=== PATIENT | female | born 1950 | race Caucasian/White ===

== ENCOUNTER → 2017-09-19 | Outpatient (CLI) | payer MEDICARE ==
[2017-09-19 11:23] LABS: Appearance,Urine Cloudy (Clear); Bacteria,Urine Many /hpf; Bilirubin,Urine Negative (Negative); Blood,Urine Negative (Negative); Color,Urine Yellow; Glucose,Urine (UA) Negative (Negative); Ketones,Urine Negative (Negative); Leukocyte Esterase,Urine Large (Negative); Mucus,Urine Rare /hpf; Nitrite,Urine Positive (Negative); Protein,Urine Negative (Negative); RBC,Urine 5 /hpf (0-5); Specific Gravity,Urine 1.014 (1.001-1.035); Squamous Epithelial Cell,Urine 4 /hpf (0-4); Urobilinogen,Urine <2.0 mg/dL (<2.0); WBC,Urine 83 /hpf (0-5)
[2017-09-19 11:45] LABS: Basophils % (A) 0 %; Eosinophils # (A) 0.2 k/uL (0-0.7); Eosinophils % (A) 3 %; HCT 41.9 % (34.0-46.0); Lymphocytes # (A) 1.9 k/uL (1.0-4.8); Lymphocytes % (A) 28 %; MCH 29.3 pg (25.0-35.0); MCHC 33.5 g/dL (31.0-37.0); MCV 87.6 fL (80.0-100.0); Mean Platelet Volume 7.3; Monocytes # (A) 0.4 k/uL (0-1.0); Monocytes % (A) 5 %; Neutrophils # (A) 4.3 k/uL (1.3-7.7); Neutrophils % (A) 62 %; Platelet Count 256 k/uL (150-450); RBC 4.78 m/uL (3.80-5.40); RDW 13.4 % (11.5-15.5); WBC 6.8 k/uL (3.8-10.6)
[2017-09-19 12:07] LABS: ALT 76 U/L (9-52); AST 42 U/L (14-36); Albumin 4.2 g/dL (3.5-5.0); Alkaline Phosphatase 57 U/L (38-126); Anion Gap 11 mmol/L; Blood Urea Nitrogen 23 mg/dL (7-17); Carbon Dioxide 29 mmol/L (22-30); Chloride 102 mmol/L (98-107); Cholesterol 210 mg/dL (<200); Glucose 105 mg/dL (74-99); HDL Cholesterol 63 mg/dL (40-60); LDL Cholesterol,Calculated 131 mg/dL (0-99); Potassium 4.1 mmol/L (3.5-5.1); Sodium 142 mmol/L (137-145); Total Bilirubin 0.5 mg/dL (0.2-1.3); Total Protein 6.9 g/dL (6.3-8.2); Triglycerides 82 mg/dL (<150)
[2017-09-19 16:07] LABS: Vitamin D 25 Hydroxy 24.8 ng/mL (30.0-100.0)
[2017-09-19 19:15] LABS: Hepatitis C IgG Antibody Non-Reactive (Non-Reactive)
== END | disposition home or self-care (01) ==
LOC: LABWHC1 10:44
PROVIDERS: ATTEND Internal Medicine
DX: E55.9 Vitamin D deficiency, unspecified (principal); I10 Essential (primary) hypertension; Z13.9 Encounter for screening, unspecified
CPT/HCPCS: 36415; 80053; 80061; 81001; 82306; 85025; 86803

== ENCOUNTER → 2017-10-06 | Outpatient (CLI) | payer MEDICARE ==
--- NOTE | 2017-10-06 14:14 | US ---
EXAMINATION TYPE: US liver DATE OF EXAM: 10/06/2017 COMPARISON: NONE CLINICAL HISTORY: R74.8 ABN LIVER ENZYMES. Elevated liver enzymes EXAM MEASUREMENTS: Liver Length: 14.4 cm Gallbladder Wall: 0.3 cm CBD: 0.4 cm Right Kidney: 9.1 x 4.7 x 4.8 cm Pancreas: Tail obscured by overlying bowel gas, visualized portions appear wnl Liver: attenuating , minimal fatty infiltration may be present. Gallbladder: no evidence of stones Evidence for sonographic Tavarez's sign: no CBD: appears wnl Right Kidney: no evidence of hydronephrosis IMPRESSION: 1. Normal right upper quadrant ultrasound.
== END | disposition home or self-care (01) ==
LOC: RADUSWWP 13:18
PROVIDERS: ATTEND Internal Medicine
DX: R74.8 Abnormal levels of other serum enzymes (principal)
CPT/HCPCS: 76705

== ENCOUNTER → 2017-10-28 | Outpatient (CLI) | payer MEDICARE ==
--- NOTE | 2017-10-29 10:47 | MM ---
Reason for exam: screening (asymptomatic). Last mammogram was performed 1 year and 2 months ago. History: Patient is postmenopausal and has history of other cancer at age 17. Family history of breast cancer in sister. Physical Findings: A clinical breast exam by your physician is recommended on an annual basis and results should be correlated with mammographic findings. MG 3D Screening Mammo W/Cad Bilateral CC and MLO view(s) were taken. Prior study comparison: August 14, 2016, mammogram, performed at [facility]. There are scattered fibroglandular densities. Finding: There are typically benign vascular calcifications in both breasts. There is no discrete abnormality. ASSESSMENT: Benign, BI-RAD 2 RECOMMENDATION: Routine screening mammogram of both breasts in 1 year.
== END | disposition home or self-care (01) ==
LOC: RADMAMWWP 06:49
PROVIDERS: ATTEND Internal Medicine
DX: Z12.31 Encounter for screening mammogram for malignant neoplasm of breast (principal)
CPT/HCPCS: 77063; 77067

== ENCOUNTER → 2018-09-18 | Outpatient (CLI) | payer MEDICARE ==
--- NOTE | 2018-09-18 10:29 | US ---
EXAMINATION TYPE: US liver DATE OF EXAM: 09/18/2018 COMPARISON: US 2018 CLINICAL HISTORY: R74.8 ABN LEVELS OF SERUM ENZYMES. Patient states no other symptoms EXAM MEASUREMENTS: Liver Length: 13.4 cm Gallbladder Wall: 0.2 cm CBD: 0.4 cm Right Kidney: 8.3 x 4.7 x 4.5 cm Difficult and limited study due to patient body habitus Pancreas: visualized portions wnl, head and tail limited by overlying midline bowel gas Liver: There is increased echogenicity of the hepatic parenchyma with diminished visualization of th e portal triads most commonly relating to hepatic steatosis and limiting evaluation for underlying he patic masses. Gallbladder: wnl Evidence for sonographic Tavarez's sign: no CBD: visualized portions wnl, limited by overlying bowel gas Right Kidney: measures small in size IMPRESSION: 1. Sonographic findings most commonly related to hepatic steatosis appearing mild to moderate degree. Correlate with liver function test results. 2. No sonographic evidence of cholelithiasis or acute cholecystitis.
== END | disposition home or self-care (01) ==
LOC: RADUSWWP 09:21
PROVIDERS: ATTEND Internal Medicine
DX: R74.8 Abnormal levels of other serum enzymes (principal)
CPT/HCPCS: 76705

== ENCOUNTER → 2019-10-11 | Outpatient (CLI) | payer MEDICARE ==
--- NOTE | 2019-10-11 14:52 | CT ---
EXAMINATION TYPE: CT brain wo con DATE OF EXAM: 10/11/2019 COMPARISON: None HISTORY: ALMARAZ, vision changes CT DLP: 945.[address] of the brain was performed. The ventricles, basal cisterns and sulci overlying the cerebral convexities demonstrate mild enlargem ent. There is no evidence for intracranial hemorrhage or sulcal effacement. There is decreased attenuation about the periventricular white matter and deep white matter of both c erebral hemispheres, compatible with chronic small vessel ischemia. Differential diagnosis does inclu de demyelination. No mass effects are seen.No midline shift. Osseous calvarium is intact. If symptoms persist consider MRI. IMPRESSION: 1. Age related atrophic and chronic small vessel ischemic change without acute intracranial process s een at this time.
== END | disposition home or self-care (01) ==
LOC: RADCTMAIN 14:15
PROVIDERS: ATTEND Internal Medicine
DX: G31.9 Degenerative disease of nervous system, unspecified (principal); R90.89 Other abnormal findings on diagnostic imaging of central nervous system
CPT/HCPCS: 70450

== ENCOUNTER → 2021-12-25 | Outpatient (CLI) | payer MEDICARE ==
--- NOTE | 2021-12-26 03:03 | MR ---
EXAMINATION TYPE: MR brain wo/w con DATE OF EXAM: 12/25/2021 COMPARISON: None HISTORY: Rapid onset dementia, hx lymphoma. CONTRAST: Standard multiplanar, multisequence MRI departmental protocol images were obtained without contrast a nd with 7 mL intravenous Gadavist gadolinium contrast. Ventricles of normal size. There is no mass effect or midline shift. There is no evidence of intracra nial hemorrhage. There is multiple foci of increased signal on the T2 and FLAIR images in the white m atter in both cerebral hemispheres. Total numbers approximately 20 and these measure up to 6 mm. The brainstem is intact. Cerebellum is intact. Corpus callosum is intact. There is mild cerebral atrophy. Diffusion images show no evidence of an acute infarct. The contrast images show normal enhancement of the venous sinuses. There is no pathologic enhancement . IMPRESSION: Cerebral atrophy. White matter signal changes likely related to microvascular ischemia. Demyelinating disease I think is less likely. No evidence of cortical infarct. No evidence of metastatic disease.
== END | disposition home or self-care (01) ==
LOC: RADMRIMAIN 12:08
PROVIDERS: ATTEND Psychiatry & Neurology Neurology
DX: F03.90 Unspecified dementia, unspecified severity, without behavioral disturbance, psychotic disturbance, mood disturbance, and anxiety (principal)
CPT/HCPCS: 70553; A9585

== ENCOUNTER 2023-02-05 13:37 | Inpatient (IN) | payer MEDICARE ==
--- NOTE | 2023-02-05 15:17 | ED ---
General Adult HPI - General Chief complaint: Recheck/Abnormal Lab/Rx Stated complaint: extremity pain, loss of memory Source: patient, family Mode of arrival: ambulatory Limitations: altered mental status - History of Present Illness Initial comments: Patient is a 72-year-old woman who arrives with a family friend who states that the patient is too demented to care for herself and that the patient's is currently admitted at [facility]. The patient has been complaining of some aches in the extremities but does not complain of that when I ask her. No fevers noted. Patient denies head, neck, chest or back pain. No change in urination or bowel movements noted -: unknown Consistency: constant Improves with: none Worsens with: none Associated Symptoms: denies other symptoms - Related Data Home Medications Medication Instructions Recorded Confirmed Donepezil HCl [Aricept] 10 mg PO BID 02/05/23 02/05/23 Omeprazole [PriLOSEC] 40 mg PO DAILY 02/05/23 02/05/23 amLODIPine [Norvasc] 5 mg PO DAILY 02/05/23 02/05/23 Previous Rx's Medication Instructions Recorded ALPRAZolam [Xanax] 0.25 mg PO BID PRN #4 tab 02/07/23 Calcium Carbonate [Tums] 1,000 mg PO Q4HR PRN tab 02/07/23 QUEtiapine [SEROquel] 12.5 mg PO HS PRN tab 02/07/23 Allergies Allergy/AdvReac Type Severity Reaction Status Date / Time lisinopril Allergy Swelling Verified 02/16/23 14:11 Review of Systems ROS Statement: Those systems with pertinent positive or pertinent negative responses have been documented in the HPI. ROS Other: All systems not noted in ROS Statement are negative. Constitutional: Denies: fever Respiratory: Denies: cough, dyspnea Cardiovascular: Denies: chest pain Gastrointestinal: Denies: abdominal pain, vomiting Genitourinary: Denies: dysuria Musculoskeletal: Denies: back pain Neurological: Denies: headache Past Medical History Past Medical History: Unable to Obtain, Dementia History of Any Multi-Drug Resistant Organisms: None Reported Past Surgical History: Unable to Obtain Past Psychological History: Anxiety, Depression Smoking Status: Never smoker Past Alcohol Use History: Rare Past Drug Use History: None Reported General Exam Limitations: altered mental status General appearance: alert, in no apparent distress Head exam: Present: atraumatic, normocephalic Eye exam: Present: normal appearance. Absent: scleral icterus, conjunctival injection ENT exam: Present: normal oropharynx Neck exam: Present: normal inspection, full ROM. Absent: tenderness Respiratory exam: Present: normal lung sounds bilaterally. Absent: respiratory distress, wheezes, rales, rhonchi, stridor Cardiovascular Exam: Present: regular rate, normal rhythm, normal heart sounds. Absent: systolic murmur, diastolic murmur, rubs, gallop GI/Abdominal exam: Present: soft. Absent: distended, tenderness, guarding, rebound, rigid, mass Extremities exam: Present: normal inspection, normal capillary refill. Absent: pedal edema, calf tenderness Back exam: Present: normal inspection. Absent: CVA tenderness (R), CVA tenderness (L) Neurological exam: Present: alert, CN II-XII intact. Absent: oriented X3 (Patient is oriented to person and realizes she is at a hospital), motor sensory deficit Skin exam: Present: warm, dry, intact, normal color. Absent: rash Course Vital Signs 02/05/23 02/06/23 02/06/23 13:51 07:03 12:20 Temperature 97.6 F 97.1 F L Pulse Rate 62 72 Respiratory 20 18 18 Rate Blood Pressure 152/86 169/91 O2 Sat by Pulse 99 95 99 Oximetry 02/06/23 17:09 Temperature Pulse Rate 57 L Respiratory 18 Rate Blood Pressure 162/85 O2 Sat by Pulse 99 Oximetry EKG Findings - EKG Results: EKG: interpreted by ERMD, sinus rhythm, normal axis EKG shows: bradycardia (Rate 49 bpm) - Blocks, [place], Hypertrophy, ST Abn: QRS axis and voltage: low voltage (<0.5 MV total QRS and <1.0 MV in each precordial lead) Medical Decision Making - Medical Decision Making This patient is a 72-year-old woman here to have evaluation of altered mental status. He patient's physical exam is most consistent with probable dementia. The workup is unremarkable. After the workup is completed, the patient's stenotypist could not be found. Nursing staff made a number of calls to attempt to reach someone who is able to care for the patient but was unable. Patient will be admitted overnight as she is unable to care for herself. Social work will be involved to see if patient is able to be discharged as safe location requires placement. Was pt. sent in by a medical professional or institution (, GEOVANNY, FEED PROJECT ENGINEER, urgent care, hospital, or group home...) When possible be specific @ -[No] Did you speak to anyone other than the patient for history (EMS, parent, family, police, friend...)? What history was obtained from this source @ -[The patient's friend had given most of the history as the patient appears to have significant underlying dementia Did you review nursing and triage notes (agree or disagree)? Why? @ -[I reviewed and agree with nursing and triage notes] Were old charts reviewed (outside hosp., previous admission, EMS record, old EKG, old radiological studies, urgent care reports/EKG's, group home records)? Report findings @ -[No old charts were reviewed] Differential Diagnosis (chest pain, altered mental status, abdominal pain women, abdominal pain men, vaginal bleeding, weakness, fever, dyspnea, syncope, headache, dizziness, GI bleed, back pain, seizure, CVA, palpatations, mental health, musculoskeletal)? @ -[Differential Altered Mental Status: Hypoglycemia, DKA, hypercapnia, ETOH, overdose, CO poisoning, trauma, myxedema coma, HTN encephalopathy, infection, encephalitis, psychosis, intercranial hemorrhage, hepatic encephalopathy, meningitis, CVA, this is not meant to be an all-inclusive list EKG interpreted by me (3pts min.). @ -[As above] X-rays interpreted by me (1pt min.). @ -[None done] CT interpreted by me (1pt min.). @ -[As above U/S interpreted by me (1pt. min.). @ -[None done] What testing was considered but not performed or refused? (CT, X-rays, U/S, labs)? Why? @ -[None] What meds were considered but not given or refused? Why? @ -[None] Did you discuss the management of the patient with other professionals (professionals i.e. GEOVANNY Rdz, FEED PROJECT ENGINEER, lab, RT, psych nurse, social media intern, licensing manager, teacher, natural resource officer, hospice case manager)? Give summary @ -[Discussed with admitting physician Was smoking cessation discussed for >3mins.? @ -[No] Was critical care preformed (if so, how long)? @ -[No] Were there social determinants of health that impacted care today? How? (Homelessness, low income, unemployed, alcoholism, drug addiction, transportation, low edu. Level, literacy, decrease access to med. care, nursing home, rehab)? @ -[No] Was there de-escalation of care discussed even if they declined (Discuss DNR or withdrawal of care, Hospice)? DNR status @ -[No] What co-morbidities impacted this encounter? (DM, HTN, Smoking, COPD, CAD, Cancer, CVA, ARF, Chemo, Hep., AIDS, mental health diagnosis, sleep apnea, morbid obesity)? @ -[None] Was patient admitted / discharged? Hospital course, mention meds given and route, prescriptions, significant lab abnormalities, going to OR and other pertinent info. @ -[The patient is admitted, as there is not a definite safe discharge location Undiagnosed new problem with uncertain prognosis? @ -[No] Drug Therapy requiring intensive monitoring for toxicity (Heparin, Nitro, Insulin, Cardizem)? @ -[No] Were any procedures done? @ -[No] Diagnosis/symptom? @ -[Altered mental status Suspect acute on chronic dementia Acute, or Chronic, or Acute on Chronic? @ -[As above Uncomplicated (without systemic symptoms) or Complicated (systemic symptoms)? @ -[Uncomplicated Side effects of treatment? @ -[No] Exacerbation, Progression, or Severe Exacerbation? @ -[No] Poses a threat to life or bodily function? How? (Chest pain, USA, IA, pneumonia, PE, COPD, DKA, ARF, appy, cholecystitis, CVA, Diverticulitis, Homicidal, Suicidal, threat to staff... and all critical care pts) @ -[No] - Lab Data Result diagrams: 02/17/23 06:38 02/17/23 06:38 Lab Results 02/05/23 02/05/23 02/05/23 Range/Units 15:30 15:30 15:30 WBC 6.5 (3.8-10.6) k/uL RBC 4.62 (3.80-5.40) m/uL Hgb 13.8 (11.4-16.0) gm/dL Hct 39.9 (34.0-46.0) % MCV 86.4 (80.0-100.0) fL MCH 29.9 (25.0-35.0) pg MCHC 34.6 (31.0-37.0) g/dL RDW 13.0 (11.5-15.5) % Plt Count 209 (150-450) k/uL MPV 7.8 Neutrophils % 67 % Lymphocytes % 24 % Monocytes % 7 % Eosinophils % 1 % Basophils % 0 % Neutrophils # 4.4 (1.3-7.7) k/uL Lymphocytes # 1.6 (1.0-4.8) k/uL Monocytes # 0.4 (0-1.0) k/uL Eosinophils # 0.1 (0-0.7) k/uL Basophils # 0.0 (0-0.2) k/uL Sodium 137 (137-145) mmol/L Potassium 3.9 (3.5-5.1) mmol/L Chloride 103 (98-107) mmol/L Carbon Dioxide 26 (22-30) mmol/L Anion Gap 8 mmol/L BUN 17 (7-17) mg/dL Creatinine 1.03 (0.52-1.04) mg/dL Est GFR (CKD-EPI)AfAm 63 (>60 ml/min/1.73 sqM) Est GFR (CKD-EPI)NonAf 55 (>60 ml/min/1.73 sqM) Glucose 89 (74-99) mg/dL Calcium 9.1 (8.4-10.2) mg/dL Total Bilirubin 0.6 (0.2-1.3) mg/dL AST 36 (14-36) U/L ALT 25 (4-34) U/L Alkaline Phosphatase 44 (38-126) U/L Total Protein 6.8 (6.3-8.2) g/dL Albumin 4.3 (3.5-5.0) g/dL Urine Color Colorless Urine Appearance Clear (Clear) Urine pH 7.0 (5.0-8.0) Ur Specific [place] 1.004 (1.001-1.035) Urine Protein Negative (Negative) Urine Glucose (UA) Negative (Negative) Urine Ketones Negative (Negative) Urine Blood Negative (Negative) Urine Nitrite Negative (Negative) Urine Bilirubin Negative (Negative) Urine Urobilinogen <2.0 (<2.0) mg/dL Ur Leukocyte Esterase Negative (Negative) Disposition Clinical Impression: Dementia, Altered mental status Disposition: ADMITTED IP TO THIS HOSP Condition: Poor Is patient prescribed a controlled substance at d/c from ED?: No
[2023-02-05 16:02] LABS: Basophils % (A) 0 %; Eosinophils # (A) 0.1 k/uL (0-0.7); Eosinophils % (A) 1 %; HCT 39.9 % (34.0-46.0); HGB 13.8 gm/dL (11.4-16.0); Lymphocytes # (A) 1.6 k/uL (1.0-4.8); Lymphocytes % (A) 24 %; MCH 29.9 pg (25.0-35.0); MCHC 34.6 g/dL (31.0-37.0); MCV 86.4 fL (80.0-100.0); Mean Platelet Volume 7.8; Monocytes # (A) 0.4 k/uL (0-1.0); Monocytes % (A) 7 %; Neutrophils # (A) 4.4 k/uL (1.3-7.7); Neutrophils % (A) 67 %; Platelet Count 209 k/uL (150-450); RBC 4.62 m/uL (3.80-5.40); WBC 6.5 k/uL (3.8-10.6)
[2023-02-05 16:18] LABS: Albumin 4.3 g/dL (3.5-5.0); Calcium 9.1 mg/dL (8.4-10.2); Potassium 3.9 mmol/L (3.5-5.1); Total Bilirubin 0.6 mg/dL (0.2-1.3); Total Protein 6.8 g/dL (6.3-8.2)
--- NOTE | 2023-02-05 17:13 | XR ---
EXAMINATION TYPE: XR chest 2V DATE OF EXAM: 02/05/2023 5:07 PM COMPARISON: None TECHNIQUE: XR chest 2V Frontal and lateral views of the chest. CLINICAL INDICATION:Female, 72 years old with history of mental status change; FINDINGS: Lungs/Pleura: There is no evidence of pleural effusion, focal consolidation, or pneumothorax. Right upper lobe calcified granuloma Pulmonary vascularity: Unremarkable. Heart/mediastinum: Cardiomediastinal silhouette is unremarkable. Musculoskeletal: No acute osseous pathology. Mild degenerative disc disease of the thoracic spine. IMPRESSION: No acute cardiopulmonary disease/process.
[2023-02-05 18:17] LABS: Appearance,Urine Clear (Clear); Bilirubin,Urine Negative (Negative); Blood,Urine Negative (Negative); Color,Urine Colorless; Glucose,Urine (UA) Negative (Negative); Ketones,Urine Negative (Negative); Leukocyte Esterase,Urine Negative (Negative); Nitrite,Urine Negative (Negative); Protein,Urine Negative (Negative); Specific Gravity,Urine 1.004 (1.001-1.035); Urobilinogen,Urine <2.0 mg/dL (<2.0)
--- NOTE | 2023-02-05 19:15 | CT ---
EXAMINATION TYPE: CT brain wo con CT DLP: 1088.4 mGycm, Automated exposure control for dose reduction was used. DATE OF EXAM: 02/05/2023 6:51 PM COMPARISON: Prior CT Brain from 10/11/2019. CLINICAL INDICATION:Female, 72 years old with history of mental status change, AMS TECHNIQUE: Brain: Multiple axial CT images of the brain were obtained without IV contrast. Coronal and sagittal reformats reviewed. FINDINGS: Brain: Extra-axial spaces: No abnormal extra-axial fluid collections. Ventricular system: Within normal limits Cerebral parenchyma: Cerebral atrophy. No acute intraparenchymal hemorrhage or mass effect. The dale -white junction is well differentiated. Scattered hypoattenuating areas are seen within the white mat ter. Cerebellum: Unremarkable. Mass effect: No evidence of midline shift. Intracranial vasculature: unremarkable Soft tissues: Normal. Calvarium/osseous structures: No depressed skull fracture. Benign hyperostosis frontalis noted. Paranasal sinuses and mastoid air cells: Clear Visualized orbits: Orbital contents are intact. IMPRESSION: 1. No acute intracranial process. 2. Nonspecific white matter changes, likely secondary to chronic small vessel ischemic disease.
[2023-02-05] MEDS ORDERED: CALCIUM CARBONATE 500 MG CHEWABLE PO PRN (23:56)
[2023-02-05] MEDS ORDERED: ONDANSETRON 4 MG/2 ML VIAL IVP PRN (23:56)
[2023-02-05] MEDS ORDERED: ALPRAZolam 0.25 MG TAB PO PRN (23:56)
[2023-02-05] MEDS ORDERED: NALOXONE 0.4 MG/ML 1 ML VIAL IV PRN (23:56)
[2023-02-06] MEDS: SODIUM CHLORIDE 0.9% 1,000 ML IV SCH (07:30)
[2023-02-06] MEDS: ACETAMINOPHEN TAB 325 MG TAB PO PRN (08:56)
--- NOTE | 2023-02-06 11:59 | P.HPIM ---
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 Basic labs are essentially within normal limits. No significant abnormality was evident on chest x-ray and CT of the head REVIEW OF SYSTEMS: Unable to obtain PHYSICAL EXAMINATION: GENERAL: The patient is alert and oriented x1, not in any acute distress. Well developed, well nourished. HEENT: Pupils are round and equally reacting to light. EOMI. No scleral icterus. No conjunctival pallor. Normocephalic, atraumatic. No pharyngeal erythema. No thyromegaly. CARDIOVASCULAR: S1 and S2 present. No murmurs, rubs, or gallops. PULMONARY: Chest is clear to auscultation, no wheezing or crackles. ABDOMEN: Soft, nontender, nondistended, normoactive bowel sounds. No palpable organomegaly. MUSCULOSKELETAL: No joint swelling or deformity. EXTREMITIES: No cyanosis, clubbing, or pedal edema. NEUROLOGICAL: Gross neurological examination did not reveal any focal deficits. Limited neurological exam because of her advanced dementia SKIN: No rashes. Assessment and plan -Advanced dementia patient is presently not encephalopathic patient confusion is at her baseline. We'll obtain PT and OT consultation patient may need placement at the subacute rehab or a dementia unit. -Anxiety disorder patient is on Xanax scheduled which will be discontinued will cut down the dose of Xanax will make it as needed. Will use Seroquel for agitation. -Hypertension DVT prophylaxis: Lovenox Past Medical History Past Medical History: Unable to Obtain, Dementia History of Any Multi-Drug Resistant Organisms: None Reported Past Surgical History: Unable to Obtain Past Psychological History: Anxiety, Depression Smoking Status: Never smoker Past Alcohol Use History: Rare Past Drug Use History: None Reported Medications and Allergies Home Medications Medication Instructions Recorded Confirmed Type ALPRAZolam [Xanax] 0.5 mg PO BID 02/05/23 02/05/23 History ALPRAZolam [Xanax] 1 mg PO DAILY@1500 02/05/23 02/05/23 History Donepezil HCl [Aricept] 10 mg PO BID 02/05/23 02/05/23 History Omeprazole [PriLOSEC] 40 mg PO DAILY 02/05/23 02/05/23 History amLODIPine [Norvasc] 5 mg PO DAILY 02/05/23 02/05/23 History methocarbamoL [Robaxin-750] 375 mg PO BID 02/05/23 02/05/23 History Allergies Allergy/AdvReac Type Severity Reaction Status Date / Time No Known Allergies Allergy Verified 02/05/23 18:46 Physical Exam Vitals: Vital Signs Temp Pulse Resp BP Pulse Ox 02/06/23 07:03 18 95 02/05/23 13:51 97.6 F 62 20 152/86 99 Results CBC & Chem 7: 02/05/23 15:30 02/05/23 15:30
[2023-02-06] MEDS: amLODIPine 5 MG TAB PO SCH (12:37)
[2023-02-06] MEDS: ENOXAPARIN 40 MG/0.4 ML SYRINGE SQ SCH (13:14)
[2023-02-06] MEDS: DONEPEZIL 10 MG TAB PO SCH (21:44)
[2023-02-07] MEDS: SODIUM CHLORIDE 0.9% 1,000 ML IV SCH (06:33)
[2023-02-07] MEDS: PANTOPRAZOLE 40 MG TABLET PO SCH (06:44)
[2023-02-07] MEDS: ENOXAPARIN 40 MG/0.4 ML SYRINGE SQ SCH (07:42)
[2023-02-07] MEDS: amLODIPine 5 MG TAB PO SCH (07:42)
[2023-02-07] MEDS: DONEPEZIL 10 MG TAB PO SCH ×2 (07:42→21:39)
--- NOTE | 2023-02-07 15:09 | P.PN ---
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 Basic labs are essentially within normal limits. No significant abnormality was evident on chest x-ray and CT of the head 02/07/2023 Pending PT/OT evauation and placement. Hemodynamically stable. Discharge planning in progress with social work. Patient is evaluated today up in the chair with staff at the bedside. Patient is alert x 1 and pleasant with no acute complaints. APS services is following the patient. Review of Systems Constitutional: Denied any fatigue denied any fever. Cardio vascular: denied any chest pain, palpitations Gastrointestinal: denied any nausea, vomiting, diarrhea Pulmonary: Denied any shortness of breath cough Neurologic denied any new focal deficits All inpatient medications were reviewed and appropriate changes in these medications as dictated in the interval history and assessment and plan. PHYSICAL EXAMINATION: GENERAL: The patient is alert and oriented x1, not in any acute distress. Well developed, well nourished. HEENT: Pupils are round and equally reacting to light. EOMI. No scleral icterus. No conjunctival pallor. Normocephalic, atraumatic. No pharyngeal erythema. No thyromegaly. CARDIOVASCULAR: S1 and S2 present. No murmurs, rubs, or gallops. PULMONARY: Chest is clear to auscultation, no wheezing or crackles. ABDOMEN: Soft, nontender, nondistended, normoactive bowel sounds. No palpable organomegaly. MUSCULOSKELETAL: No joint swelling or deformity. EXTREMITIES: No cyanosis, clubbing, or pedal edema. NEUROLOGICAL: Gross neurological examination did not reveal any focal deficits. Limited neurological exam because of her advanced dementia SKIN: No rashes. Assessment and plan -Advanced dementia patient is presently not encephalopathic patient confusion is at her baseline. Patient will require ECF placement and social work is following. May also require legal guardian. -Anxiety disorder xanax as needed with seroquel at HS -Hypertension resumed on home medications DVT prophylaxis: Lovenox GI prophylaxis: Protonix Full Code Plan medically stable for discharge pending DC planning with social work. The impression and plan of care has been dictated by Balbina Omalley Nurse Pr actitioner as directed. Dr. Valentina MD I have performed a history and physical examination and medical decision making of this patient, discussed the same with the dictator, and agree with the dicta tors assessment and plan as written, documented as a scribe. Based on total visit time, I have performed more than 50% of this visit. Objective - Vital Signs Vital signs: Vital Signs Temp 97.7 F 02/07/23 07:16 Pulse 53 L 02/07/23 07:16 Resp 18 02/07/23 07:42 BP 143/82 02/07/23 07:16 Pulse Ox 100 02/07/23 07:16 FiO2 Intake & Output 02/06/23 02/07/23 02/07/23 18:59 06:59 18:59 Intake Total 100 Balance 100 Intake: Oral 100 Other: Voiding Method Toilet # Voids 2 - Labs CBC & Chem 7: 02/05/23 15:30 02/05/23 15:30 Assessment and Plan Time with Patient: Less than 30
[2023-02-08] MEDS: SODIUM CHLORIDE 0.9% 1,000 ML IV SCH ×2 (02:02→20:24)
[2023-02-08] MEDS: PANTOPRAZOLE 40 MG TABLET PO SCH (06:29)
[2023-02-08] MEDS: ENOXAPARIN 40 MG/0.4 ML SYRINGE SQ SCH (08:58)
[2023-02-08] MEDS: amLODIPine 5 MG TAB PO SCH (08:58)
[2023-02-08] MEDS: DONEPEZIL 10 MG TAB PO SCH ×2 (08:58→20:26)
--- NOTE | 2023-02-09 00:10 | P.PN ---
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 Basic labs are essentially within normal limits. No significant abnormality was evident on chest x-ray and CT of the head 02/07/2023 Pending PT/OT evauation and placement. Hemodynamically stable. Discharge planning in progress with social work. Patient is evaluated today up in the chair with staff at the bedside. Patient is alert x 1 and pleasant with no acute complaints. APS services is following the patient. 02/08/2023 Patient unable to be discharged to subacute rehab yesterday as patient is pending guardianship with APS following and will require ECF on discharge. Patient remains alert x 1, pleasant does have difficulty findings words this is baseline with advanced dementia at baseline. Patient is asking about her today. Patient has no complaints at this time. Review of Systems Constitutional: Denied any fatigue denied any fever. Cardio vascular: denied any chest pain, palpitations Gastrointestinal: denied any nausea, vomiting, diarrhea Pulmonary: Denied any shortness of breath cough Neurologic denied any new focal deficits All inpatient medications were reviewed and appropriate changes in these medications as dictated in the interval history and assessment and plan. PHYSICAL EXAMINATION: GENERAL: The patient is alert and oriented x1, not in any acute distress. Well developed, well nourished. HEENT: Pupils are round and equally reacting to light. EOMI. No scleral icterus. No conjunctival pallor. Normocephalic, atraumatic. No pharyngeal erythema. No thyromegaly. CARDIOVASCULAR: S1 and S2 present. No murmurs, rubs, or gallops. PULMONARY: Chest is clear to auscultation, no wheezing or crackles. ABDOMEN: Soft, nontender, nondistended, normoactive bowel sounds. No palpable organomegaly. MUSCULOSKELETAL: No joint swelling or deformity. EXTREMITIES: No cyanosis, clubbing, or pedal edema. NEUROLOGICAL: Gross neurological examination did not reveal any focal deficits. Limited neurological exam because of her advanced dementia SKIN: No rashes. Assessment and plan -Advanced dementia patient is presently not encephalopathic patient confusion is at her baseline. Patient will require ECF placement and social work is edna purvis. May also require legal guardian APS is following the patient. -Anxiety disorder xanax as needed with seroquel at HS -Hypertension resumed on home medications DVT prophylaxis: Lovenox GI prophylaxis: Protonix Full Code Plan medically stable for discharge pending DC planning with social work. The impression and plan of care has been dictated by Nurse Tiana Pra ctitioner as directed. Dr. Valentina MD I have performed a history and physical examination and medical decision making of this patient, discussed the same with the dictator, and agree with the dictat ors assessment and plan as written, documented as a scribe. Based on total visit time, I have performed more than 50% of this visit. Objective - Vital Signs Vital signs: Vital Signs Temp 98.4 F 02/08/23 07:25 Pulse 59 L 02/08/23 07:25 Resp 17 02/08/23 07:25 BP 174/77 02/08/23 07:25 Pulse Ox 99 02/08/23 07:25 FiO2 Intake & Output 02/07/23 02/08/23 02/08/23 18:59 06:59 18:59 Intake Total 500 Balance 500 Intake: Oral 500 Other: Voiding Method Toilet # Voids 3 4 - Labs CBC & Chem 7: 02/05/23 15:30 02/05/23 15:30 Assessment and Plan Time with Patient: Less than 30
[2023-02-09] MEDS: amLODIPine 5 MG TAB PO SCH (09:54)
[2023-02-09] MEDS: PANTOPRAZOLE 40 MG TABLET PO SCH (09:54)
[2023-02-09] MEDS: ENOXAPARIN 40 MG/0.4 ML SYRINGE SQ SCH (09:55)
[2023-02-09] MEDS: DONEPEZIL 10 MG TAB PO SCH ×2 (09:55→20:58)
[2023-02-09] MEDS: lisinopriL 5 MG TAB PO SCH (11:02)
--- NOTE | 2023-02-09 15:01 | P.PN ---
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 Basic labs are essentially within normal limits. No significant abnormality was evident on chest x-ray and CT of the head 02/07/2023 Pending PT/OT evauation and placement. Hemodynamically stable. Discharge planning in progress with social work. Patient is evaluated today up in the chair with staff at the bedside. Patient is alert x 1 and pleasant with no acute complaints. APS services is following the patient. 02/08/2023 Patient unable to be discharged to subacute rehab yesterday as patient is pending guardianship with APS following and will require ECF on discharge. Patient remains alert x 1, pleasant does have difficulty findings words this is baseline with advanced dementia at baseline. Patient is asking about her today. Patient has no complaints at this time. 02/09/2023 Patient has no acute complaints overnight. Patient has been up ambulating in the room and dressed in street clothes. Patient is asking about discharge. May require legal guardian and also APS following with ECF needed on discharge. Patient has advanced dementia at baseline. Review of Systems Constitutional: Denied any fatigue denied any fever. Cardio vascular: denied any chest pain, palpitations Gastrointestinal: denied any nausea, vomiting, diarrhea Pulmonary: Denied any shortness of breath cough Neurologic denied any new focal deficits All inpatient medications were reviewed and appropriate changes in these medications as dictated in the interval history and assessment and plan. PHYSICAL EXAMINATION: GENERAL: The patient is alert and oriented x1, not in any acute distress. Well developed, well nourished. HEENT: Pupils are round and equally reacting to light. EOMI. No scleral icterus. No conjunctival pallor. Normocephalic, atraumatic. No pharyngeal erythema. No thyromegaly. CARDIOVASCULAR: S1 and S2 present. No murmurs, rubs, or gallops. PULMONARY: Chest is clear to auscultation, no wheezing or crackles. ABDOMEN: Soft, nontender, nondistended, normoactive bowel sounds. No palpable organomegaly. MUSCULOSKELETAL: No joint swelling or deformity. EXTREMITIES: No cyanosis, clubbing, or pedal edema. NEUROLOGICAL: Gross neurological examination did not reveal any focal deficits. Limited neurological exam because of her advanced dementia SKIN: No rashes. Assessment and plan -Advanced dementia patient is presently not encephalopathic patient confusion is at her baseline. Patient will require ECF placement and social work is following. May also require legal guardian APS is following the patient. -Anxiety disorder xanax as needed with seroquel at HS -Hypertension resumed on home medications DVT prophylaxis: Lovenox GI prophylaxis: Protonix Full Code Plan medically stable for discharge pending DC planning with social work. The impression and plan of care has been dictated by Balbina Omalley Nurse Practitioner as directed. Dr. Valentina MD I have performed a history and physical examination and medical decision making of this patient, discussed the same with the dictator, and agree with the dictators assessment and plan as written, documented as a scribe. Based on total visit time, I have performed more than 50% of this visit. Objective - Vital Signs Vital signs: Vital Signs Temp 98.7 F 02/09/23 07:56 Pulse 65 02/09/23 07:56 Resp 16 02/09/23 07:56 BP 174/87 02/09/23 07:56 Pulse Ox 98 02/09/23 07:56 FiO2 Intake & Output 02/08/23 02/09/23 02/09/23 18:59 06:59 18:59 Other: # Voids 3 3 # Bowel Movements 1 1 - Labs CBC & Chem 7: 02/05/23 15:30 02/05/23 15:30 Assessment and Plan Time with Patient: Less than 30
[2023-02-10] MEDS: SODIUM CHLORIDE 0.9% 1,000 ML IV SCH (02:15)
[2023-02-10] MEDS: lisinopriL 5 MG TAB PO SCH (08:00)
[2023-02-10] MEDS: PANTOPRAZOLE 40 MG TABLET PO SCH (08:00)
[2023-02-10] MEDS: DONEPEZIL 10 MG TAB PO SCH ×2 (08:00→23:31)
[2023-02-10] MEDS: amLODIPine 5 MG TAB PO SCH (08:00)
[2023-02-10] MEDS: ENOXAPARIN 40 MG/0.4 ML SYRINGE SQ SCH (08:01)
--- NOTE | 2023-02-10 14:59 | P.PN ---
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 Basic labs are essentially within normal limits. No significant abnormality was evident on chest x-ray and CT of the head 02/07/2023 Pending PT/OT evauation and placement. Hemodynamically stable. Discharge planning in progress with social work. Patient is evaluated today up in the chair with staff at the bedside. Patient is alert x 1 and pleasant with no acute complaints. APS services is following the patient. 02/08/2023 Patient unable to be discharged to subacute rehab yesterday as patient is pending guardianship with APS following and will require ECF on discharge. Patient remains alert x 1, pleasant does have difficulty findings words this is baseline with advanced dementia at baseline. Patient is asking about her today. Patient has no complaints at this time. 02/09/2023 Patient has no acute complaints overnight. Patient has been up ambulating in the room and dressed in street clothes. Patient is asking about discharge. May require legal guardian and also APS following with ECF needed on discharge. Patient has advanced dementia at baseline. 02/10/2023 Patient currently with no acute complaints. Alert x 1 today and pleasant. Pending guardianship and placement currently. Follow up with social work. Review of Systems Constitutional: Denied any fatigue denied any fever. Cardio vascular: denied any chest pain, palpitations Gastrointestinal: denied any nausea, vomiting, diarrhea Pulmonary: Denied any shortness of breath cough Neurologic denied any new focal deficits All inpatient medications were reviewed and appropriate changes in these medications as dictated in the interval history and assessment and plan. PHYSICAL EXAMINATION: GENERAL: The patient is alert and oriented x1, not in any acute distress. Well developed, well nourished. HEENT: Pupils are round and equally reacting to light. EOMI. No scleral icterus. No conjunctival pallor. Normocephalic, atraumatic. No pharyngeal erythema. No thyromegaly. CARDIOVASCULAR: S1 and S2 present. No murmurs, rubs, or gallops. PULMONARY: Chest is clear to auscultation, no wheezing or crackles. ABDOMEN: Soft, nontender, nondistended, normoactive bowel sounds. No palpable organomegaly. MUSCULOSKELETAL: No joint swelling or deformity. EXTREMITIES: No cyanosis, clubbing, or pedal edema. NEUROLOGICAL: Gross neurological examination did not reveal any focal deficits. Limited neurological exam because of her advanced dementia SKIN: No rashes. Assessment and plan -Advanced dementia patient is presently not encephalopathic patient confusion is at her baseline. Patient will require ECF placement and social work is following. May also require legal guardian APS is following the patient. -Anxiety disorder xanax as needed with seroquel at HS -Hypertension resumed on home medications DVT prophylaxis: Lovenox GI prophylaxis: Protonix Full Code Plan medically stable for discharge pending DC planning with social work. The impression and plan of care has been dictated by Balbina Omalley Nurse Practitioner as directed. Dr. Valentina MD I have performed a history and physical examination and medical decision making of this patient, discussed the same with the dictator, and agree with the dictators assessment and plan as written, documented as a scribe. Based on total visit time, I have performed more than 50% of this visit. Objective - Vital Signs Vital signs: Vital Signs Temp 98.2 F 02/10/23 12:34 Pulse 54 L 02/10/23 12:34 Resp 17 02/10/23 12:34 BP 129/73 02/10/23 12:34 Pulse Ox 99 02/10/23 12:34 FiO2 Intake & Output 02/09/23 02/10/23 02/10/23 18:59 06:59 18:59 Intake Total 180 Balance 180 Intake: Oral 180 Other: # Voids 2 1 - Labs CBC & Chem 7: 02/05/23 15:30 02/05/23 15:30 Assessment and Plan Time with Patient: Less than 30
[2023-02-11] MEDS: SODIUM CHLORIDE 0.9% 1,000 ML IV SCH (04:10)
[2023-02-11] MEDS: DONEPEZIL 10 MG TAB PO SCH ×2 (10:55→20:07)
[2023-02-11] MEDS: PANTOPRAZOLE 40 MG TABLET PO SCH (10:55)
[2023-02-11] MEDS: ENOXAPARIN 40 MG/0.4 ML SYRINGE SQ SCH (10:55)
[2023-02-11] MEDS: amLODIPine 5 MG TAB PO SCH (10:55)
[2023-02-11] MEDS: lisinopriL 5 MG TAB PO SCH (10:55)
--- NOTE | 2023-02-11 20:45 | P.PN ---
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 Basic labs are essentially within normal limits. No significant abnormality was evident on chest x-ray and CT of the head 02/07/2023 Pending PT/OT evauation and placement. Hemodynamically stable. Discharge planning in progress with social work. Patient is evaluated today up in the chair with staff at the bedside. Patient is alert x 1 and pleasant with no acute complaints. APS services is following the patient. 02/08/2023 Patient unable to be discharged to subacute rehab yesterday as patient is pending guardianship with APS following and will require ECF on discharge. Patient remains alert x 1, pleasant does have difficulty findings words this is baseline with advanced dementia at baseline. Patient is asking about her today. Patient has no complaints at this time. 02/09/2023 Patient has no acute complaints overnight. Patient has been up ambulating in the room and dressed in street clothes. Patient is asking about discharge. May require legal guardian and also APS following with ECF needed on discharge. Patient has advanced dementia at baseline. 02/10/2023 Patient currently with no acute complaints. Alert x 1 today and pleasant. Pending guardianship and placement currently. Follow up with social work. 02/11/2023 Patient is seen and evaluated in follow-up currently sitting up in bed with no reports of nausea or vomiting noted. Patient reports tolerating diet. Patient denies chest pain or shortness of breath and currently awaiting possible guardianship hearing on Friday. Social work is involved and has been working with arranging for AFC availability as well as APS. Patient continues to be at her baseline alert and oriented 1 and is pleasant and cooperative. Will follow-up with repeat labs in a.m. Review of Systems Constitutional: Denied any fatigue denied any fever. Cardio vascular: denied any chest pain, palpitations Gastrointestinal: denied any nausea, vomiting, diarrhea Pulmonary: Denied any shortness of breath cough Neurologic denied any new focal deficits All inpatient medications were reviewed and appropriate changes in these medications as dictated in the interval history and assessment and plan. PHYSICAL EXAMINATION: GENERAL: The patient is alert and oriented x1. Well developed, well nourished. HEENT: Pupils are round and equally reacting to light. EOMI. No scleral icterus. No conjunctival pallor. Normocephalic, atraumatic. No pharyngeal erythema. No thyromegaly. CARDIOVASCULAR: S1 and S2 present. No murmurs, rubs, or gallops. PULMONARY: Chest is clear to auscultation, no wheezing or crackles. ABDOMEN: Soft, nontender, nondistended, normoactive bowel sounds. No palpable organomegaly. MUSCULOSKELETAL: No joint swelling or deformity. EXTREMITIES: No cyanosis, clubbing, or pedal edema. NEUROLOGICAL: Gross neurological examination did not reveal any focal deficits. Limited neurological exam because of her advanced dementia SKIN: No rashes. Assessment: -Advanced dementia patient is presently not encephalopathic patient confusion is at her baseline. -Anxiety disorder -Hypertension -DVT prophylaxis: Lovenox -GI prophylaxis: Protonix -Full Code Plan: Patient will require ECF placement and social work is following. May also require legal guardian APS is following the patient. Plans for meeting with APS as well as working on other AFC options and patient does have guardianship hearing on Friday with social work following working on discharge planning Will follow-up with repeat labs Encouraged oral intake Patient is an elopement risk and at baseline alert and oriented 1 with advanced dementia Recommend continue current medication regimen Blood pressure mildly elevated will increase Norvasc Patient is medically stable for discharge pending DC planning with social work. Prognosis guarded The impression and plan of care has been dictated by Pepper Pablo, Nurse Practitioner as directed. Dr. Jimmy MD I have performed a history and examination and MDM of this patient, discussed the same with the dictator, and agree with the dictator's assessment and plan as written ,documented as a scribe. Based on total visit time, I have performed more than 50% of the visit. Objective - Vital Signs Vital signs: Vital Signs Temp 98.1 F 02/11/23 07:42 Pulse 52 L 02/11/23 07:42 Resp 18 02/11/23 07:42 BP 150/78 02/11/23 07:42 Pulse Ox 98 02/11/23 07:42 FiO2 Intake & Output 06/05/23 06/06/23 06/06/23 18:59 06:59 18:59 Intake Total 180 Balance 180 Intake: Oral 180 Other: Voiding Method Toilet # Voids 6 1 1 # Bowel Movements 2 - Labs CBC & Chem 7: 02/05/23 15:30 02/05/23 15:30
[2023-02-12] MEDS: SODIUM CHLORIDE 0.9% 1,000 ML IV SCH ×2 (00:40→21:26)
[2023-02-12] MEDS: DONEPEZIL 10 MG TAB PO SCH ×2 (08:32→20:12)
[2023-02-12] MEDS: PANTOPRAZOLE 40 MG TABLET PO SCH (08:32)
[2023-02-12] MEDS: amLODIPine 10 MG TAB PO SCH (08:32)
[2023-02-12] MEDS: lisinopriL 5 MG TAB PO SCH (08:33)
[2023-02-12] MEDS: ENOXAPARIN 40 MG/0.4 ML SYRINGE SQ SCH (08:33)
[2023-02-12 09:26] LABS: African American GFR (CKD) 64 (>60 ml/min/1.73 sqM); Anion Gap 11 mmol/L; Blood Urea Nitrogen 18 mg/dL (7-17); Calcium 9.9 mg/dL (8.4-10.2); Carbon Dioxide 27 mmol/L (22-30); Chloride 96 mmol/L (98-107); Glucose 118 mg/dL (74-99); Non-African American GFR(CKD) 56 (>60 ml/min/1.73 sqM); Sodium 134 mmol/L (137-145)
[2023-02-12 09:53] LABS: Basophils % (A) 0 %; Eosinophils # (A) 0.1 k/uL (0-0.7); Eosinophils % (A) 1 %; HCT 44.6 % (34.0-46.0); HGB 15.1 gm/dL (11.4-16.0); Lymphocytes # (A) 1.6 k/uL (1.0-4.8); Lymphocytes % (A) 16 %; MCH 28.6 pg (25.0-35.0); MCHC 33.8 g/dL (31.0-37.0); MCV 84.7 fL (80.0-100.0); Mean Platelet Volume 8.2; Monocytes # (A) 0.7 k/uL (0-1.0); Monocytes % (A) 7 %; Neutrophils # (A) 7.7 k/uL (1.3-7.7); Neutrophils % (A) 76 %; Platelet Count 275 k/uL (150-450); RBC 5.26 m/uL (3.80-5.40); WBC 10.1 k/uL (3.8-10.6)
[2023-02-12] MEDS ORDERED: Potassium Replacement Protocol 1 EACH MISC MISCELLANE PRN (16:31)
--- NOTE | 2023-02-12 16:34 | P.PN ---
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 Basic labs are essentially within normal limits. No significant abnormality was evident on chest x-ray and CT of the head 02/07/2023 Pending PT/OT evauation and placement. Hemodynamically stable. Discharge planning in progress with social work. Patient is evaluated today up in the chair with staff at the bedside. Patient is alert x 1 and pleasant with no acute complaints. APS services is following the patient. 02/08/2023 Patient unable to be discharged to subacute rehab yesterday as patient is pending guardianship with APS following and will require ECF on discharge. Patient remains alert x 1, pleasant does have difficulty findings words this is baseline with advanced dementia at baseline. Patient is asking about her today. Patient has no complaints at this time. 02/09/2023 Patient has no acute complaints overnight. Patient has been up ambulating in the room and dressed in street clothes. Patient is asking about discharge. May require legal guardian and also APS following with ECF needed on discharge. Patient has advanced dementia at baseline. 02/10/2023 Patient currently with no acute complaints. Alert x 1 today and pleasant. Pending guardianship and placement currently. Follow up with social work. 02/11/2023 Patient is seen and evaluated in follow-up currently sitting up in bed with no reports of nausea or vomiting noted. Patient reports tolerating diet. Patient denies chest pain or shortness of breath and currently awaiting possible guardianship hearing on Friday. Social work is involved and has been working with arranging for AFC availability as well as APS. Patient continues to be at her baseline alert and oriented 1 and is pleasant and cooperative. Will follow-up with repeat labs in a.m. 02/12/2023 Patient is seen and evaluated in follow-up today patient reports being tired although easily arousable. Patient is pleasantly confused and at her baseline with dementia. Follow-up labs show a potassium of 3.0 and will replace per protocol and repeat labs in the a.m. Patient is afebrile denies chest pain or s hortness of breath. No reports of nausea or vomiting and patient is tolerating diet. Social work following along with APS and patient does have guardianship hearing on Friday. Review of Systems Constitutional: Reports feeling fatigued, denied any fever. Cardio vascular: denied any chest pain, palpitations Gastrointestinal: denied any nausea, vomiting, diarrhea Pulmonary: Denied any shortness of breath cough Neurologic denied any new focal deficits All inpatient medications were reviewed and appropriate changes in these medications as dictated in the interval history and assessment and plan. PHYSICAL EXAMINATION: GENERAL: The patient is alert and oriented x1. Lethargic although arousable. Well developed, well nourished. HEENT: Pupils are round and equally reacting to light. EOMI. No scleral icterus. No conjunctival pallor. Normocephalic, atraumatic. No pharyngeal erythema. No t hyromegaly. CARDIOVASCULAR: S1 and S2 present. No murmurs, rubs, or gallops. PULMONARY: Chest is clear to auscultation, no wheezing or crackles. ABDOMEN: Soft, nontender, nondistended, normoactive bowel sounds. No palpable organomegaly. MUSCULOSKELETAL: No joint swelling or deformity. EXTREMITIES: No cyanosis, clubbing, or pedal edema. NEUROLOGICAL: Gross neurological examination did not reveal any focal deficits. Limited neurological exam because of her advanced dementia SKIN: No rashes. Assessment: -Advanced dementia patient is presently not encephalopathic patient confusion is at her baseline. -Hypokalemia -Anxiety disorder -Hypertension -DVT prophylaxis: Lovenox -GI prophylaxis: Protonix -Full Code Plan: Patient will require ECF placement and social work is following. May also require legal guardian APS is following the patient. Plans for meeting with APS as well as working on other AFC options and patient does have guardianship hearing on Friday with social work following working on discharge planning Repeat labs this morning show a potassium of 3.0 and will replace per protocol and follow-up on repeat labs in a.m. Encouraged oral intake Patient is an elopement risk and at baseline alert and oriented 1 with advanced dementia Recommend continue current medication regimen Blood pressure improved and will continue current regimen Patient is medically stable for discharge pending DC planning with social work. Prognosis guarded The impression and plan of care has been dictated by Pepper Pablo, Nurse Practitioner as directed. Dr. Jimmy MD I have performed a history and examination and MDM of this patient, discussed the same with the dictator, and agree with the dictator's assessment and plan as written ,documented as a scribe. Based on total visit time, I have performed more than 50% of the visit. Objective - Vital Signs Vital signs: Vital Signs Temp 98.1 F 02/12/23 14:00 Pulse 68 02/12/23 14:00 Resp 16 02/12/23 14:00 BP 126/79 02/12/23 14:00 Pulse Ox 99 02/12/23 14:00 FiO2 Intake & Output 02/11/23 02/12/23 02/12/23 18:59 06:59 18:59 Intake Total 800 Balance 800 Weight 66.179 kg Intake: Oral 800 Other: # Voids 1 1 # Bowel Movements 1 - Labs CBC & Chem 7: 02/12/23 08:38 02/12/23 08:38 Labs: Abnormal Lab Results - Last 24 Hours (Table) 02/12/23 Range/Units 08:38 Sodium 134 L (137-145) mmol/L Potassium 3.0 L (3.5-5.1) mmol/L Chloride 96 L (98-107) mmol/L BUN 18 H (7-17) mg/dL Glucose 118 H (74-99) mg/dL
[2023-02-12] MEDS: POTASSIUM CHLORIDE ER 20 MEQ TAB.ER PO SCH ×2 (16:58→18:16)
[2023-02-12] MEDS: QUEtiapine 25 MG TAB PO PRN (21:32)
[2023-02-13] MEDS: DONEPEZIL 10 MG TAB PO SCH ×2 (07:51→21:26)
[2023-02-13] MEDS: PANTOPRAZOLE 40 MG TABLET PO SCH (07:51)
[2023-02-13] MEDS: ENOXAPARIN 40 MG/0.4 ML SYRINGE SQ SCH (07:51)
[2023-02-13] MEDS: lisinopriL 5 MG TAB PO SCH (07:52)
[2023-02-13] MEDS: amLODIPine 10 MG TAB PO SCH (07:52)
[2023-02-13] MEDS: QUEtiapine 25 MG TAB PO PRN (21:26)
--- NOTE | 2023-02-13 22:04 | P.PN ---
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 Basic labs are essentially within normal limits. No significant abnormality was evident on chest x-ray and CT of the head 02/07/2023 Pending PT/OT evauation and placement. Hemodynamically stable. Discharge planning in progress with social work. Patient is evaluated today up in the chair with staff at the bedside. Patient is alert x 1 and pleasant with no acute complaints. APS services is following the patient. 02/08/2023 Patient unable to be discharged to subacute rehab yesterday as patient is pending guardianship with APS following and will require ECF on discharge. Patient remains alert x 1, pleasant does have difficulty findings words this is baseline with advanced dementia at baseline. Patient is asking about her today. Patient has no complaints at this time. 02/09/2023 Patient has no acute complaints overnight. Patient has been up ambulating in the room and dressed in street clothes. Patient is asking about discharge. May require legal guardian and also APS following with ECF needed on discharge. Patient has advanced dementia at baseline. 02/10/2023 Patient currently with no acute complaints. Alert x 1 today and pleasant. Pending guardianship and placement currently. Follow up with social work. 02/11/2023 Patient is seen and evaluated in follow-up currently sitting up in bed with no reports of nausea or vomiting noted. Patient reports tolerating diet. Patient denies chest pain or shortness of breath and currently awaiting possible guardianship hearing on Friday. Social work is involved and has been working with arranging for [facility]FC availability as well as APS. Patient continues to be at her baseline alert and oriented 1 and is pleasant and cooperative. Will follow-up with repeat labs in a.m. 02/12/2023 Patient is seen and evaluated in follow-up today patient reports being tired although easily arousable. Patient is pleasantly confused and at her baseline with dementia. Follow-up labs show a potassium of 3.0 and will replace per protocol and repeat labs in the a.m. Patient is afebrile denies chest pain or s hortness of breath. No reports of nausea or vomiting and patient is tolerating diet. Social work following along with APS and patient does have guardianship hearing on Friday. 02/13/2023 Patient is seen and evaluated in follow-up no acute overnight issues noted. Patient has a court hearing tomorrow for guardianship with social work following closely. Plan is for patient to go to [facility] once guardianship hearing is settled. Patient is currently afebrile with no reports of chest pain or shortness of breath. Patient is tolerating diet and needs encouragement with oral intake. Review of Systems Constitutional: No reports of fatigue, denied any fever. Cardio vascular: denied any chest pain, palpitations Gastrointestinal: denied any nausea, vomiting, diarrhea Pulmonary: Denied any shortness of breath cough Neurologic denied any new focal deficits All inpatient medications were reviewed and appropriate changes in these medications as dictated in the interval history and assessment and plan. PHYSICAL EXAMINATION: GENERAL: The patient is alert and oriented x1. Lethargic although arousable. Well developed, well nourished. HEENT: Pupils are round and equally reacting to light. EOMI. No scleral icterus. No conjunctival pallor. Normocephalic, atraumatic. No pharyngeal erythema. No thyromegaly. CARDIOVASCULAR: S1 and S2 present. No murmurs, rubs, or gallops. PULMONARY: Chest is clear to auscultation, no wheezing or crackles. ABDOMEN: Soft, nontender, nondistended, normoactive bowel sounds. No palpable organomegaly. MUSCULOSKELETAL: No joint swelling or deformity. EXTREMITIES: No cyanosis, clubbing, or pedal edema. NEUROLOGICAL: Gross neurological examination did not reveal any focal deficits. Limited neurological exam because of her advanced dementia SKIN: No rashes. Assessment: -Advanced dementia patient is presently not encephalopathic patient confusion is at her baseline. -Hypokalemia, improved -Anxiety disorder -Hypertension -DVT prophylaxis: Lovenox -GI prophylaxis: Protonix -Full Code Plan: Patient will require ECF placement and social work is following. Court hearing scheduled for Friday for guardianship and then will discuss further with social work about discharge planning Encouraged oral intake Patient is an elopement risk and at baseline alert and oriented 1 with advanced dementia Recommend continue current medication regimen Blood pressure improved and will continue current regimen Patient is medically stable for discharge pending DC planning with social work. Prognosis guarded The impression and plan of care has been dictated by Pepper Pablo, Nurse Practitioner as directed. Dr. Jimmy MD I have performed a history and examination and MDM of this patient, discussed the same with the dictator, and agree with the dictator's assessment and plan as written ,documented as a scribe. Based on total visit time, I have performed more than 50% of the visit. Objective - Vital Signs Vital signs: Vital Signs Temp 98.1 F 02/13/23 20:00 Pulse 65 02/13/23 20:00 Resp 16 02/13/23 20:00 BP 148/90 02/13/23 20:00 Pulse Ox 99 02/13/23 20:00 FiO2 Intake & Output 02/13/23 02/13/23 02/14/23 06:59 18:59 06:59 Other: Voiding Method Toilet # Voids 2 - Labs CBC & Chem 7: 02/12/23 08:38 02/13/23 06:35
[2023-02-14] MEDS: PANTOPRAZOLE 40 MG TABLET PO SCH (05:38)
[2023-02-14] MEDS: SODIUM CHLORIDE 0.9% 1,000 ML IV SCH (08:40)
[2023-02-14] MEDS: DONEPEZIL 10 MG TAB PO SCH ×2 (09:28→20:37)
[2023-02-14] MEDS: ENOXAPARIN 40 MG/0.4 ML SYRINGE SQ SCH (09:28)
[2023-02-14] MEDS: amLODIPine 10 MG TAB PO SCH (09:28)
[2023-02-14] MEDS: lisinopriL 5 MG TAB PO SCH (09:28)
--- NOTE | 2023-02-14 15:57 | P.PN ---
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 Basic labs are essentially within normal limits. No significant abnormality was evident on chest x-ray and CT of the head 02/07/2023 Pending PT/OT evauation and placement. Hemodynamically stable. Discharge planning in progress with social work. Patient is evaluated today up in the chair with staff at the bedside. Patient is alert x 1 and pleasant with no acute complaints. APS services is following the patient. 02/08/2023 Patient unable to be discharged to subacute rehab yesterday as patient is pending guardianship with APS following and will require ECF on discharge. Patient remains alert x 1, pleasant does have difficulty findings words this is baseline with advanced dementia at baseline. Patient is asking about her today. Patient has no complaints at this time. 02/09/2023 Patient has no acute complaints overnight. Patient has been up ambulating in the room and dressed in street clothes. Patient is asking about discharge. May require legal guardian and also APS following with ECF needed on discharge. Patient has advanced dementia at baseline. 02/10/2023 Patient currently with no acute complaints. Alert x 1 today and pleasant. Pending guardianship and placement currently. Follow up with social work. 02/11/2023 Patient is seen and evaluated in follow-up currently sitting up in bed with no reports of nausea or vomiting noted. Patient reports tolerating diet. Patient denies chest pain or shortness of breath and currently awaiting possible guardianship hearing on Friday. Social work is involved and has been working with arranging for [facility] availability as well as APS. Patient continues to be at her baseline alert and oriented 1 and is pleasant and cooperative. Will follow-up with repeat labs in a.m. 02/12/2023 Patient is seen and evaluated in follow-up today patient reports being tired although easily arousable. Patient is pleasantly confused and at her baseline with dementia. Follow-up labs show a potassium of 3.0 and will replace per protocol and repeat labs in the a.m. Patient is afebrile denies chest pain or s hortness of breath. No reports of nausea or vomiting and patient is tolerating diet. Social work following along with APS and patient does have guardianship hearing on Friday. 02/13/2023 Patient is seen and evaluated in follow-up no acute overnight issues noted. Patient has a court hearing tomorrow for guardianship with social work following closely. Plan is for patient to go to [facility] once guardianship hearing is settled. Patient is currently afebrile with no reports of chest pain or shortness of breath. Patient is tolerating diet and needs encouragement with oral intake. 02/14/2023 Patient is seen and evaluated in follow-up today currently awaiting a court hearing with social work today for guardianship. APS and social work following closely working on possible [facility] for safe discharge planning. Patient is tolerating oral intake needs encouragement she eats very little with no reports of nausea or vomiting noted. Patient denies any chest pain or shortness of breath. Patient has been up and walking to the bathroom independently with no difficulties. Currently awaiting on possible [facility] and will await court hearing to determine guardianship. Review of Systems Constitutional: No reports of fatigue, denied any fever. Cardio vascular: denied any chest pain, palpitations Gastrointestinal: denied any nausea, vomiting, diarrhea Pulmonary: Denied any shortness of breath cough Neurologic denied any new focal deficits All inpatient medications were reviewed and appropriate changes in these medications as dictated in the interval history and assessment and plan. PHYSICAL EXAMINATION: GENERAL: The patient is alert and oriented x1. Lethargic although arousable. Well developed, well nourished. HEENT: Pupils are round and equally reacting to light. EOMI. No scleral icterus. No conjunctival pallor. Normocephalic, atraumatic. No pharyngeal erythema. No thyromegaly. CARDIOVASCULAR: S1 and S2 present. No murmurs, rubs, or gallops. PULMONARY: Chest is clear to auscultation, no wheezing or crackles. ABDOMEN: Soft, nontender, nondistended, normoactive bowel sounds. No palpable organomegaly. MUSCULOSKELETAL: No joint swelling or deformity. EXTREMITIES: No cyanosis, clubbing, or pedal edema. NEUROLOGICAL: Gross neurological examination did not reveal any focal deficits. Limited neurological exam because of her advanced dementia SKIN: No rashes. Assessment: -Advanced dementia patient is presently not encephalopathic patient confusion is at her baseline. -Hypokalemia, improved -Anxiety disorder -Hypertension -DVT prophylaxis: Lovenox -GI prophylaxis: Protonix -Full Code Plan: Patient will require ECF or [facility] and social work is following. Social work with plans for court hearing this afternoon at 1:30 PM and will await court appointed guardianship and move forward with APS along with social work on safe discharge planning Encouraged oral intake Patient is an elopement risk and at baseline alert and oriented 1 with advanced dementia Recommend continue current medication regimen Blood pressure improved and will continue current regimen Patient is medically stable for discharge pending DC planning with social work And guardianship. Prognosis guarded The impression and plan of care has been dictated by Pepper Pablo, Nurse Practitioner as directed. Dr. Eloisa MD I have performed a history and examination and MDM of this patient, discussed the same with the dictator, and agree with the dictator's assessment and plan as written ,documented as a scribe. Based on total visit time, I have performed more than 50% of the visit. Objective - Vital Signs Vital signs: Vital Signs Temp 98.1 F 02/14/23 07:03 Pulse 68 02/14/23 07:03 Resp 16 02/14/23 07:03 BP 151/84 02/14/23 07:03 Pulse Ox 98 02/14/23 07:03 FiO2 Intake & Output 02/13/23 02/14/23 02/14/23 18:59 06:59 18:59 Other: Voiding Method Toilet Toilet # Voids 2 - Labs CBC & Chem 7: 02/12/23 08:38 02/13/23 06:35
[2023-02-14] MEDS: QUEtiapine 25 MG TAB PO PRN (20:37)
[2023-02-15] MEDS: PANTOPRAZOLE 40 MG TABLET PO SCH (06:40)
[2023-02-15] MEDS: DONEPEZIL 10 MG TAB PO SCH ×2 (08:01→20:24)
[2023-02-15] MEDS: lisinopriL 5 MG TAB PO SCH (08:01)
[2023-02-15] MEDS: ENOXAPARIN 40 MG/0.4 ML SYRINGE SQ SCH (08:01)
[2023-02-15] MEDS: amLODIPine 10 MG TAB PO SCH (08:01)
[2023-02-15] MEDS: QUEtiapine 25 MG TAB PO PRN (20:24)
[2023-02-16] MEDS: PANTOPRAZOLE 40 MG TABLET PO SCH (06:48)
[2023-02-16] MEDS ORDERED: diphenhydrAMINE 25 MG CAP PO STA (08:35)
[2023-02-16] MEDS: SODIUM CHLORIDE 0.9% 1,000 ML IV SCH (08:46)
[2023-02-16] MEDS: amLODIPine 10 MG TAB PO SCH (08:50)
[2023-02-16] MEDS: lisinopriL 5 MG TAB PO SCH (08:50)
[2023-02-16] MEDS: DONEPEZIL 10 MG TAB PO SCH ×2 (08:50→20:53)
[2023-02-16] MEDS: ENOXAPARIN 40 MG/0.4 ML SYRINGE SQ SCH (08:50)
[2023-02-16 12:38] LABS: Potassium 3.3 mmol/L (3.5-5.1)
[2023-02-16 12:39] LABS: African American GFR (CKD) 78 (>60 ml/min/1.73 sqM); Anion Gap 8 mmol/L; Blood Urea Nitrogen 10 mg/dL (7-17); Calcium 9.2 mg/dL (8.4-10.2); Carbon Dioxide 27 mmol/L (22-30); Chloride 96 mmol/L (98-107); Glucose 96 mg/dL (74-99); Non-African American GFR(CKD) 67 (>60 ml/min/1.73 sqM); Sodium 131 mmol/L (137-145)
[2023-02-16] MEDS: FAMOTIDINE 20 MG TAB PO SCH ×2 (15:52→20:53)
[2023-02-16] MEDS: predniSONE 50 MG TAB PO SCH (15:52)
[2023-02-16] MEDS: QUEtiapine 25 MG TAB PO PRN (20:53)
--- NOTE | 2023-02-16 22:11 | P.PN ---
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 Basic labs are essentially within normal limits. No significant abnormality was evident on chest x-ray and CT of the head 02/07/2023 Pending PT/OT evauation and placement. Hemodynamically stable. Discharge planning in progress with social work. Patient is evaluated today up in the chair with staff at the bedside. Patient is alert x 1 and pleasant with no acute complaints. APS services is following the patient. 02/08/2023 Patient unable to be discharged to subacute rehab yesterday as patient is pending guardianship with APS following and will require ECF on discharge. Patient remains alert x 1, pleasant does have difficulty findings words this is baseline with advanced dementia at baseline. Patient is asking about her today. Patient has no complaints at this time. 02/09/2023 Patient has no acute complaints overnight. Patient has been up ambulating in the room and dressed in street clothes. Patient is asking about discharge. May require legal guardian and also APS following with ECF needed on discharge. Patient has advanced dementia at baseline. 02/10/2023 Patient currently with no acute complaints. Alert x 1 today and pleasant. Pending guardianship and placement currently. Follow up with social work. 02/11/2023 Patient is seen and evaluated in follow-up currently sitting up in bed with no reports of nausea or vomiting noted. Patient reports tolerating diet. Patient denies chest pain or shortness of breath and currently awaiting possible guardianship hearing on Friday. Social work is involved and has been working with arranging for AFC availability as well as APS. Patient continues to be at her baseline alert and oriented 1 and is pleasant and cooperative. Will follow-up with repeat labs in a.m. 02/12/2023 Patient is seen and evaluated in follow-up today patient reports being tired although easily arousable. Patient is pleasantly confused and at her baseline with dementia. Follow-up labs show a potassium of 3.0 and will replace per protocol and repeat labs in the a.m. Patient is afebrile denies chest pain or shortness of breath. No reports of nausea or vomiting and patient is tolerating diet. Social work following along with APS and patient does have guardianship hearing on Friday. 02/13/2023 Patient is seen and evaluated in follow-up no acute overnight issues noted. Patient has a court hearing tomorrow for guardianship with social work following closely. Plan is for patient to go to [facility] once guardianship hearing is settled. Patient is currently afebrile with no reports of chest pain or shortness of breath. Patient is tolerating diet and needs encouragement with oral intake. 02/14/2023 Patient is seen and evaluated in follow-up today currently awaiting a court hearing with social work today for guardianship. APS and social work following closely working on possible [facility] for safe discharge planning. Patient is tolerating oral intake needs encouragement she eats very little with no reports of nausea or vomiting noted. Patient denies any chest pain or shortness of breath. Patient has been up and walking to the bathroom independently with no difficulties. Currently awaiting on possible A[facility] and will await court hearing to determine guardianship. 02/15/2023 Patient is currently lying in the bed. Awake alert but still confused. Able to walk to the bathroom. Denies any complaints of nausea vomiting or diarrhea. No complaints of chest pain or shortness of breath. Patient is awaiting court hearing for guardianship. blood pressure is controlled. No complaints of headache or dizziness or lightheadedness. Laboratory data reviewed. Current medications reviewed. Review of Systems Constitutional: No reports of fatigue, denied any fever. Cardio vascular: denied any chest pain, palpitations Gastrointestinal: denied any nausea, vomiting, diarrhea Pulmonary: Denied any shortness of breath cough Neurologic denied any new focal deficits All inpatient medications were reviewed and appropriate changes in these medications as dictated in the interval history and assessment and plan. PHYSICAL EXAMINATION: GENERAL: The patient is alert and oriented x1. Lethargic although arousable. Well developed, well nourished. HEENT: Pupils are round and equally reacting to light. EOMI. No scleral icterus. No conjunctival pallor. Normocephalic, atraumatic. No pharyngeal erythema. No thyromegaly. CARDIOVASCULAR: S1 and S2 present. No murmurs, rubs, or gallops. PULMONARY: Chest is clear to auscultation, no wheezing or crackles. ABDOMEN: Soft, nontender, nondistended, normoactive bowel sounds. No palpable organomegaly. MUSCULOSKELETAL: No joint swelling or deformity. EXTREMITIES: No cyanosis, clubbing, or pedal edema. NEUROLOGICAL: Gross neurological examination did not reveal any focal deficits. Limited neurological exam because of her advanced dementia SKIN: No rashes. Assessment: -Advanced dementia patient is presently not encephalopathic patient confusion is at her baseline. -Hypokalemia, improved -Anxiety disorder -Hypertension -DVT prophylaxis: Lovenox -GI prophylaxis: Protonix -Full Code Plan: Patient will require ECF or [facility] and social work is following. Social work with plans for court hearing this afternoon at 1:30 PM and will await court appointed guardianship and move forward with APS along with social work on safe discharge planning Encouraged oral intake Patient is an elopement risk and at baseline alert and oriented 1 with advanced dementia Recommend continue current medication regimen Blood pressure improved and will continue current regimen Patient is medically stable for discharge pending DC planning with social work And guardianship. Prognosis guarded Objective - Vital Signs Vital signs: Vital Signs Temp 97.8 F 02/15/23 13:30 Pulse 55 L 02/15/23 13:30 Resp 17 02/15/23 20:00 BP 128/66 02/15/23 13:30 Pulse Ox 99 02/15/23 13:30 FiO2 Intake & Output 02/15/23 02/15/23 02/16/23 06:59 18:59 06:59 Intake Total 500 Balance 500 Intake: Oral 500 Other: Voiding Method Toilet Toilet # Voids 2 8 - Labs CBC & Chem 7: 02/12/23 08:38 02/16/23 11:44
--- NOTE | 2023-02-16 22:15 | P.PN ---
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 Basic labs are essentially within normal limits. No significant abnormality was evident on chest x-ray and CT of the head 02/07/2023 Pending PT/OT evauation and placement. Hemodynamically stable. Discharge planning in progress with social work. Patient is evaluated today up in the chair with staff at the bedside. Patient is alert x 1 and pleasant with no acute complaints. APS services is following the patient. 02/08/2023 Patient unable to be discharged to subacute rehab yesterday as patient is pending guardianship with APS following and will require ECF on discharge. Patient remains alert x 1, pleasant does have difficulty findings words this is baseline with advanced dementia at baseline. Patient is asking about her today. Patient has no complaints at this time. 02/09/2023 Patient has no acute complaints overnight. Patient has been up ambulating in the room and dressed in street clothes. Patient is asking about discharge. May require legal guardian and also APS following with ECF needed on discharge. Patient has advanced dementia at baseline. 02/10/2023 Patient currently with no acute complaints. Alert x 1 today and pleasant. Pending guardianship and placement currently. Follow up with social work. 02/11/2023 Patient is seen and evaluated in follow-up currently sitting up in bed with no reports of nausea or vomiting noted. Patient reports tolerating diet. Patient denies chest pain or shortness of breath and currently awaiting possible guardianship hearing on Friday. Social work is involved and has been working with arranging for AFC availability as well as APS. Patient continues to be at her baseline alert and oriented 1 and is pleasant and cooperative. Will follow-up with repeat labs in a.m. 02/12/2023 Patient is seen and evaluated in follow-up today patient reports being tired although easily arousable. Patient is pleasantly confused and at her baseline with dementia. Follow-up labs show a potassium of 3.0 and will replace per protocol and repeat labs in the a.m. Patient is afebrile denies chest pain or shortness of breath. No reports of nausea or vomiting and patient is tolerating diet. Social work following along with APS and patient does have guardianship hearing on Friday. 02/13/2023 Patient is seen and evaluated in follow-up no acute overnight issues noted. Patient has a court hearing tomorrow for guardianship with social work following closely. Plan is for patient to go to AFC once guardianship hearing is settled. Patient is currently afebrile with no reports of chest pain or shortness of breath. Patient is tolerating diet and needs encouragement with oral intake. 02/14/2023 Patient is seen and evaluated in follow-up today currently awaiting a court hearing with social work today for guardianship. APS and social work following closely working on possible AFC for safe discharge planning. Patient is tolerating oral intake needs encouragement she eats very little with no reports of nausea or vomiting noted. Patient denies any chest pain or shortness of breath. Patient has been up and walking to the bathroom independently with no difficulties. Currently awaiting on possible AFC and will await court hearing to determine guardianship. 02/15/2023 Patient is currently lying in the bed. Awake alert but still confused. Able to walk to the bathroom. Denies any complaints of nausea vomiting or diarrhea. No complaints of chest pain or shortness of breath. Patient is awaiting court hearing for guardianship. blood pressure is controlled. No complaints of headache or dizziness or lightheadedness. Laboratory data reviewed. 02/16/2023 Patient is currently lying in the bed. Awake alert but confused. Mental status at baseline. Patient developed lip swelling overnight with redness extending to the face bilaterally. Denies any complaints of shortness of breath. No difficulty swallowing. No nausea vomiting or abdominal pain or diarrhea. Lisinopril is on hold. Patient is not on lisinopril at home. Continue with amlodipine 10 mg daily. Laboratory showed sodium 131 potassium 3.3 chloride 96 bicarb is 27 BUN 10 and creatinine 0.87 and calcium 9.2. Current medications reviewed. Review of Systems Constitutional: No reports of fatigue, denied any fever. Cardio vascular: denied any chest pain, palpitations Gastrointestinal: denied any nausea, vomiting, diarrhea Pulmonary: Denied any shortness of breath cough Neurologic denied any new focal deficits All inpatient medications were reviewed and appropriate changes in these medications as dictated in the interval history and assessment and plan. PHYSICAL EXAMINATION: GENERAL: The patient is alert and oriented x1. Lethargic although arousable. Well developed, well nourished. HEENT: Pupils are round and equally reacting to light. EOMI. No scleral icterus. No conjunctival pallor. Normocephalic, atraumatic. No pharyngeal erythema. No thyromegaly. CARDIOVASCULAR: S1 and S2 present. No murmurs, rubs, or gallops. PULMONARY: Chest is clear to auscultation, no wheezing or crackles. ABDOMEN: Soft, nontender, nondistended, normoactive bowel sounds. No palpable organomegaly. MUSCULOSKELETAL: No joint swelling or deformity. EXTREMITIES: No cyanosis, clubbing, or pedal edema. NEUROLOGICAL: Gross neurological examination did not reveal any focal deficits. Limited neurological exam because of her advanced dementia SKIN: No rashes. Assessment: -Angioedema. Patient developed lip swelling overnight. Lisinopril is on hold. -Advanced dementia patient is presently not encephalopathic patient confusion is at her baseline. -Hypokalemia, improved -Anxiety disorder -Hypertension -DVT prophylaxis: Lovenox -GI prophylaxis: Protonix -Full Code Plan: Lisinopril is on hold possible drug reaction. Medication added to allergy list. Patient does not have any IV access currently. Started on prednisone 50 mg daily and Pepcid and Benadryl. No difficulty swallowing or shortness of breath. Follow-up closely. Patient will require ECF or AFC and social work is following. Social work with plans for court hearing this afternoon at 1:30 PM and will await court appointed guardianship and move forward with APS along with social work on safe discharge planning Encouraged oral intake Patient is an elopement risk and at baseline alert and oriented 1 with advanced dementia Recommend continue current medication regimen Blood pressure improved and will continue current regimen Patient is medically stable for discharge pending DC planning with social work And guardianship. Prognosis guarded Objective - Vital Signs Vital signs: Vital Signs Temp 98.1 F 02/16/23 07:57 Pulse 57 L 02/16/23 08:50 Resp 17 02/16/23 08:50 BP 122/79 02/16/23 07:57 Pulse Ox 98 02/16/23 07:57 FiO2 Intake & Output 02/15/23 02/16/23 02/16/23 18:59 06:59 18:59 Other: Voiding Method Toilet Toilet # Voids 8 2 3 - Labs CBC & Chem 7: 02/12/23 08:38 02/16/23 11:44 Labs: Abnormal Lab Results - Last 24 Hours (Table) 02/16/23 Range/Units 11:44 Sodium 131 L (137-145) mmol/L Potassium 3.3 L (3.5-5.1) mmol/L Chloride 96 L (98-107) mmol/L
[2023-02-17 07:11] LABS: Basophils % (A) 0 %; Eosinophils % (A) 0 %; HCT 42.3 % (34.0-46.0); HGB 14.6 gm/dL (11.4-16.0); Lymphocytes # (A) 1.1 k/uL (1.0-4.8); Lymphocytes % (A) 12 %; MCH 29.3 pg (25.0-35.0); MCHC 34.5 g/dL (31.0-37.0); MCV 84.8 fL (80.0-100.0); Mean Platelet Volume 8.4; Monocytes # (A) 0.5 k/uL (0-1.0); Monocytes % (A) 5 %; Neutrophils # (A) 7.9 k/uL (1.3-7.7); Neutrophils % (A) 82 %; Platelet Count 266 k/uL (150-450); RBC 4.99 m/uL (3.80-5.40); RDW 12.6 % (11.5-15.5); WBC 9.7 k/uL (3.8-10.6)
[2023-02-17 08:28] LABS: African American GFR (CKD) 69 (>60 ml/min/1.73 sqM); Anion Gap 12 mmol/L; Blood Urea Nitrogen 11 mg/dL (7-17); Carbon Dioxide 24 mmol/L (22-30); Chloride 93 mmol/L (98-107); Glucose 105 mg/dL (74-99); Non-African American GFR(CKD) 60 (>60 ml/min/1.73 sqM); Potassium 3.7 mmol/L (3.5-5.1); Sodium 129 mmol/L (137-145)
[2023-02-17] MEDS: ENOXAPARIN 40 MG/0.4 ML SYRINGE SQ SCH (08:36)
[2023-02-17] MEDS: amLODIPine 10 MG TAB PO SCH (08:36)
[2023-02-17] MEDS: FAMOTIDINE 20 MG TAB PO SCH (08:36)
[2023-02-17] MEDS: DONEPEZIL 10 MG TAB PO SCH ×2 (08:36→20:06)
[2023-02-17] MEDS: predniSONE 50 MG TAB PO SCH (08:36)
[2023-02-17] MEDS: SODIUM CHLORIDE 0.9% 1,000 ML IV SCH (08:39)
[2023-02-17] MEDS ORDERED: SODIUM CHLORIDE TAB 1 GM TAB PO STA (09:36)
[2023-02-17] MEDS: ALPRAZolam 0.25 MG TAB PO PRN (16:07)
[2023-02-17] MEDS: diphenhydrAMINE 25 MG CAP PO PRN (16:34)
[2023-02-18] MEDS: SODIUM CHLORIDE 0.9% 1,000 ML IV SCH ×2 (03:40→23:18)
[2023-02-18] MEDS ORDERED: SODIUM CHLORIDE TAB 1 GM TAB PO STA (05:46)
--- NOTE | 2023-02-18 05:46 | P.PN ---
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 Basic labs are essentially within normal limits. No significant abnormality was evident on chest x-ray and CT of the head 02/07/2023 Pending PT/OT evauation and placement. Hemodynamically stable. Discharge planning in progress with social work. Patient is evaluated today up in the chair with staff at the bedside. Patient is alert x 1 and pleasant with no acute complaints. APS services is following the patient. 02/08/2023 Patient unable to be discharged to subacute rehab yesterday as patient is pending guardianship with APS following and will require ECF on discharge. Patient remains alert x 1, pleasant does have difficulty findings words this is baseline with advanced dementia at baseline. Patient is asking about her today. Patient has no complaints at this time. 02/09/2023 Patient has no acute complaints overnight. Patient has been up ambulating in the room and dressed in street clothes. Patient is asking about discharge. May require legal guardian and also APS following with ECF needed on discharge. Patient has advanced dementia at baseline. 02/10/2023 Patient currently with no acute complaints. Alert x 1 today and pleasant. Pending guardianship and placement currently. Follow up with social work. 02/11/2023 Patient is seen and evaluated in follow-up currently sitting up in bed with no reports of nausea or vomiting noted. Patient reports tolerating diet. Patient denies chest pain or shortness of breath and currently awaiting possible guardianship hearing on Friday. Social work is involved and has been working with arranging for AFC availability as well as APS. Patient continues to be at her baseline alert and oriented 1 and is pleasant and cooperative. Will follow-up with repeat labs in a.m. 02/12/2023 Patient is seen and evaluated in follow-up today patient reports being tired although easily arousable. Patient is pleasantly confused and at her baseline with dementia. Follow-up labs show a potassium of 3.0 and will replace per protocol and repeat labs in the a.m. Patient is afebrile denies chest pain or s hortness of breath. No reports of nausea or vomiting and patient is tolerating diet. Social work following along with APS and patient does have guardianship hearing on Friday. 02/13/2023 Patient is seen and evaluated in follow-up no acute overnight issues noted. Patient has a court hearing tomorrow for guardianship with social work following closely. Plan is for patient to go to AFC once guardianship hearing is settled. Patient is currently afebrile with no reports of chest pain or shortness of breath. Patient is tolerating diet and needs encouragement with oral intake. 02/14/2023 Patient is seen and evaluated in follow-up today currently awaiting a court hearing with social work today for guardianship. APS and social work following closely working on possible AFC for safe discharge planning. Patient is tolerating oral intake needs encouragement she eats very little with no reports of nausea or vomiting noted. Patient denies any chest pain or shortness of breath. Patient has been up and walking to the bathroom independently with no difficulties. Currently awaiting on possible AFC and will await court hearing to determine guardianship. 02/15/2023 Patient is currently lying in the bed. Awake alert but still confused. Able to walk to the bathroom. Denies any complaints of nausea vomiting or diarrhea. No complaints of chest pain or shortness of breath. Patient is awaiting court hearing for guardianship. blood pressure is controlled. No complaints of headache or dizziness or lightheadedness. Laboratory data reviewed. 02/16/2023 Patient is currently lying in the bed. Awake alert but confused. Mental status at baseline. Patient developed lip swelling overnight with redness extending to the face bilaterally. Denies any complaints of shortness of breath. No difficulty swallowing. No nausea vomiting or abdominal pain or diarrhea. Lisinopril is on hold. Patient is not on lisinopril at home. Continue with amlodipine 10 mg daily. Laboratory showed sodium 131 potassium 3.3 chloride 96 bicarb is 27 BUN 10 and creatinine 0.87 and calcium 9.2. 02/17/2023 Patient is seen in follow-up and reports no acute overnight issues. Patient maintained on steroids and lisinopril has been discontinued. Swelling of the face has improved although discontinuous redness. Patient reports she is not using anything other than lipstick Chapstick that she always uses. Patient reports to eating with no difficulties although needs encouragement and patient has been drinking excessive amounts of water per nursing staff. Recommend fluid restrictions and close monitoring. Sodium slightly lower at 129 and will follow-up with repeat labs. Patient is afebrile denies chest pain or palpitations. Patient denies shortness of breath and vital signs have been stable. Review of Systems Constitutional: No reports of fatigue, denied any fever. Cardio vascular: denied any chest pain, palpitations Gastrointestinal: denied any nausea, vomiting, diarrhea Pulmonary: Denied any shortness of breath cough Neurologic denied any new focal deficits All inpatient medications were reviewed and appropriate changes in these medications as dictated in the interval history and assessment and plan. PHYSICAL EXAMINATION: GENERAL: The patient is alert and oriented x1. Awake, calm, cooperative. Well developed, well nourished. HEENT: Pupils are round and equally reacting to light. EOMI. No scleral icterus. No conjunctival pallor. Normocephalic, atraumatic. No pharyngeal erythema. No thyromegaly. CARDIOVASCULAR: S1 and S2 present. No murmurs, rubs, or gallops. PULMONARY: Chest is clear to auscultation, no wheezing or crackles. ABDOMEN: Soft, nontender, nondistended, normoactive bowel sounds. No palpable organomegaly. MUSCULOSKELETAL: No joint swelling or deformity. EXTREMITIES: No cyanosis, clubbing, or pedal edema. NEUROLOGICAL: Gross neurological examination did not reveal any focal deficits. Limited neurological exam because of her advanced dementia SKIN: No rashes. Mild redness noted of the face Assessment: -Angioedema. Patient developed lip swelling overnight. Lisinopril is on hold. -Advanced dementia patient is presently not encephalopathic patient confusion is at her baseline. -Hypokalemia, improved -Hyponatremia, secondary to poor oral intake possible component of excessive water intake -Anxiety disorder -Hypertension -DVT prophylaxis: Lovenox -GI prophylaxis: Protonix -Full Code Plan: Lisinopril is on hold possible drug reaction. Medication added to allergy list. Patient does not have any IV access currently. Started on prednisone 50 mg daily and Pepcid and Benadryl. No difficulty swallowing or shortness of breath. We'll decrease the dose of prednisone and continue to monitor closely Social work continues to follow and has received a guardian currently awaiting correction of AFC or ECF and working on discharge planning Encouraged oral intake Patient is an elopement risk and at baseline alert and oriented 1 with advanced dementia Recommend continue current medication regimen Patient is medically stable for discharge pending DC planning with social work Prognosis guarded The impression and plan of care has been dictated by Pepper Pablo, Nurse Practitioner as directed. Dr. Eloisa MD I have performed a history and examination and MDM of this patient, discussed the same with the dictator, and agree with the dictator's assessment and plan as written ,documented as a scribe. Based on total visit time, I have performed more than 50% of the visit. Objective - Vital Signs Vital signs: Vital Signs Temp 98.0 F 02/17/23 06:57 Pulse 46 L 02/17/23 06:57 Resp 17 02/17/23 06:57 BP 117/69 02/17/23 06:57 Pulse Ox 98 02/17/23 06:57 FiO2 Intake & Output 02/16/23 02/17/23 02/17/23 18:59 06:59 18:59 Other: Voiding Method Toilet Toilet # Voids 3 1 - Labs CBC & Chem 7: 02/17/23 06:38 02/17/23 06:38 Labs: Abnormal Lab Results - Last 24 Hours (Table) 02/16/23 02/17/23 02/17/23 Range/Units 11:44 06:38 06:38 Neutrophils # 7.9 H (1.3-7.7) k/uL Sodium 131 L 129 L (137-145) mmol/L Potassium 3.3 L (3.5-5.1) mmol/L Chloride 96 L 93 L (98-107) mmol/L Glucose 105 H (74-99) mg/dL
[2023-02-18 08:31] LABS: African American GFR (CKD) 75 (>60 ml/min/1.73 sqM); Anion Gap 8 mmol/L; Blood Urea Nitrogen 14 mg/dL (7-17); Calcium 9.5 mg/dL (8.4-10.2); Carbon Dioxide 28 mmol/L (22-30); Chloride 97 mmol/L (98-107); Glucose 91 mg/dL (74-99); Non-African American GFR(CKD) 65 (>60 ml/min/1.73 sqM); Potassium 3.2 mmol/L (3.5-5.1); Sodium 133 mmol/L (137-145)
[2023-02-18] MEDS: ENOXAPARIN 40 MG/0.4 ML SYRINGE SQ SCH (08:31)
[2023-02-18] MEDS: predniSONE 20 MG TAB PO SCH (08:32)
[2023-02-18] MEDS: FAMOTIDINE 20 MG TAB PO SCH (08:32)
[2023-02-18] MEDS: amLODIPine 10 MG TAB PO SCH (08:32)
[2023-02-18] MEDS: DONEPEZIL 10 MG TAB PO SCH ×2 (08:32→20:32)
[2023-02-18] MEDS ORDERED: Potassium Replacement Protocol 1 EACH MISC MISCELLANE PRN (09:10)
[2023-02-18] MEDS: POTASSIUM CHLORIDE ER 20 MEQ TAB.ER PO SCH ×3 (10:06→12:15)
--- NOTE | 2023-02-18 20:15 | P.PN ---
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 Basic labs are essentially within normal limits. No significant abnormality was evident on chest x-ray and CT of the head 02/07/2023 Pending PT/OT evauation and placement. Hemodynamically stable. Discharge planning in progress with social work. Patient is evaluated today up in the chair with staff at the bedside. Patient is alert x 1 and pleasant with no acute complaints. APS services is following the patient. 02/08/2023 Patient unable to be discharged to subacute rehab yesterday as patient is pending guardianship with APS following and will require ECF on discharge. Patient remains alert x 1, pleasant does have difficulty findings words this is baseline with advanced dementia at baseline. Patient is asking about her today. Patient has no complaints at this time. 02/09/2023 Patient has no acute complaints overnight. Patient has been up ambulating in the room and dressed in street clothes. Patient is asking about discharge. May require legal guardian and also APS following with ECF needed on discharge. Patient has advanced dementia at baseline. 02/10/2023 Patient currently with no acute complaints. Alert x 1 today and pleasant. Pending guardianship and placement currently. Follow up with social work. 02/11/2023 Patient is seen and evaluated in follow-up currently sitting up in bed with no reports of nausea or vomiting noted. Patient reports tolerating diet. Patient denies chest pain or shortness of breath and currently awaiting possible guardianship hearing on Friday. Social work is involved and has been working with arranging for AFC availability as well as APS. Patient continues to be at her baseline alert and oriented 1 and is pleasant and cooperative. Will follow-up with repeat labs in a.m. 02/12/2023 Patient is seen and evaluated in follow-up today patient reports being tired although easily arousable. Patient is pleasantly confused and at her baseline with dementia. Follow-up labs show a potassium of 3.0 and will replace per protocol and repeat labs in the a.m. Patient is afebrile denies chest pain or s hortness of breath. No reports of nausea or vomiting and patient is tolerating diet. Social work following along with APS and patient does have guardianship hearing on Friday. 02/13/2023 Patient is seen and evaluated in follow-up no acute overnight issues noted. Patient has a court hearing tomorrow for guardianship with social work following closely. Plan is for patient to go to AFC once guardianship hearing is settled. Patient is currently afebrile with no reports of chest pain or shortness of breath. Patient is tolerating diet and needs encouragement with oral intake. 02/14/2023 Patient is seen and evaluated in follow-up today currently awaiting a court hearing with social work today for guardianship. APS and social work following closely working on possible AFC for safe discharge planning. Patient is tolerating oral intake needs encouragement she eats very little with no reports of nausea or vomiting noted. Patient denies any chest pain or shortness of breath. Patient has been up and walking to the bathroom independently with no difficulties. Currently awaiting on possible AFC and will await court hearing to determine guardianship. 02/15/2023 Patient is currently lying in the bed. Awake alert but still confused. Able to walk to the bathroom. Denies any complaints of nausea vomiting or diarrhea. No complaints of chest pain or shortness of breath. Patient is awaiting court hearing for guardianship. blood pressure is controlled. No complaints of headache or dizziness or lightheadedness. Laboratory data reviewed. 02/16/2023 Patient is currently lying in the bed. Awake alert but confused. Mental status at baseline. Patient developed lip swelling overnight with redness extending to the face bilaterally. Denies any complaints of shortness of breath. No difficulty swallowing. No nausea vomiting or abdominal pain or diarrhea. Lisinopril is on hold. Patient is not on lisinopril at home. Continue with amlodipine 10 mg daily. Laboratory showed sodium 131 potassium 3.3 chloride 96 bicarb is 27 BUN 10 and creatinine 0.87 and calcium 9.2. 02/17/2023 Patient is seen in follow-up and reports no acute overnight issues. Patient maintained on steroids and lisinopril has been discontinued. Swelling of the face has improved although discontinuous redness. Patient reports she is not using anything other than lipstick Chapstick that she always uses. Patient reports to eating with no difficulties although needs encouragement and patient has been drinking excessive amounts of water per nursing staff. Recommend fluid restrictions and close monitoring. Sodium slightly lower at 129 and will follow-up with repeat labs. Patient is afebrile denies chest pain or palpitations. Patient denies shortness of breath and vital signs have been stable. 02/18/2023 Patient is seen and evaluated in follow-up today and being closely monitored. Patient continues to await guardianship decision on possible AFC and safe discharge planning and social work along with APS continuing to attempt to contact family which have been unsuccessful. Lisinopril being held and is showing improvement in swelling continues with some facial redness otherwise swelling has improved. We'll continue current regimen and monitor blood pressure closely. Potassium is 3.2 today and will replace per protocol and follow-up with repeat labs. Sodium has improved and is currently 133. Encouraged oral intake and will add supplements. Review of Systems Constitutional: No reports of fatigue, denied any fever. Cardio vascular: denied any chest pain, palpitations Gastrointestinal: denied any nausea, vomiting, diarrhea Pulmonary: Denied any shortness of breath cough Neurologic denied any new focal deficits All inpatient medications were reviewed and appropriate changes in these medications as dictated in the interval history and assessment and plan. PHYSICAL EXAMINATION: GENERAL: The patient is alert and oriented x1. Awake, calm, cooperative. Well developed, well nourished. HEENT: Pupils are round and equally reacting to light. EOMI. No scleral icterus. No conjunctival pallor. Normocephalic, atraumatic. No pharyngeal erythema. No thyromegaly. CARDIOVASCULAR: S1 and S2 present. No murmurs, rubs, or gallops. PULMONARY: Chest is clear to auscultation, no wheezing or crackles. ABDOMEN: Soft, nontender, nondistended, normoactive bowel sounds. No palpable organomegaly. MUSCULOSKELETAL: No joint swelling or deformity. EXTREMITIES: No cyanosis, clubbing, or pedal edema. NEUROLOGICAL: Gross neurological examination did not reveal any focal deficits. Limited neurological exam because of her advanced dementia SKIN: No rashes. Mild redness noted of the face with improvement Assessment: -Angioedema. Patient developed lip swelling overnight. Lisinopril is on hold. Improving -Advanced dementia patient is presently not encephalopathic patient confusion is at her baseline. -Hypokalemia, improved -Hyponatremia, secondary to poor oral intake possible component of excessive water intake improving 133 today -Anxiety disorder -Hypertension -DVT prophylaxis: Lovenox -GI prophylaxis: Protonix -Full Code Plan: Lisinopril is on hold possible drug reaction. Medication added to allergy list. Patient to continue with Norvasc and blood pressure currently controlled Encouraged oral intake and sodium has improved at 133. Potassium slightly low at 3.2 and will replace per protocol Social work continues to follow and has received a guardian currently awaiting correction of AFC or ECF and working on discharge planning Encouraged oral intake Patient is an elopement risk and at baseline alert and oriented 1 with advanced dementia Recommend continue current medication regimen Patient is medically stable for discharge pending DC planning with social work Prognosis guarded The impression and plan of care has been dictated by Pepper Pablo, Nurse Practitioner as directed. Dr. Eloisa MD I have performed a history and examination and MDM of this patient, discussed the same with the dictator, and agree with the dictator's assessment and plan as written ,documented as a scribe. Based on total visit time, I have performed more than 50% of the visit. Objective - Vital Signs Vital signs: Vital Signs Temp 99.1 F 02/18/23 08:00 Pulse 58 L 02/18/23 08:00 Resp 20 02/18/23 08:00 BP 109/68 02/18/23 08:00 Pulse Ox 98 02/18/23 08:00 FiO2 Intake & Output 02/17/23 02/18/23 02/18/23 18:59 06:59 18:59 Intake Total 358 Balance 358 Intake: Oral 358 Other: # Voids 6 3 - Labs CBC & Chem 7: 02/17/23 06:38 02/18/23 07:37 Labs: Abnormal Lab Results - Last 24 Hours (Table) 02/18/23 Range/Units 07:37 Sodium 133 L (137-145) mmol/L Potassium 3.2 L (3.5-5.1) mmol/L Chloride 97 L (98-107) mmol/L
[2023-02-19] MEDS: DONEPEZIL 10 MG TAB PO SCH ×2 (09:24→20:07)
[2023-02-19] MEDS: FAMOTIDINE 20 MG TAB PO SCH (09:24)
[2023-02-19] MEDS: predniSONE 20 MG TAB PO SCH (09:24)
[2023-02-19] MEDS: ENOXAPARIN 40 MG/0.4 ML SYRINGE SQ SCH (09:24)
[2023-02-19] MEDS: amLODIPine 10 MG TAB PO SCH (09:24)
[2023-02-19] MEDS: diphenhydrAMINE 25 MG CAP PO PRN (14:37)
[2023-02-19] MEDS: ALPRAZolam 0.25 MG TAB PO PRN (20:11)
[2023-02-19] MEDS: QUEtiapine 25 MG TAB PO PRN (23:27)
--- NOTE | 2023-02-20 06:00 | P.PN ---
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 Basic labs are essentially within normal limits. No significant abnormality was evident on chest x-ray and CT of the head 02/07/2023 Pending PT/OT evauation and placement. Hemodynamically stable. Discharge planning in progress with social work. Patient is evaluated today up in the chair with staff at the bedside. Patient is alert x 1 and pleasant with no acute complaints. APS services is following the patient. 02/08/2023 Patient unable to be discharged to subacute rehab yesterday as patient is pending guardianship with APS following and will require ECF on discharge. Patient remains alert x 1, pleasant does have difficulty findings words this is baseline with advanced dementia at baseline. Patient is asking about her today. Patient has no complaints at this time. 02/09/2023 Patient has no acute complaints overnight. Patient has been up ambulating in the room and dressed in street clothes. Patient is asking about discharge. May require legal guardian and also APS following with ECF needed on discharge. Patient has advanced dementia at baseline. 02/10/2023 Patient currently with no acute complaints. Alert x 1 today and pleasant. Pending guardianship and placement currently. Follow up with social work. 02/11/2023 Patient is seen and evaluated in follow-up currently sitting up in bed with no reports of nausea or vomiting noted. Patient reports tolerating diet. Patient denies chest pain or shortness of breath and currently awaiting possible guardianship hearing on Friday. Social work is involved and has been working with arranging for AFC availability as well as APS. Patient continues to be at her baseline alert and oriented 1 and is pleasant and cooperative. Will follow-up with repeat labs in a.m. 02/12/2023 Patient is seen and evaluated in follow-up today patient reports being tired although easily arousable. Patient is pleasantly confused and at her baseline with dementia. Follow-up labs show a potassium of 3.0 and will replace per protocol and repeat labs in the a.m. Patient is afebrile denies chest pain or s hortness of breath. No reports of nausea or vomiting and patient is tolerating diet. Social work following along with APS and patient does have guardianship hearing on Friday. 02/13/2023 Patient is seen and evaluated in follow-up no acute overnight issues noted. Patient has a court hearing tomorrow for guardianship with social work following closely. Plan is for patient to go to [facility]FC once guardianship hearing is settled. Patient is currently afebrile with no reports of chest pain or shortness of breath. Patient is tolerating diet and needs encouragement with oral intake. 02/14/2023 Patient is seen and evaluated in follow-up today currently awaiting a court hearing with social work today for guardianship. APS and social work following closely working on possible AFC for safe discharge planning. Patient is tolerating oral intake needs encouragement she eats very little with no reports of nausea or vomiting noted. Patient denies any chest pain or shortness of breath. Patient has been up and walking to the bathroom independently with no difficulties. Currently awaiting on possible AFC and will await court hearing to determine guardianship. 02/15/2023 Patient is currently lying in the bed. Awake alert but still confused. Able to walk to the bathroom. Denies any complaints of nausea vomiting or diarrhea. No complaints of chest pain or shortness of breath. Patient is awaiting court hearing for guardianship. blood pressure is controlled. No complaints of headache or dizziness or lightheadedness. Laboratory data reviewed. 02/16/2023 Patient is currently lying in the bed. Awake alert but confused. Mental status at baseline. Patient developed lip swelling overnight with redness extending to the face bilaterally. Denies any complaints of shortness of breath. No difficulty swallowing. No nausea vomiting or abdominal pain or diarrhea. Lisinopril is on hold. Patient is not on lisinopril at home. Continue with amlodipine 10 mg daily. Laboratory showed sodium 131 potassium 3.3 chloride 96 bicarb is 27 BUN 10 and creatinine 0.87 and calcium 9.2. 02/17/2023 Patient is seen in follow-up and reports no acute overnight issues. Patient maintained on steroids and lisinopril has been discontinued. Swelling of the face has improved although discontinuous redness. Patient reports she is not using anything other than lipstick Chapstick that she always uses. Patient reports to eating with no difficulties although needs encouragement and patient has been drinking excessive amounts of water per nursing staff. Recommend fluid restrictions and close monitoring. Sodium slightly lower at 129 and will follow-up with repeat labs. Patient is afebrile denies chest pain or palpitations. Patient denies shortness of breath and vital signs have been stable. 02/18/2023 Patient is seen and evaluated in follow-up today and being closely monitored. Patient continues to await guardianship decision on possible AFC and safe discharge planning and social work along with APS continuing to attempt to contact family which have been unsuccessful. Lisinopril being held and is showing improvement in swelling continues with some facial redness otherwise swelling has improved. We'll continue current regimen and monitor blood pressure closely. Potassium is 3.2 today and will replace per protocol and follow-up with repeat labs. Sodium has improved and is currently 133. Encouraged oral intake and will add supplements. 02/19/2023 Patient is seated evaluated in follow-up today with no acute overnight issues noted. Patient has not been sleeping very well per nursing staff and has been up most of the night throughout most of the day. Patient with social work following continuing to work with APS along with guardian in regards to safe discharge planning. Patient is afebrile denies chest pain or shortness of breath reports is tolerating diet and eating although needs encouragement and is continued on fluid retractions. Will follow-up with repeat potassium and replace per protocol if needed. Review of Systems Constitutional: No reports of fatigue, denied any fever. Cardio vascular: denied any chest pain, palpitations Gastrointestinal: denied any nausea, vomiting, diarrhea Pulmonary: Denied any shortness of breath cough Neurologic denied any new focal deficits All inpatient medications were reviewed and appropriate changes in these me dications as dictated in the interval history and assessment and plan. PHYSICAL EXAMINATION: GENERAL: The patient is alert and oriented x1. Awake, calm, cooperative. Well developed, well nourished. HEENT: Pupils are round and equally reacting to light. EOMI. No scleral icterus. No conjunctival pallor. Normocephalic, atraumatic. No pharyngeal erythema. No thyromegaly. CARDIOVASCULAR: S1 and S2 present. No murmurs, rubs, or gallops. PULMONARY: Chest is clear to auscultation, no wheezing or crackles. ABDOMEN: Soft, nontender, nondistended, normoactive bowel sounds. No palpable organomegaly. MUSCULOSKELETAL: No joint swelling or deformity. EXTREMITIES: No cyanosis, clubbing, or pedal edema. NEUROLOGICAL: Gross neurological examination did not reveal any focal deficits. Limited neurological exam because of her advanced dementia SKIN: No rashes. Mild redness noted of the face with improvement Assessment: -Angioedema. Patient developed lip swelling overnight. Lisinopril is on hold. Improving -Advanced dementia patient is presently not encephalopathic patient confusion is at her baseline. -Hypokalemia, improved -Hyponatremia, secondary to poor oral intake possible component of excessive water intake improving -Anxiety disorder -Hypertension -DVT prophylaxis: Lovenox -GI prophylaxis: Protonix -Full Code Plan: Lisinopril is on hold due to possible drug reaction. Medication added to allergy list. Patient to continue with Norvasc and blood pressure currently c ontrolled Encouraged oral intake and sodium has improved at 133. Potassium was slightly low at 3.2 and replaced and will follow-up labs in the a.m. Social work continues to follow and has received a guardian currently awaiting AFC or ECF although guardian and APS have yet to have contact with spouse in regards to financial situations and the fact that she did have Medicaid in the past and now does not which is causing further delay on safe discharge planning Encouraged oral intake Patient is an elopement risk and at baseline alert and oriented 1 with advanced dementia Recommend continue current medication regimen Patient is medically stable for discharge pending DC planning with social work Prognosis guarded The impression and plan of care has been dictated by Pepper aPblo, Nurse Practitioner as directed. Dr. Eloisa MD I have performed a history and examination and MDM of this patient, discussed the same with the dictator, and agree with the dictator's assessment and plan as written ,documented as a scribe. Based on total visit time, I have performed more than 50% of the visit. Objective - Vital Signs Vital signs: Vital Signs Temp 98.2 F 02/19/23 07:09 Pulse 55 L 02/19/23 07:09 Resp 17 02/19/23 07:09 BP 132/80 02/19/23 07:09 Pulse Ox 98 02/19/23 07:09 FiO2 Intake & Output 06/13/23 06/14/23 06/14/23 18:59 06:59 18:59 Intake Total 598 Balance 598 Intake: Oral 598 Other: Voiding Method Toilet # Voids 2 1 - Labs CBC & Chem 7: 02/17/23 06:38 02/18/23 07:37
[2023-02-20] MEDS: DONEPEZIL 10 MG TAB PO SCH ×2 (09:14→20:58)
[2023-02-20] MEDS: ENOXAPARIN 40 MG/0.4 ML SYRINGE SQ SCH (09:14)
[2023-02-20] MEDS: diphenhydrAMINE 25 MG CAP PO PRN ×2 (09:14→20:58)
[2023-02-20] MEDS: predniSONE 20 MG TAB PO SCH (09:14)
[2023-02-20] MEDS: amLODIPine 10 MG TAB PO SCH (09:15)
[2023-02-20] MEDS: ACETAMINOPHEN TAB 325 MG TAB PO PRN (09:15)
[2023-02-20] MEDS: ALPRAZolam 0.25 MG TAB PO PRN ×2 (09:15→20:58)
[2023-02-20] MEDS: FAMOTIDINE 20 MG TAB PO SCH (09:15)
[2023-02-20] MEDS: QUEtiapine 25 MG TAB PO PRN (20:58)
--- NOTE | 2023-02-21 04:50 | P.PN ---
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 Basic labs are essentially within normal limits. No significant abnormality was evident on chest x-ray and CT of the head 02/07/2023 Pending PT/OT evauation and placement. Hemodynamically stable. Discharge planning in progress with social work. Patient is evaluated today up in the chair with staff at the bedside. Patient is alert x 1 and pleasant with no acute complaints. APS services is following the patient. 02/08/2023 Patient unable to be discharged to subacute rehab yesterday as patient is pending guardianship with APS following and will require ECF on discharge. Patient remains alert x 1, pleasant does have difficulty findings words this is baseline with advanced dementia at baseline. Patient is asking about her today. Patient has no complaints at this time. 02/09/2023 Patient has no acute complaints overnight. Patient has been up ambulating in the room and dressed in street clothes. Patient is asking about discharge. May require legal guardian and also APS following with ECF needed on discharge. Patient has advanced dementia at baseline. 02/10/2023 Patient currently with no acute complaints. Alert x 1 today and pleasant. Pending guardianship and placement currently. Follow up with social work. 02/11/2023 Patient is seen and evaluated in follow-up currently sitting up in bed with no reports of nausea or vomiting noted. Patient reports tolerating diet. Patient denies chest pain or shortness of breath and currently awaiting possible guardianship hearing on Friday. Social work is involved and has been working with arranging for AFC availability as well as APS. Patient continues to be at her baseline alert and oriented 1 and is pleasant and cooperative. Will follow-up with repeat labs in a.m. 02/12/2023 Patient is seen and evaluated in follow-up today patient reports being tired although easily arousable. Patient is pleasantly confused and at her baseline with dementia. Follow-up labs show a potassium of 3.0 and will replace per protocol and repeat labs in the a.m. Patient is afebrile denies chest pain or s hortness of breath. No reports of nausea or vomiting and patient is tolerating diet. Social work following along with APS and patient does have guardianship hearing on Friday. 02/13/2023 Patient is seen and evaluated in follow-up no acute overnight issues noted. Patient has a court hearing tomorrow for guardianship with social work following closely. Plan is for patient to go to AFC once guardianship hearing is settled. Patient is currently afebrile with no reports of chest pain or shortness of breath. Patient is tolerating diet and needs encouragement with oral intake. 02/14/2023 Patient is seen and evaluated in follow-up today currently awaiting a court hearing with social work today for guardianship. APS and social work following closely working on possible A[facility] for safe discharge planning. Patient is tolerating oral intake needs encouragement she eats very little with no reports of nausea or vomiting noted. Patient denies any chest pain or shortness of breath. Patient has been up and walking to the bathroom independently with no difficulties. Currently awaiting on possible AFC and will await court hearing to determine guardianship. 02/15/2023 Patient is currently lying in the bed. Awake alert but still confused. Able to walk to the bathroom. Denies any complaints of nausea vomiting or diarrhea. No complaints of chest pain or shortness of breath. Patient is awaiting court hearing for guardianship. blood pressure is controlled. No complaints of headache or dizziness or lightheadedness. Laboratory data reviewed. 02/16/2023 Patient is currently lying in the bed. Awake alert but confused. Mental status at baseline. Patient developed lip swelling overnight with redness extending to the face bilaterally. Denies any complaints of shortness of breath. No difficulty swallowing. No nausea vomiting or abdominal pain or diarrhea. Lisinopril is on hold. Patient is not on lisinopril at home. Continue with amlodipine 10 mg daily. Laboratory showed sodium 131 potassium 3.3 chloride 96 bicarb is 27 BUN 10 and creatinine 0.87 and calcium 9.2. 02/17/2023 Patient is seen in follow-up and reports no acute overnight issues. Patient maintained on steroids and lisinopril has been discontinued. Swelling of the face has improved although discontinuous redness. Patient reports she is not using anything other than lipstick Chapstick that she always uses. Patient reports to eating with no difficulties although needs encouragement and patient has been drinking excessive amounts of water per nursing staff. Recommend fluid restrictions and close monitoring. Sodium slightly lower at 129 and will follow-up with repeat labs. Patient is afebrile denies chest pain or palpitations. Patient denies shortness of breath and vital signs have been stable. 02/18/2023 Patient is seen and evaluated in follow-up today and being closely monitored. Patient continues to await guardianship decision on possible AFC and safe discharge planning and social work along with APS continuing to attempt to contact family which have been unsuccessful. Lisinopril being held and is showing improvement in swelling continues with some facial redness otherwise swelling has improved. We'll continue current regimen and monitor blood pressure closely. Potassium is 3.2 today and will replace per protocol and follow-up with repeat labs. Sodium has improved and is currently 133. Encouraged oral intake and will add supplements. 02/19/2023 Patient is seated evaluated in follow-up today with no acute overnight issues noted. Patient has not been sleeping very well per nursing staff and has been up most of the night throughout most of the day. Patient with social work following continuing to work with APS along with guardian in regards to safe discharge planning. Patient is afebrile denies chest pain or shortness of breath reports is tolerating diet and eating although needs encouragement and is continued on fluid retractions. Will follow-up with repeat potassium and replace per protocol if needed. 02/20/2023 Patient is seen and evaluated in follow-up in being closely monitored. Follow- up potassium improved to 4.2 and patient reports is tolerating oral intake. Patient denies chest pain or shortness of breath remains afebrile. Blood pressure stable and will continue current regimen. Patient continues to frequently wash and rub her face multiple times throughout the day per nursing staff and excessively rubbing since her concerns of ALLERGIC reaction. Patient denies any throat swelling, tongue swelling or difficulty breathing. Patient is maintaining oxygen saturations above 95% on room air. Patient is continued on prednisone and will continue to taper. Continue Benadryl as needed. Social work following continuing to work with by mouth guardian office as well as APS and safe discharge planning. Review of Systems Constitutional: No reports of fatigue, denied any fever. Cardio vascular: denied any chest pain, palpitations Gastrointestinal: denied any nausea, vomiting, diarrhea Pulmonary: Denied any shortness of breath cough Neurologic denied any new focal deficits PHYSICAL EXAMINATION: GENERAL: The patient is alert and oriented x1. Awake, calm, cooperative. Well developed, well nourished. HEENT: Pupils are round and equally reacting to light. EOMI. No scleral icterus. No conjunctival pallor. Normocephalic, atraumatic. No pharyngeal erythema. No thyromegaly. CARDIOVASCULAR: S1 and S2 present. No murmurs, rubs, or gallops. PULMONARY: Chest is clear to auscultation, no wheezing or crackles. ABDOMEN: Soft, nontender, nondistended, normoactive bowel sounds. No palpable organomegaly. MUSCULOSKELETAL: No joint swelling or deformity. EXTREMITIES: No cyanosis, clubbing, or pedal edema. NEUROLOGICAL: Gross neurological examination did not reveal any focal deficits. Limited neurological exam because of her advanced dementia SKIN: No rashes. Mild redness noted of the face with some improvement Assessment: -Angioedema. Patient developed lip swelling overnight. Lisinopril is on hold. Improving -Advanced dementia patient is presently not encephalopathic patient confusion is at her baseline. -Hypokalemia, improved -Hyponatremia, secondary to poor oral intake possible component of excessive martha er intake improving -Anxiety disorder -Hypertension -DVT prophylaxis: Lovenox -GI prophylaxis: Protonix -Full Code Plan: Lisinopril is on hold due to possible drug reaction. Medication added to allergy list. Patient to continue with Norvasc and blood pressure currently controlled Encouraged oral intake and follow-up potassium to be 4.4 Social work continues to follow and has received a legal public guardian and currently awaiting [facility] or [facility] social work able to contact spouse in regards to financial situations and informed guardian to contact about this. Apparently he remains in a penitentiary at this time which is causing further delay on safe discharge planning Encouraged oral intake Patient is an elopement risk and at baseline alert and oriented 1 with advanced dementia Recommend continue current medication regimen Patient is medically stable for discharge pending DC planning with social work Prognosis guarded The impression and plan of care has been dictated by Pepper Pablo, Nurse Practitioner as directed. Dr. Eloisa MD I have performed a history and examination and MDM of this patient, discussed the same with the dictator, and agree with the dictator's assessment and plan as written ,documented as a scribe. Based on total visit time, I have performed more than 50% of the visit. Objective - Vital Signs Vital signs: Vital Signs Temp 97.5 F L 02/20/23 07:20 Pulse 66 02/20/23 07:20 Resp 17 02/20/23 07:20 BP 125/72 02/20/23 07:20 Pulse Ox 96 02/20/23 07:20 FiO2 Intake & Output 02/19/23 02/20/23 02/20/23 18:59 06:59 18:59 Intake Total 818 Output Total 300 0 Balance 518 0 Intake: Oral 818 Output: Urine 300 Stool 0 Other: Voiding Method Toilet - Labs CBC & Chem 7: 02/17/23 06:38 02/20/23 06:09
[2023-02-21] MEDS: ALPRAZolam 0.25 MG TAB PO PRN ×2 (08:27→21:15)
[2023-02-21] MEDS: ACETAMINOPHEN TAB 325 MG TAB PO PRN (08:27)
[2023-02-21] MEDS: amLODIPine 10 MG TAB PO SCH (08:27)
[2023-02-21] MEDS: predniSONE 20 MG TAB PO SCH (08:27)
[2023-02-21] MEDS: DONEPEZIL 10 MG TAB PO SCH ×2 (08:27→21:15)
[2023-02-21] MEDS: FAMOTIDINE 20 MG TAB PO SCH (08:27)
[2023-02-21] MEDS: ENOXAPARIN 40 MG/0.4 ML SYRINGE SQ SCH (08:28)
[2023-02-21] MEDS: diphenhydrAMINE 25 MG CAP PO PRN (12:14)
--- NOTE | 2023-02-21 20:12 | P.PN ---
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 Basic labs are essentially within normal limits. No significant abnormality was evident on chest x-ray and CT of the head 02/07/2023 Pending PT/OT evauation and placement. Hemodynamically stable. Discharge planning in progress with social work. Patient is evaluated today up in the chair with staff at the bedside. Patient is alert x 1 and pleasant with no acute complaints. APS services is following the patient. 02/08/2023 Patient unable to be discharged to subacute rehab yesterday as patient is pending guardianship with APS following and will require ECF on discharge. Patient remains alert x 1, pleasant does have difficulty findings words this is baseline with advanced dementia at baseline. Patient is asking about her today. Patient has no complaints at this time. 02/09/2023 Patient has no acute complaints overnight. Patient has been up ambulating in the room and dressed in street clothes. Patient is asking about discharge. May require legal guardian and also APS following with ECF needed on discharge. Patient has advanced dementia at baseline. 02/10/2023 Patient currently with no acute complaints. Alert x 1 today and pleasant. Pending guardianship and placement currently. Follow up with social work. 02/11/2023 Patient is seen and evaluated in follow-up currently sitting up in bed with no reports of nausea or vomiting noted. Patient reports tolerating diet. Patient denies chest pain or shortness of breath and currently awaiting possible guardianship hearing on Friday. Social work is involved and has been working with arranging for AFC availability as well as APS. Patient continues to be at her baseline alert and oriented 1 and is pleasant and cooperative. Will follow-up with repeat labs in a.m. 02/12/2023 Patient is seen and evaluated in follow-up today patient reports being tired although easily arousable. Patient is pleasantly confused and at her baseline with dementia. Follow-up labs show a potassium of 3.0 and will replace per protocol and repeat labs in the a.m. Patient is afebrile denies chest pain or s hortness of breath. No reports of nausea or vomiting and patient is tolerating diet. Social work following along with APS and patient does have guardianship hearing on Friday. 02/13/2023 Patient is seen and evaluated in follow-up no acute overnight issues noted. Patient has a court hearing tomorrow for guardianship with social work following closely. Plan is for patient to go to [facility]FC once guardianship hearing is settled. Patient is currently afebrile with no reports of chest pain or shortness of breath. Patient is tolerating diet and needs encouragement with oral intake. 02/14/2023 Patient is seen and evaluated in follow-up today currently awaiting a court hearing with social work today for guardianship. APS and social work following closely working on possible A[facility] for safe discharge planning. Patient is tolerating oral intake needs encouragement she eats very little with no reports of nausea or vomiting noted. Patient denies any chest pain or shortness of breath. Patient has been up and walking to the bathroom independently with no difficulties. Currently awaiting on possible AFC and will await court hearing to determine guardianship. 02/15/2023 Patient is currently lying in the bed. Awake alert but still confused. Able to walk to the bathroom. Denies any complaints of nausea vomiting or diarrhea. No complaints of chest pain or shortness of breath. Patient is awaiting court hearing for guardianship. blood pressure is controlled. No complaints of headache or dizziness or lightheadedness. Laboratory data reviewed. 02/16/2023 Patient is currently lying in the bed. Awake alert but confused. Mental status at baseline. Patient developed lip swelling overnight with redness extending to the face bilaterally. Denies any complaints of shortness of breath. No difficulty swallowing. No nausea vomiting or abdominal pain or diarrhea. Lisinopril is on hold. Patient is not on lisinopril at home. Continue with amlodipine 10 mg daily. Laboratory showed sodium 131 potassium 3.3 chloride 96 bicarb is 27 BUN 10 and creatinine 0.87 and calcium 9.2. 02/17/2023 Patient is seen in follow-up and reports no acute overnight issues. Patient maintained on steroids and lisinopril has been discontinued. Swelling of the face has improved although discontinuous redness. Patient reports she is not using anything other than lipstick Chapstick that she always uses. Patient reports to eating with no difficulties although needs encouragement and patient has been drinking excessive amounts of water per nursing staff. Recommend fluid restrictions and close monitoring. Sodium slightly lower at 129 and will follow-up with repeat labs. Patient is afebrile denies chest pain or palpitations. Patient denies shortness of breath and vital signs have been stable. 02/18/2023 Patient is seen and evaluated in follow-up today and being closely monitored. Patient continues to await guardianship decision on possible AFC and safe discharge planning and social work along with APS continuing to attempt to contact family which have been unsuccessful. Lisinopril being held and is showing improvement in swelling continues with some facial redness otherwise swelling has improved. We'll continue current regimen and monitor blood pressure closely. Potassium is 3.2 today and will replace per protocol and follow-up with repeat labs. Sodium has improved and is currently 133. Encouraged oral intake and will add supplements. 02/19/2023 Patient is seated evaluated in follow-up today with no acute overnight issues noted. Patient has not been sleeping very well per nursing staff and has been up most of the night throughout most of the day. Patient with social work following continuing to work with APS along with guardian in regards to safe discharge planning. Patient is afebrile denies chest pain or shortness of breath reports is tolerating diet and eating although needs encouragement and is continued on fluid retractions. Will follow-up with repeat potassium and replace per protocol if needed. 02/20/2023 Patient is seen and evaluated in follow-up in being closely monitored. Follow- up potassium improved to 4.2 and patient reports is tolerating oral intake. Patient denies chest pain or shortness of breath remains afebrile. Blood pressure stable and will continue current regimen. Patient continues to frequently wash and rub her face multiple times throughout the day per nursing staff and excessively rubbing since her concerns of ALLERGIC reaction. Patient denies any throat swelling, tongue swelling or difficulty breathing. Patient is maintaining oxygen saturations above 95% on room air. Patient is continued on prednisone and will continue to taper. Continue Benadryl as needed. Social work following continuing to work with by mouth guardian office as well as APS and safe discharge planning. 02/21/2023 Patient is seen and evaluated in follow-up today continuing to await for safe discharge planning. Per social work the go guardian is following up with patient's spouse in regard to financial situations as he is currently in a prison in the [place] area and not back home for another 2 weeks. Working on potentially applying for Medicaid for possible AFC. Patient is afebrile with no reports of chest pain or shortness of breath. Patient is tolerating diet. Patient needs frequently orienting in regards to rubbing and itching her face she continues to wash and scratch at her face multiple times throughout the day. Redness is improving from possible ALLERGIC reaction to lisinopril. Patient is on a prednisone taper and will titrate further. Encourage oral intake and will continue to monitor closely while awaiting for safe discharge planning. Review of Systems Constitutional: No reports of fatigue, denied any fever. Cardio vascular: denied any chest pain, palpitations Gastrointestinal: denied any nausea, vomiting, diarrhea Pulmonary: Denied any shortness of breath cough Neurologic denied any new focal deficits PHYSICAL EXAMINATION: GENERAL: The patient is alert and oriented x1. Anxious at times. Awake. cooperative. Well developed, well nourished. HEENT: Pupils are round and equally reacting to light. EOMI. No scleral icterus. No conjunctival pallor. Normocephalic, atraumatic. No pharyngeal erythema. No thyromegaly. CARDIOVASCULAR: S1 and S2 present. No murmurs, rubs, or gallops. PULMONARY: Chest is clear to auscultation, no wheezing or crackles. ABDOMEN: Soft, nontender, nondistended, normoactive bowel sounds. No palpable organomegaly. MUSCULOSKELETAL: No joint swelling or deformity. EXTREMITIES: No cyanosis, clubbing, or pedal edema. NEUROLOGICAL: Gross neurological examination did not reveal any focal deficits. Limited neurological exam because of her advanced dementia SKIN: No rashes. Mild redness noted of the face with some improvement. There is some dry very small patches noted on upper lip with flaking skin and there is no mouth edema or noted throat swelling or tongue swelling on exam Assessment: -Angioedema. Patient developed lip swelling overnight. Possibly ALLERGIC reaction to lisinopril. Lisinopril is on hold. Improving -Advanced dementia patient is presently not encephalopathic patient confusion is at her baseline. -Hypokalemia, improved -Hyponatremia, secondary to poor oral intake possible component of excessive water intake, improved -Anxiety disorder -Hypertension -DVT prophylaxis: Lovenox -GI prophylaxis: Protonix -Full Code Plan: Recommend to continue with current medications and management and blood pressure is controlled with Norvasc and will continue. Lisinopril has been discontinued Patient's redness is improving although patient has been excessively washing and rubbing her face making it difficult to assess. Patient does not have any lip swelling, tongue swelling or throat swelling noted on exam. Per nursing staff patient needs supervision with brushing her teeth and bathroom use as she continues to rub her face excessively. Patient denies any itching or swelling with no difficulty in swallowing or shortness of breath. Encouraged oral intake Social work continues to follow and has received a legal public guardian and currently awaiting AFC or ECF social work able to contact spouse in regards t o financial situations and informed guardian to contact about this. Apparently he remains in a prison at this time which is causing further delay on safe discharge planning. Patient is an elopement risk and at baseline alert and oriented 1 with advanced dementia Recommend continue current medication regimen Patient is medically stable for discharge pending DC planning with social work Prognosis guarded The impression and plan of care has been dictated by Pepper Pablo, Nurse Practitioner as directed. Dr. Eloisa MD I have performed a history and examination and MDM of this patient, discussed the same with the dictator, and agree with the dictator's assessment and plan as written ,documented as a scribe. Based on total visit time, I have performed more than 50% of the visit. Objective - Vital Signs Vital signs: Vital Signs Temp 98.1 F 02/21/23 07:33 Pulse 60 02/21/23 07:33 Resp 16 02/21/23 07:33 BP 118/68 02/21/23 07:33 Pulse Ox 96 02/21/23 07:33 FiO2 Intake & Output 02/20/23 02/21/23 02/21/23 18:59 06:59 18:59 Output Total 500 Balance -500 Output: Urine 500 Other: Voiding Method Toilet # Voids 3 - Labs CBC & Chem 7: 02/17/23 06:38 02/20/23 06:09
[2023-02-22] MEDS: amLODIPine 10 MG TAB PO SCH (08:16)
[2023-02-22] MEDS: ENOXAPARIN 40 MG/0.4 ML SYRINGE SQ SCH (08:16)
[2023-02-22] MEDS: DONEPEZIL 10 MG TAB PO SCH ×2 (08:16→22:12)
[2023-02-22] MEDS: predniSONE 10 MG TAB PO SCH (08:16)
[2023-02-22] MEDS: FAMOTIDINE 20 MG TAB PO SCH (08:16)
[2023-02-22] MEDS: ALPRAZolam 0.25 MG TAB PO PRN ×2 (09:16→22:12)
--- NOTE | 2023-02-22 16:06 | P.PN ---
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 Basic labs are essentially within normal limits. No significant abnormality was evident on chest x-ray and CT of the head 02/07/2023 Pending PT/OT evauation and placement. Hemodynamically stable. Discharge planning in progress with social work. Patient is evaluated today up in the chair with staff at the bedside. Patient is alert x 1 and pleasant with no acute complaints. APS services is following the patient. 02/08/2023 Patient unable to be discharged to subacute rehab yesterday as patient is pending guardianship with APS following and will require ECF on discharge. Patient remains alert x 1, pleasant does have difficulty findings words this is baseline with advanced dementia at baseline. Patient is asking about her today. Patient has no complaints at this time. 02/09/2023 Patient has no acute complaints overnight. Patient has been up ambulating in the room and dressed in street clothes. Patient is asking about discharge. May require legal guardian and also APS following with ECF needed on discharge. Patient has advanced dementia at baseline. 02/10/2023 Patient currently with no acute complaints. Alert x 1 today and pleasant. Pending guardianship and placement currently. Follow up with social work. 02/11/2023 Patient is seen and evaluated in follow-up currently sitting up in bed with no reports of nausea or vomiting noted. Patient reports tolerating diet. Patient denies chest pain or shortness of breath and currently awaiting possible guardianship hearing on Friday. Social work is involved and has been working with arranging for AFC availability as well as APS. Patient continues to be at her baseline alert and oriented 1 and is pleasant and cooperative. Will follow-up with repeat labs in a.m. 02/12/2023 Patient is seen and evaluated in follow-up today patient reports being tired although easily arousable. Patient is pleasantly confused and at her baseline with dementia. Follow-up labs show a potassium of 3.0 and will replace per protocol and repeat labs in the a.m. Patient is afebrile denies chest pain or shortness of breath. No reports of nausea or vomiting and patient is tolerating diet. Social work following along with APS and patient does have guardianship hearing on Friday. 02/13/2023 Patient is seen and evaluated in follow-up no acute overnight issues noted. Patient has a court hearing tomorrow for guardianship with social work following closely. Plan is for patient to go to AFC once guardianship hearing is settled. Patient is currently afebrile with no reports of chest pain or shortness of breath. Patient is tolerating diet and needs encouragement with oral intake. 02/14/2023 Patient is seen and evaluated in follow-up today currently awaiting a court hearing with social work today for guardianship. APS and social work following closely working on possible AFC for safe discharge planning. Patient is tolerating oral intake needs encouragement she eats very little with no reports of nausea or vomiting noted. Patient denies any chest pain or shortness of breath. Patient has been up and walking to the bathroom independently with no difficulties. Currently awaiting on possible AFC and will await court hearing to determine guardianship. 02/15/2023 Patient is currently lying in the bed. Awake alert but still confused. Able to walk to the bathroom. Denies any complaints of nausea vomiting or diarrhea. No complaints of chest pain or shortness of breath. Patient is awaiting court hearing for guardianship. blood pressure is controlled. No complaints of headache or dizziness or lightheadedness. Laboratory data reviewed. 02/16/2023 Patient is currently lying in the bed. Awake alert but confused. Mental status at baseline. Patient developed lip swelling overnight with redness extending to the face bilaterally. Denies any complaints of shortness of breath. No difficulty swallowing. No nausea vomiting or abdominal pain or diarrhea. Lisinopril is on hold. Patient is not on lisinopril at home. Continue with amlodipine 10 mg daily. Laboratory showed sodium 131 potassium 3.3 chloride 96 bicarb is 27 BUN 10 and creatinine 0.87 and calcium 9.2. 02/17/2023 Patient is seen in follow-up and reports no acute overnight issues. Patient maintained on steroids and lisinopril has been discontinued. Swelling of the face has improved although discontinuous redness. Patient reports she is not using anything other than lipstick Chapstick that she always uses. Patient reports to eating with no difficulties although needs encouragement and patient has been drinking excessive amounts of water per nursing staff. Recommend fluid restrictions and close monitoring. Sodium slightly lower at 129 and will follow-up with repeat labs. Patient is afebrile denies chest pain or palpitations. Patient denies shortness of breath and vital signs have been stable. 02/18/2023 Patient is seen and evaluated in follow-up today and being closely monitored. Patient continues to await guardianship decision on possible AFC and safe discharge planning and social work along with APS continuing to attempt to contact family which have been unsuccessful. Lisinopril being held and is showing improvement in swelling continues with some facial redness otherwise swelling has improved. We'll continue current regimen and monitor blood pressure closely. Potassium is 3.2 today and will replace per protocol and follow-up with repeat labs. Sodium has improved and is currently 133. Encouraged oral intake and will add supplements. 02/19/2023 Patient is seated evaluated in follow-up today with no acute overnight issues noted. Patient has not been sleeping very well per nursing staff and has been up most of the night throughout most of the day. Patient with social work following continuing to work with APS along with guardian in regards to safe discharge planning. Patient is afebrile denies chest pain or shortness of breath reports is tolerating diet and eating although needs encouragement and is continued on fluid retractions. Will follow-up with repeat potassium and replace per protocol if needed. 02/20/2023 Patient is seen and evaluated in follow-up in being closely monitored. Follow- up potassium improved to 4.2 and patient reports is tolerating oral intake. Patient denies chest pain or shortness of breath remains afebrile. Blood pressure stable and will continue current regimen. Patient continues to frequently wash and rub her face multiple times throughout the day per nursing staff and excessively rubbing since her concerns of ALLERGIC reaction. Patient denies any throat swelling, tongue swelling or difficulty breathing. Patient is maintaining oxygen saturations above 95% on room air. Patient is continued on prednisone and will continue to taper. Continue Benadryl as needed. Social work following continuing to work with by mouth guardian office as well as APS and safe discharge planning. 02/21/2023 Patient is seen and evaluated in follow-up today continuing to await for safe discharge planning. Per social work the go guardian is following up with patient's spouse in regard to financial situations as he is currently in a detention in the [facility] and not back home for another 2 weeks. Working on potentially applying for Medicaid for possible AFC. Patient is afebrile with no reports of chest pain or shortness of breath. Patient is tolerating diet. Patient needs frequently orienting in regards to rubbing and itching her face she continues to wash and scratch at her face multiple times throughout the day. Redness is improving from possible ALLERGIC reaction to lisinopril. Patient is on a prednisone taper and will titrate further. Encourage oral intake and will continue to monitor closely while awaiting for safe discharge planning. 02/22/2023 Patient evaluated today resting in bed with no acute complaints. Pending discharge planning with social work. Potassium improved currently 4.4. Review of Systems Constitutional: No reports of fatigue, denied any fever. Cardio vascular: denied any chest pain, palpitations Gastrointestinal: denied any nausea, vomiting, diarrhea Pulmonary: Denied any shortness of breath cough Neurologic denied any new focal deficits PHYSICAL EXAMINATION: GENERAL: The patient is alert and oriented x1. Anxious at times. Awake. cooperative. Well developed, well nourished. HEENT: Pupils are round and equally reacting to light. EOMI. No scleral icterus. No conjunctival pallor. Normocephalic, atraumatic. No pharyngeal erythema. No thyromegaly. CARDIOVASCULAR: S1 and S2 present. No murmurs, rubs, or gallops. PULMONARY: Chest is clear to auscultation, no wheezing or crackles. ABDOMEN: Soft, nontender, nondistended, normoactive bowel sounds. No palpable organomegaly. MUSCULOSKELETAL: No joint swelling or deformity. EXTREMITIES: No cyanosis, clubbing, or pedal edema. NEUROLOGICAL: Gross neurological examination did not reveal any focal deficits. Limited neurological exam because of her advanced dementia SKIN: No rashes. Mild redness noted of the face with some improvement. There is some dry very small patches noted on upper lip with flaking skin and there is no mouth edema or noted throat swelling or tongue swelling on exam Assessment: -Angioedema. Patient developed lip swelling overnight. Possibly ALLERGIC reaction to lisinopril. Lisinopril is on hold. Improving -Advanced dementia patient is presently not encephalopathic patient confusion is at her baseline. -Hypokalemia, improved -Hyponatremia, secondary to poor oral intake possible component of excessive water intake, improved -Anxiety disorder -Hypertension -DVT prophylaxis: Lovenox -GI prophylaxis: Protonix -Full Code Plan: Recommend to continue with current medications and management and blood pressure is controlled with Norvasc and will continue. Lisinopril has been discontinued Patient's redness is improving although patient has been excessively washing and rubbing her face making it difficult to assess. Patient does not have any lip swelling, tongue swelling or throat swelling noted on exam. Per nursing staff patient needs supervision with brushing her teeth and bathroom use as she continues to rub her face excessively. Patient denies any itching or swelling with no difficulty in swallowing or shortness of breath. Encouraged oral intake Social work continues to follow and has received a legal public guardian and currently awaiting AFC or ECF social work have been unable to contact spouse in regards to financial situations and informed guardian to contact about this. Apparently he remains in a detention at this time which is causing further delay on safe discharge planning. Patient is an elopement risk and at baseline alert and oriented 1 with advanced dementia Recommend continue current medication regimen Patient is medically stable for discharge pending DC planning with social work Prognosis guarded The impression and plan of care has been dictated by Balbina Omalley Nurse Practitioner as directed. Dr. Valentina MD I have performed a history and physical examination and medical decision making of this patient, discussed the same with the dictator, and agree with the dictators assessment and plan as written, documented as a scribe. Based on total visit time, I have performed more than 50% of this visit. Objective - Vital Signs Vital signs: Vital Signs Temp 97.2 F L 02/22/23 14:37 Pulse 67 02/22/23 14:37 Resp 17 02/22/23 14:37 BP 131/76 02/22/23 14:37 Pulse Ox 98 02/22/23 14:37 FiO2 Intake & Output 02/21/23 02/22/23 02/22/23 18:59 06:59 18:59 Intake Total 1000 Balance 1000 Intake: Oral 1000 Other: # Voids 6 3 2 - Labs CBC & Chem 7: 02/17/23 06:38 02/20/23 06:09 Assessment and Plan Time with Patient: Less than 30
[2023-02-22] MEDS: QUEtiapine 25 MG TAB PO PRN (22:11)
[2023-02-23] MEDS: amLODIPine 10 MG TAB PO SCH (08:25)
[2023-02-23] MEDS: DONEPEZIL 10 MG TAB PO SCH ×2 (08:25→20:47)
[2023-02-23] MEDS: predniSONE 10 MG TAB PO SCH (08:25)
[2023-02-23] MEDS: FAMOTIDINE 20 MG TAB PO SCH (08:25)
[2023-02-23] MEDS: diphenhydrAMINE 25 MG CAP PO PRN (08:25)
[2023-02-23] MEDS: ENOXAPARIN 40 MG/0.4 ML SYRINGE SQ SCH (08:25)
[2023-02-23] MEDS: ACETAMINOPHEN TAB 325 MG TAB PO PRN (10:08)
[2023-02-23] MEDS: ALPRAZolam 0.25 MG TAB PO PRN (10:08)
--- NOTE | 2023-02-23 13:52 | P.PN ---
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 Basic labs are essentially within normal limits. No significant abnormality was evident on chest x-ray and CT of the head 02/07/2023 Pending PT/OT evauation and placement. Hemodynamically stable. Discharge planning in progress with social work. Patient is evaluated today up in the chair with staff at the bedside. Patient is alert x 1 and pleasant with no acute complaints. APS services is following the patient. 02/08/2023 Patient unable to be discharged to subacute rehab yesterday as patient is pending guardianship with APS following and will require ECF on discharge. Patient remains alert x 1, pleasant does have difficulty findings words this is baseline with advanced dementia at baseline. Patient is asking about her today. Patient has no complaints at this time. 02/09/2023 Patient has no acute complaints overnight. Patient has been up ambulating in the room and dressed in street clothes. Patient is asking about discharge. May require legal guardian and also APS following with ECF needed on discharge. Patient has advanced dementia at baseline. 02/10/2023 Patient currently with no acute complaints. Alert x 1 today and pleasant. Pending guardianship and placement currently. Follow up with social work. 02/11/2023 Patient is seen and evaluated in follow-up currently sitting up in bed with no reports of nausea or vomiting noted. Patient reports tolerating diet. Patient denies chest pain or shortness of breath and currently awaiting possible guardianship hearing on Friday. Social work is involved and has been working with arranging for AFC availability as well as APS. Patient continues to be at her baseline alert and oriented 1 and is pleasant and cooperative. Will follow-up with repeat labs in a.m. 02/12/2023 Patient is seen and evaluated in follow-up today patient reports being tired although easily arousable. Patient is pleasantly confused and at her baseline with dementia. Follow-up labs show a potassium of 3.0 and will replace per protocol and repeat labs in the a.m. Patient is afebrile denies chest pain or shortness of breath. No reports of nausea or vomiting and patient is tolerating diet. Social work following along with APS and patient does have guardianship hearing on Friday. 02/13/2023 Patient is seen and evaluated in follow-up no acute overnight issues noted. Patient has a court hearing tomorrow for guardianship with social work following closely. Plan is for patient to go to AFC once guardianship hearing is settled. Patient is currently afebrile with no reports of chest pain or shortness of breath. Patient is tolerating diet and needs encouragement with oral intake. 02/14/2023 Patient is seen and evaluated in follow-up today currently awaiting a court hearing with social work today for guardianship. APS and social work following closely working on possible AFC for safe discharge planning. Patient is tolerating oral intake needs encouragement she eats very little with no reports of nausea or vomiting noted. Patient denies any chest pain or shortness of breath. Patient has been up and walking to the bathroom independently with no difficulties. Currently awaiting on possible AFC and will await court hearing to determine guardianship. 02/15/2023 Patient is currently lying in the bed. Awake alert but still confused. Able to walk to the bathroom. Denies any complaints of nausea vomiting or diarrhea. No complaints of chest pain or shortness of breath. Patient is awaiting court hearing for guardianship. blood pressure is controlled. No complaints of headache or dizziness or lightheadedness. Laboratory data reviewed. 02/16/2023 Patient is currently lying in the bed. Awake alert but confused. Mental status at baseline. Patient developed lip swelling overnight with redness extending to the face bilaterally. Denies any complaints of shortness of breath. No difficulty swallowing. No nausea vomiting or abdominal pain or diarrhea. Lisinopril is on hold. Patient is not on lisinopril at home. Continue with amlodipine 10 mg daily. Laboratory showed sodium 131 potassium 3.3 chloride 96 bicarb is 27 BUN 10 and creatinine 0.87 and calcium 9.2. 02/17/2023 Patient is seen in follow-up and reports no acute overnight issues. Patient maintained on steroids and lisinopril has been discontinued. Swelling of the face has improved although discontinuous redness. Patient reports she is not using anything other than lipstick Chapstick that she always uses. Patient reports to eating with no difficulties although needs encouragement and patient has been drinking excessive amounts of water per nursing staff. Recommend fluid restrictions and close monitoring. Sodium slightly lower at 129 and will follow-up with repeat labs. Patient is afebrile denies chest pain or palpitations. Patient denies shortness of breath and vital signs have been stable. 02/18/2023 Patient is seen and evaluated in follow-up today and being closely monitored. Patient continues to await guardianship decision on possible AFC and safe discharge planning and social work along with APS continuing to attempt to contact family which have been unsuccessful. Lisinopril being held and is showing improvement in swelling continues with some facial redness otherwise swelling has improved. We'll continue current regimen and monitor blood pressure closely. Potassium is 3.2 today and will replace per protocol and follow-up with repeat labs. Sodium has improved and is currently 133. Encouraged oral intake and will add supplements. 02/19/2023 Patient is seated evaluated in follow-up today with no acute overnight issues noted. Patient has not been sleeping very well per nursing staff and has been up most of the night throughout most of the day. Patient with social work following continuing to work with APS along with guardian in regards to safe discharge planning. Patient is afebrile denies chest pain or shortness of breath reports is tolerating diet and eating although needs encouragement and is continued on fluid retractions. Will follow-up with repeat potassium and replace per protocol if needed. 02/20/2023 Patient is seen and evaluated in follow-up in being closely monitored. Follow- up potassium improved to 4.2 and patient reports is tolerating oral intake. Patient denies chest pain or shortness of breath remains afebrile. Blood pressure stable and will continue current regimen. Patient continues to frequently wash and rub her face multiple times throughout the day per nursing staff and excessively rubbing since her concerns of ALLERGIC reaction. Patient denies any throat swelling, tongue swelling or difficulty breathing. Patient is maintaining oxygen saturations above 95% on room air. Patient is continued on prednisone and will continue to taper. Continue Benadryl as needed. Social work following continuing to work with by mouth guardian office as well as APS and safe discharge planning. 02/21/2023 Patient is seen and evaluated in follow-up today continuing to await for safe discharge planning. Per social work the go guardian is following up with patient's spouse in regard to financial situations as he is currently in a retirement in the [place] area and not back home for another 2 weeks. Working on potentially applying for Medicaid for possible AFC. Patient is afebrile with no reports of chest pain or shortness of breath. Patient is tolerating diet. Patient needs frequently orienting in regards to rubbing and itching her face she continues to wash and scratch at her face multiple times throughout the day. Redness is improving from possible ALLERGIC reaction to lisinopril. Patient is on a prednisone taper and will titrate further. Encourage oral intake and will continue to monitor closely while awaiting for safe discharge planning. 02/22/2023 Patient evaluated today resting in bed with no acute complaints. Pending discharge planning with social work. Potassium improved currently 4.4. 02/23/2023 Patient is evaluated today resting comfortably in bed with no acute complaints. Has been up ambulating in the room. Facial edema and redness has significantly improved patient has completed an oral steroid taper and remains off lisinopril at this time. Blood pressure currently 102/46 amlodipine is cut down. Pending discharge planning with social work and APS. Review of Systems Constitutional: No reports of fatigue, denied any fever. Cardio vascular: denied any chest pain, palpitations Gastrointestinal: denied any nausea, vomiting, diarrhea Pulmonary: Denied any shortness of breath cough Neurologic denied any new focal deficits PHYSICAL EXAMINATION: GENERAL: The patient is alert and oriented x1. Anxious at times. Awake. cooperative. Well developed, well nourished. HEENT: Pupils are round and equally reacting to light. EOMI. No scleral icterus. No conjunctival pallor. Normocephalic, atraumatic. No pharyngeal erythema. No thyromegaly. CARDIOVASCULAR: S1 and S2 present. No murmurs, rubs, or gallops. PULMONARY: Chest is clear to auscultation, no wheezing or crackles. ABDOMEN: Soft, nontender, nondistended, normoactive bowel sounds. No palpable organomegaly. MUSCULOSKELETAL: No joint swelling or deformity. EXTREMITIES: No cyanosis, clubbing, or pedal edema. NEUROLOGICAL: Gross neurological examination did not reveal any focal deficits. Limited neurological exam because of her advanced dementia SKIN: No rashes. Mild redness noted of the face with some improvement. There is some dry very small patches noted on upper lip with flaking skin and there is no mouth edema or noted throat swelling or tongue swelling on exam Assessment: -Angioedema. Patient developed lip swelling overnight. Possibly ALLERGIC reaction to lisinopril. Lisinopril is on hold. Improving -Advanced dementia patient is presently not encephalopathic patient confusion is at her baseline. -Hypokalemia, improved -Hyponatremia, secondary to poor oral intake possible component of excessive water intake, improved -Anxiety disorder -Hypertension -DVT prophylaxis: Lovenox -GI prophylaxis: Protonix -Full Code Plan: Recommend to continue with current medications and management and blood pressure is controlled with Norvasc and will continue. Lisinopril has been discontinued Patient's redness is improving although patient has been excessively washing and rubbing her face making it difficult to assess. Patient does not have any lip swelling, tongue swelling or throat swelling noted on exam. Per nursing staff patient needs supervision with brushing her teeth and bathroom use as she continues to rub her face excessively. Patient denies any itching or swelling with no difficulty in swallowing or shortness of breath. Encouraged oral intake Social work continues to follow and has received a legal public guardian and currently awaiting AFC or ECF social work have been unable to contact spouse in regards to financial situations and informed guardian to contact about this. Apparently he remains in a retirement at this time which is causing further delay on safe discharge planning. Patient is an elopement risk and at baseline alert and oriented 1 with advanced dementia Recommend continue current medication regimen Patient is medically stable for discharge pending DC planning with social work Prognosis guarded The impression and plan of care has been dictated by Balbina Omalley Nurse Practitioner as directed. Dr. Eloisa MD I have performed a history and physical examination and medical decision making of this patient, discussed the same with the dictator, and agree with the dictators assessment and plan as written, documented as a scribe. Based on total visit time, I have performed more than 50% of this visit. Objective - Vital Signs Vital signs: Vital Signs Temp 98.1 F 02/23/23 07:57 Pulse 54 L 02/23/23 07:57 Resp 19 02/23/23 07:57 BP 102/46 02/23/23 07:57 Pulse Ox 99 02/23/23 07:57 FiO2 Intake & Output 02/22/23 02/23/2323 18:59 06:59 18:59 Intake Total 250 Balance 250 Intake: Oral 250 Other: # Voids 1 1 # Bowel Movements 0 - Labs CBC & Chem 7: 02/17/23 06:38 02/20/23 06:09 Assessment and Plan Time with Patient: Less than 30
[2023-02-24] MEDS: FAMOTIDINE 20 MG TAB PO SCH (08:25)
[2023-02-24] MEDS: ENOXAPARIN 40 MG/0.4 ML SYRINGE SQ SCH (08:25)
[2023-02-24] MEDS: DONEPEZIL 10 MG TAB PO SCH ×2 (08:25→20:23)
[2023-02-24] MEDS: amLODIPine 2.5 MG TAB PO SCH (08:25)
[2023-02-24] MEDS: QUEtiapine 25 MG TAB PO PRN (22:33)
--- NOTE | 2023-02-25 05:04 | P.PN ---
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 Basic labs are essentially within normal limits. No significant abnormality was evident on chest x-ray and CT of the head 02/07/2023 Pending PT/OT evauation and placement. Hemodynamically stable. Discharge planning in progress with social work. Patient is evaluated today up in the chair with staff at the bedside. Patient is alert x 1 and pleasant with no acute complaints. APS services is following the patient. 02/08/2023 Patient unable to be discharged to subacute rehab yesterday as patient is pending guardianship with APS following and will require ECF on discharge. Patient remains alert x 1, pleasant does have difficulty findings words this is baseline with advanced dementia at baseline. Patient is asking about her today. Patient has no complaints at this time. 02/09/2023 Patient has no acute complaints overnight. Patient has been up ambulating in the room and dressed in street clothes. Patient is asking about discharge. May require legal guardian and also APS following with ECF needed on discharge. Patient has advanced dementia at baseline. 02/10/2023 Patient currently with no acute complaints. Alert x 1 today and pleasant. Pending guardianship and placement currently. Follow up with social work. 02/11/2023 Patient is seen and evaluated in follow-up currently sitting up in bed with no reports of nausea or vomiting noted. Patient reports tolerating diet. Patient denies chest pain or shortness of breath and currently awaiting possible guardianship hearing on Friday. Social work is involved and has been working with arranging for AFC availability as well as APS. Patient continues to be at her baseline alert and oriented 1 and is pleasant and cooperative. Will follow-up with repeat labs in a.m. 02/12/2023 Patient is seen and evaluated in follow-up today patient reports being tired although easily arousable. Patient is pleasantly confused and at her baseline with dementia. Follow-up labs show a potassium of 3.0 and will replace per protocol and repeat labs in the a.m. Patient is afebrile denies chest pain or s hortness of breath. No reports of nausea or vomiting and patient is tolerating diet. Social work following along with APS and patient does have guardianship hearing on Friday. 02/13/2023 Patient is seen and evaluated in follow-up no acute overnight issues noted. Patient has a court hearing tomorrow for guardianship with social work following closely. Plan is for patient to go to AFC once guardianship hearing is settled. Patient is currently afebrile with no reports of chest pain or shortness of breath. Patient is tolerating diet and needs encouragement with oral intake. 02/14/2023 Patient is seen and evaluated in follow-up today currently awaiting a court hearing with social work today for guardianship. APS and social work following closely working on possible AFC for safe discharge planning. Patient is tolerating oral intake needs encouragement she eats very little with no reports of nausea or vomiting noted. Patient denies any chest pain or shortness of breath. Patient has been up and walking to the bathroom independently with no difficulties. Currently awaiting on possible AFC and will await court hearing to determine guardianship. 02/15/2023 Patient is currently lying in the bed. Awake alert but still confused. Able to walk to the bathroom. Denies any complaints of nausea vomiting or diarrhea. No complaints of chest pain or shortness of breath. Patient is awaiting court hearing for guardianship. blood pressure is controlled. No complaints of headache or dizziness or lightheadedness. Laboratory data reviewed. 02/16/2023 Patient is currently lying in the bed. Awake alert but confused. Mental status at baseline. Patient developed lip swelling overnight with redness extending to the face bilaterally. Denies any complaints of shortness of breath. No difficulty swallowing. No nausea vomiting or abdominal pain or diarrhea. Lisinopril is on hold. Patient is not on lisinopril at home. Continue with amlodipine 10 mg daily. Laboratory showed sodium 131 potassium 3.3 chloride 96 bicarb is 27 BUN 10 and creatinine 0.87 and calcium 9.2. 02/17/2023 Patient is seen in follow-up and reports no acute overnight issues. Patient maintained on steroids and lisinopril has been discontinued. Swelling of the face has improved although discontinuous redness. Patient reports she is not using anything other than lipstick Chapstick that she always uses. Patient reports to eating with no difficulties although needs encouragement and patient has been drinking excessive amounts of water per nursing staff. Recommend fluid restrictions and close monitoring. Sodium slightly lower at 129 and will follow-up with repeat labs. Patient is afebrile denies chest pain or palpitations. Patient denies shortness of breath and vital signs have been stable. 02/18/2023 Patient is seen and evaluated in follow-up today and being closely monitored. Patient continues to await guardianship decision on possible AFC and safe discharge planning and social work along with APS continuing to attempt to contact family which have been unsuccessful. Lisinopril being held and is showing improvement in swelling continues with some facial redness otherwise swelling has improved. We'll continue current regimen and monitor blood pressure closely. Potassium is 3.2 today and will replace per protocol and follow-up with repeat labs. Sodium has improved and is currently 133. Encouraged oral intake and will add supplements. 02/19/2023 Patient is seated evaluated in follow-up today with no acute overnight issues noted. Patient has not been sleeping very well per nursing staff and has been up most of the night throughout most of the day. Patient with social work following continuing to work with APS along with guardian in regards to safe discharge planning. Patient is afebrile denies chest pain or shortness of breath reports is tolerating diet and eating although needs encouragement and is continued on fluid retractions. Will follow-up with repeat potassium and replace per protocol if needed. 02/20/2023 Patient is seen and evaluated in follow-up in being closely monitored. Follow- up potassium improved to 4.2 and patient reports is tolerating oral intake. Patient denies chest pain or shortness of breath remains afebrile. Blood pressure stable and will continue current regimen. Patient continues to frequently wash and rub her face multiple times throughout the day per nursing staff and excessively rubbing since her concerns of ALLERGIC reaction. Patient denies any throat swelling, tongue swelling or difficulty breathing. Patient is maintaining oxygen saturations above 95% on room air. Patient is continued on prednisone and will continue to taper. Continue Benadryl as needed. Social work following continuing to work with by mouth guardian office as well as APS and safe discharge planning. 02/21/2023 Patient is seen and evaluated in follow-up today continuing to await for safe discharge planning. Per social work the go guardian is following up with patient's spouse in regard to financial situations as he is currently in a shelter in the [facility] and not back home for another 2 weeks. Working on potentially applying for Medicaid for possible AFC. Patient is afebrile with no reports of chest pain or shortness of breath. Patient is tolerating diet. Patient needs frequently orienting in regards to rubbing and itching her face she continues to wash and scratch at her face multiple times throughout the day. Redness is improving from possible ALLERGIC reaction to lisinopril. Patient is on a prednisone taper and will titrate further. Encourage oral intake and will continue to monitor closely while awaiting for safe discharge planning. 02/22/2023 Patient evaluated today resting in bed with no acute complaints. Pending discharge planning with social work. Potassium improved currently 4.4. 02/23/2023 Patient is evaluated today resting comfortably in bed with no acute complaints. Has been up ambulating in the room. Facial edema and redness has significantly improved patient has completed an oral steroid taper and remains off lisinopril at this time. Blood pressure currently 102/46 amlodipine is cut down. Pending discharge planning with social work and APS. 02/24/2023 Patient is seen and evaluated in follow-up this morning and per social work today is an observed holiday and APS guardian's office are closed. Social work will follow-up in the a.m. regards to possible medication application and discharge planning moving forward. Patient's spouse would like her to return home when he returns from shelter was not home. Patient is afebrile with no reports of chest pain or shortness of breath. Patient is tolerating diet with no reports of nausea or vomiting noted. Will continue to monitor closely while working with social media executive, safe discharge plan. Review of Systems Constitutional: No reports of fatigue, denied any fever. Cardio vascular: denied any chest pain, palpitations Gastrointestinal: denied any nausea, vomiting, diarrhea Pulmonary: Denied any shortness of breath cough Neurologic denied any new focal deficits PHYSICAL EXAMINATION: GENERAL: The patient is alert and oriented x1. Anxious at times. Awake. cooperative. Well developed, well nourished. HEENT: Pupils are round and equally reacting to light. EOMI. No scleral icterus. No conjunctival pallor. Normocephalic, atraumatic. No pharyngeal erythema. No thyromegaly. CARDIOVASCULAR: S1 and S2 present. No murmurs, rubs, or gallops. PULMONARY: Chest is clear to auscultation, no wheezing or crackles. ABDOMEN: Soft, nontender, nondistended, normoactive bowel sounds. No palpable organomegaly. MUSCULOSKELETAL: No joint swelling or deformity. EXTREMITIES: No cyanosis, clubbing, or pedal edema. NEUROLOGICAL: Gross neurological examination did not reveal any focal deficits. Limited neurological exam because of her advanced dementia SKIN: No rashes. Mild redness noted of the face has improved. Assessment: -Angioedema. Patient developed lip swelling overnight. Possibly ALLERGIC reaction to lisinopril. Lisinopril is on hold. Improving -Advanced dementia patient is presently not encephalopathic patient confusion is at her baseline. -Hypokalemia, improved -Hyponatremia, secondary to poor oral intake possible component of excessive water intake, improved -Anxiety disorder -Hypertension -DVT prophylaxis: Lovenox -GI prophylaxis: Protonix -Full Code Plan: Recommend to continue with current medications and management and blood pressure is controlled with Norvasc and will continue. Lisinopril has been discontinued Patient's redness is improving although patient has been excessively washing and rubbing her face making it difficult to assess. Patient does not have any lip swelling, tongue swelling or throat swelling noted on exam. Per nursing staff patient needs supervision with brushing her teeth and bathroom use as she continues to rub her face excessively. Patient denies any itching or swelling with no difficulty in swallowing or shortness of breath. Patient has completed prednisone taper Encouraged oral intake Social work continues to follow and has received a legal public guardian and currently awaiting AFC or ECF. Today's an observed holiday so APS and guardian's office are closed and social work will follow-up in a.m. Social work was able to contact spouse in regards to financial situations and guardian's office has contacted him as well. Apparently he remains in a shelter at this time which is causing further delay on safe discharge planning. Patient is an elopement risk and at baseline alert and oriented 1 with advanced dementia Recommend continue current medication regimen Patient is medically stable for discharge pending DC planning with social work Prognosis guarded The impression and plan of care has been dictated by Pepper Pablo, Nurse Practitioner as directed. Dr. Jimmy MD I have performed a history and examination and MDM of this patient, discussed the same with the dictator, and agree with the dictator's assessment and plan as written ,documented as a scribe. Based on total visit time, I have performed more than 50% of the visit. Objective - Vital Signs Vital signs: Vital Signs Temp 98.3 F 02/24/23 13:20 Pulse 56 L 02/24/23 13:20 Resp 15 02/24/23 13:20 BP 109/64 02/24/23 13:20 Pulse Ox 99 02/24/23 13:20 FiO2 Intake & Output 02/23/23 02/24/23 02/24/23 18:59 06:59 18:59 Intake Total 500 480 Balance 500 480 Intake: Oral 500 480 Other: Voiding Method Toilet # Voids 3 3 - Labs CBC & Chem 7: 02/17/23 06:38 02/20/23 06:09
[2023-02-25] MEDS: DONEPEZIL 10 MG TAB PO SCH ×2 (08:26→19:15)
[2023-02-25] MEDS: amLODIPine 2.5 MG TAB PO SCH (08:26)
[2023-02-25] MEDS: FAMOTIDINE 20 MG TAB PO SCH (08:26)
[2023-02-25] MEDS: ENOXAPARIN 40 MG/0.4 ML SYRINGE SQ SCH (08:26)
[2023-02-25] MEDS: PANTOPRAZOLE 40 MG TABLET PO SCH (12:11)
[2023-02-25] MEDS: ALPRAZolam 0.25 MG TAB PO PRN (12:11)
--- NOTE | 2023-02-25 14:28 | P.PN ---
Subjective Progress Note Date: 02/25/23 72-year-old pleasant female with advanced dementia probably dementia of Alzheimer's type was brought in by the family members as her was a weight guesser is hospitalized at [facility] patient denied any symptoms at this time patient is unable to provide much of the history patient is alert oriented 1 but pleasant. Basic labs are essentially within normal limits. No significant abnormality was evident on chest x-ray and CT of the head 02/07/2023 Pending PT/OT evauation and placement. Hemodynamically stable. Discharge planning in progress with social work. Patient is evaluated today up in the chair with staff at the bedside. Patient is alert x 1 and pleasant with no acute complaints. APS services is following the patient. 02/08/2023 Patient unable to be discharged to subacute rehab yesterday as patient is pending guardianship with APS following and will require ECF on discharge. Patient remains alert x 1, pleasant does have difficulty findings words this is baseline with advanced dementia at baseline. Patient is asking about her today. Patient has no complaints at this time. 02/09/2023 Patient has no acute complaints overnight. Patient has been up ambulating in the room and dressed in street clothes. Patient is asking about discharge. May require legal guardian and also APS following with ECF needed on discharge. Patient has advanced dementia at baseline. 02/10/2023 Patient currently with no acute complaints. Alert x 1 today and pleasant. Pending guardianship and placement currently. Follow up with social work. 02/11/2023 Patient is seen and evaluated in follow-up currently sitting up in bed with no reports of nausea or vomiting noted. Patient reports tolerating diet. Patient denies chest pain or shortness of breath and currently awaiting possible guardianship hearing on Friday. Social work is involved and has been working with arranging for AFC availability as well as APS. Patient continues to be at her baseline alert and oriented 1 and is pleasant and cooperative. Will follow-up with repeat labs in a.m. 02/12/2023 Patient is seen and evaluated in follow-up today patient reports being tired although easily arousable. Patient is pleasantly confused and at her baseline with dementia. Follow-up labs show a potassium of 3.0 and will replace per protocol and repeat labs in the a.m. Patient is afebrile denies chest pain or s hortness of breath. No reports of nausea or vomiting and patient is tolerating diet. Social work following along with APS and patient does have guardianship hearing on Friday. 02/13/2023 Patient is seen and evaluated in follow-up no acute overnight issues noted. Patient has a court hearing tomorrow for guardianship with social work following closely. Plan is for patient to go to AFC once guardianship hearing is settled. Patient is currently afebrile with no reports of chest pain or shortness of breath. Patient is tolerating diet and needs encouragement with oral intake. 02/14/2023 Patient is seen and evaluated in follow-up today currently awaiting a court hearing with social work today for guardianship. APS and social work following closely working on possible AFC for safe discharge planning. Patient is tolerating oral intake needs encouragement she eats very little with no reports of nausea or vomiting noted. Patient denies any chest pain or shortness of breath. Patient has been up and walking to the bathroom independently with no difficulties. Currently awaiting on possible AFC and will await court hearing to determine guardianship. 02/15/2023 Patient is currently lying in the bed. Awake alert but still confused. Able to walk to the bathroom. Denies any complaints of nausea vomiting or diarrhea. No complaints of chest pain or shortness of breath. Patient is awaiting court hearing for guardianship. blood pressure is controlled. No complaints of headache or dizziness or lightheadedness. Laboratory data reviewed. 02/16/2023 Patient is currently lying in the bed. Awake alert but confused. Mental status at baseline. Patient developed lip swelling overnight with redness extending to the face bilaterally. Denies any complaints of shortness of breath. No difficulty swallowing. No nausea vomiting or abdominal pain or diarrhea. Lisinopril is on hold. Patient is not on lisinopril at home. Continue with amlodipine 10 mg daily. Laboratory showed sodium 131 potassium 3.3 chloride 96 bicarb is 27 BUN 10 and creatinine 0.87 and calcium 9.2. 02/17/2023 Patient is seen in follow-up and reports no acute overnight issues. Patient maintained on steroids and lisinopril has been discontinued. Swelling of the face has improved although discontinuous redness. Patient reports she is not using anything other than lipstick Chapstick that she always uses. Patient reports to eating with no difficulties although needs encouragement and patient has been drinking excessive amounts of water per nursing staff. Recommend fluid restrictions and close monitoring. Sodium slightly lower at 129 and will follow-up with repeat labs. Patient is afebrile denies chest pain or palpitations. Patient denies shortness of breath and vital signs have been stable. 02/18/2023 Patient is seen and evaluated in follow-up today and being closely monitored. Patient continues to await guardianship decision on possible AFC and safe discharge planning and social work along with APS continuing to attempt to contact family which have been unsuccessful. Lisinopril being held and is showing improvement in swelling continues with some facial redness otherwise swelling has improved. We'll continue current regimen and monitor blood pressure closely. Potassium is 3.2 today and will replace per protocol and follow-up with repeat labs. Sodium has improved and is currently 133. Encouraged oral intake and will add supplements. 02/19/2023 Patient is seated evaluated in follow-up today with no acute overnight issues noted. Patient has not been sleeping very well per nursing staff and has been up most of the night throughout most of the day. Patient with social work following continuing to work with APS along with guardian in regards to safe discharge planning. Patient is afebrile denies chest pain or shortness of breath reports is tolerating diet and eating although needs encouragement and is continued on fluid retractions. Will follow-up with repeat potassium and replace per protocol if needed. 02/20/2023 Patient is seen and evaluated in follow-up in being closely monitored. Follow- up potassium improved to 4.2 and patient reports is tolerating oral intake. Patient denies chest pain or shortness of breath remains afebrile. Blood pressure stable and will continue current regimen. Patient continues to frequently wash and rub her face multiple times throughout the day per nursing staff and excessively rubbing since her concerns of ALLERGIC reaction. Patient denies any throat swelling, tongue swelling or difficulty breathing. Patient is maintaining oxygen saturations above 95% on room air. Patient is continued on prednisone and will continue to taper. Continue Benadryl as needed. Social work following continuing to work with by mouth guardian office as well as APS and safe discharge planning. 02/21/2023 Patient is seen and evaluated in follow-up today continuing to await for safe discharge planning. Per social work the go guardian is following up with patient's spouse in regard to financial situations as he is currently in a half-way in the [facility] and not back home for another 2 weeks. Working on potentially applying for Medicaid for possible AFC. Patient is afebrile with no reports of chest pain or shortness of breath. Patient is tolerating diet. Patient needs frequently orienting in regards to rubbing and itching her face she continues to wash and scratch at her face multiple times throughout the day. Redness is improving from possible ALLERGIC reaction to lisinopril. Patient is on a prednisone taper and will titrate further. Encourage oral intake and will continue to monitor closely while awaiting for safe discharge planning. 02/22/2023 Patient evaluated today resting in bed with no acute complaints. Pending discharge planning with social work. Potassium improved currently 4.4. 02/23/2023 Patient is evaluated today resting comfortably in bed with no acute complaints. Has been up ambulating in the room. Facial edema and redness has significantly improved patient has completed an oral steroid taper and remains off lisinopril at this time. Blood pressure currently 102/46 amlodipine is cut down. Pending discharge planning with social work and APS. 02/24/2023 Patient is seen and evaluated in follow-up this morning and per social work today is an observed holiday and APS guardian's office are closed. Social work will follow-up in the a.m. regards to possible medication application and discharge planning moving forward. Patient's spouse would like her to return home when he returns from half-way was not home. Patient is afebrile with no reports of chest pain or shortness of breath. Patient is tolerating diet with no reports of nausea or vomiting noted. Will continue to monitor closely while working with social media content specialist, safe discharge plan. 02/25/2023 Patient is seen and evaluated in follow-up today and reports some mild abdominal discomfort likely gastritis and will add Protonix twice daily. Patient continues to await safe discharge planning with social work following and working with legal guardian that was obtained. Attempting to apply for Medicaid for AFC. Patient is afebrile with no reports of chest pain or shortness of breath noted. Patient is tolerating diet and needs encouragement. Recommend ensure supplements in between meals. Would also encourage and recommend nursing staff walking the patient frequently around the unit daily. Will follow up with social work. Review of Systems Constitutional: No reports of fatigue, denied any fever. Cardio vascular: denied any chest pain, palpitations Gastrointestinal: denied any nausea, vomiting, diarrhea, reports some abdominal discomfort Pulmonary: Denied any shortness of breath cough Neurologic denied any new focal deficits PHYSICAL EXAMINATION: GENERAL: The patient is alert and oriented x1. Anxious at times. Awake. cooperative. Well developed, well nourished. HEENT: Pupils are round and equally reacting to light. EOMI. No scleral icterus. No conjunctival pallor. Normocephalic, atraumatic. No pharyngeal erythema. No thyromegaly. CARDIOVASCULAR: S1 and S2 present. No murmurs, rubs, or gallops. PULMONARY: Chest is clear to auscultation, no wheezing or crackles. ABDOMEN: Soft, nontender, nondistended, normoactive bowel sounds. No palpable organomegaly. MUSCULOSKELETAL: No joint swelling or deformity. EXTREMITIES: No cyanosis, clubbing, or pedal edema. NEUROLOGICAL: Gross neurological examination did not reveal any focal deficits. Limited neurological exam because of her advanced dementia SKIN: No rashes. Mild redness noted of the face has improved. Assessment: -Angioedema. Patient developed lip swelling overnight. Possibly ALLERGIC reaction to lisinopril. Lisinopril is on hold. Improving -Advanced dementia patient is presently not encephalopathic patient confusion is at her baseline. -Acute abdominal pain with dyspepsia, likely gastritis -Hypokalemia, improved -Hyponatremia, secondary to poor oral intake possible component of excessive water intake, improved -Anxiety disorder -Hypertension -DVT prophylaxis: Lovenox -GI prophylaxis: Protonix -Full Code Plan: Recommend to continue with current medications and management and will add Protonix twice daily as patient is having an upset stomach. Encourage supplements between meals and oral intake Would recommend walking around the unit frequent times with staff and continued reorientation Social work is following and to discuss with legal guardian about possibly applying for Medicaid application to determine and figure out safe discharge plan to [facility]. whom she normally resides with is currently in a half-way as he was hospitalized requiring ECF on discharge. Per social work he reports he would like to take the patient home once he is home and is agreeable to work with APS to evaluate the home. Patient is an elopement risk and at baseline alert and oriented 1 with advanced dementia Recommend continue current medication regimen Patient is medically stable for discharge and awaiting to speak further with legal guardian and social work in regards to safe discharge with possible AFC although needs to apply for Medicaid. Pending at this time. Prognosis guarded The impression and plan of care has been dictated by Pepper Pablo Nurse Pra ctitioner as directed. Dr. Jimmy MD I have performed a history and examination and MDM of this patient, discussed the same with the dictator, and agree with the dictator's assessment and plan as written ,documented as a scribe. Based on total visit time, I have performed more than 50% of the visit. Objective - Vital Signs Vital signs: Vital Signs Temp 98.2 F 02/25/23 07:45 Pulse 57 L 02/25/23 07:56 Resp 15 02/25/23 07:56 BP 120/73 02/25/23 07:45 Pulse Ox 96 02/25/23 07:45 FiO2 Intake & Output 02/24/23 02/25/23 02/25/23 18:59 06:59 18:59 Intake Total 120 Output Total 0 Balance 120 0 Intake: Oral 120 Output: Stool 0 Other: Voiding Method Toilet Toilet # Voids 6 3 - Labs CBC & Chem 7: 02/17/23 06:38 02/20/23 06:09
[2023-02-26] MEDS: PANTOPRAZOLE 40 MG TABLET PO SCH ×2 (06:02→17:04)
[2023-02-26] MEDS: amLODIPine 2.5 MG TAB PO SCH (08:03)
[2023-02-26] MEDS: DONEPEZIL 10 MG TAB PO SCH ×2 (08:03→20:46)
[2023-02-26] MEDS: FAMOTIDINE 20 MG TAB PO SCH (08:04)
[2023-02-26] MEDS: ENOXAPARIN 40 MG/0.4 ML SYRINGE SQ SCH (08:04)
[2023-02-26] MEDS: ACETAMINOPHEN TAB 325 MG TAB PO PRN (09:03)
[2023-02-26] MEDS: ALPRAZolam 0.25 MG TAB PO PRN (10:32)
[2023-02-26 12:23] VITALS: BMI 22.8
--- NOTE | 2023-02-26 13:14 | P.PN ---
Subjective Progress Note Date: 02/26/23 72-year-old pleasant female with advanced dementia probably dementia of Alzheimer's type was brought in by the family members as her was a phone counselor is hospitalized at [facility] patient denied any symptoms at this time patient is unable to provide much of the history patient is alert oriented 1 but pleasant. Basic labs are essentially within normal limits. No significant abnormality was evident on chest x-ray and CT of the head 02/07/2023 Pending PT/OT evauation and placement. Hemodynamically stable. Discharge planning in progress with social work. Patient is evaluated today up in the chair with staff at the bedside. Patient is alert x 1 and pleasant with no acute complaints. APS services is following the patient. 02/08/2023 Patient unable to be discharged to subacute rehab yesterday as patient is pending guardianship with APS following and will require ECF on discharge. Patient remains alert x 1, pleasant does have difficulty findings words this is baseline with advanced dementia at baseline. Patient is asking about her today. Patient has no complaints at this time. 02/09/2023 Patient has no acute complaints overnight. Patient has been up ambulating in the room and dressed in street clothes. Patient is asking about discharge. May require legal guardian and also APS following with ECF needed on discharge. Patient has advanced dementia at baseline. 02/10/2023 Patient currently with no acute complaints. Alert x 1 today and pleasant. Pending guardianship and placement currently. Follow up with social work. 02/11/2023 Patient is seen and evaluated in follow-up currently sitting up in bed with no reports of nausea or vomiting noted. Patient reports tolerating diet. Patient denies chest pain or shortness of breath and currently awaiting possible guardianship hearing on Friday. Social work is involved and has been working with arranging for [facility] availability as well as APS. Patient continues to be at her baseline alert and oriented 1 and is pleasant and cooperative. Will follow-up with repeat labs in a.m. 02/12/2023 Patient is seen and evaluated in follow-up today patient reports being tired although easily arousable. Patient is pleasantly confused and at her baseline with dementia. Follow-up labs show a potassium of 3.0 and will replace per protocol and repeat labs in the a.m. Patient is afebrile denies chest pain or s hortness of breath. No reports of nausea or vomiting and patient is tolerating diet. Social work following along with APS and patient does have guardianship hearing on Friday. 02/13/2023 Patient is seen and evaluated in follow-up no acute overnight issues noted. Patient has a court hearing tomorrow for guardianship with social work following closely. Plan is for patient to go to [facility] once guardianship hearing is settled. Patient is currently afebrile with no reports of chest pain or shortness of breath. Patient is tolerating diet and needs encouragement with oral intake. 02/14/2023 Patient is seen and evaluated in follow-up today currently awaiting a court hearing with social work today for guardianship. APS and social work following closely working on possible [facility] for safe discharge planning. Patient is tolerating oral intake needs encouragement she eats very little with no reports of nausea or vomiting noted. Patient denies any chest pain or shortness of breath. Patient has been up and walking to the bathroom independently with no difficulties. Currently awaiting on possible [facility] and will await court hearing to determine guardianship. 02/15/2023 Patient is currently lying in the bed. Awake alert but still confused. Able to walk to the bathroom. Denies any complaints of nausea vomiting or diarrhea. No complaints of chest pain or shortness of breath. Patient is awaiting court hearing for guardianship. blood pressure is controlled. No complaints of headache or dizziness or lightheadedness. Laboratory data reviewed. 02/16/2023 Patient is currently lying in the bed. Awake alert but confused. Mental status at baseline. Patient developed lip swelling overnight with redness extending to the face bilaterally. Denies any complaints of shortness of breath. No difficulty swallowing. No nausea vomiting or abdominal pain or diarrhea. Lisinopril is on hold. Patient is not on lisinopril at home. Continue with amlodipine 10 mg daily. Laboratory showed sodium 131 potassium 3.3 chloride 96 bicarb is 27 BUN 10 and creatinine 0.87 and calcium 9.2. 02/17/2023 Patient is seen in follow-up and reports no acute overnight issues. Patient maintained on steroids and lisinopril has been discontinued. Swelling of the face has improved although discontinuous redness. Patient reports she is not using anything other than lipstick Chapstick that she always uses. Patient reports to eating with no difficulties although needs encouragement and patient has been drinking excessive amounts of water per nursing staff. Recommend fluid restrictions and close monitoring. Sodium slightly lower at 129 and will follow-up with repeat labs. Patient is afebrile denies chest pain or palpitations. Patient denies shortness of breath and vital signs have been stable. 02/18/2023 Patient is seen and evaluated in follow-up today and being closely monitored. Patient continues to await guardianship decision on possible [facility] and safe discharge planning and social work along with APS continuing to attempt to contact family which have been unsuccessful. Lisinopril being held and is showing improvement in swelling continues with some facial redness otherwise swelling has improved. We'll continue current regimen and monitor blood pressure closely. Potassium is 3.2 today and will replace per protocol and follow-up with repeat labs. Sodium has improved and is currently 133. Encouraged oral intake and will add supplements. 02/19/2023 Patient is seated evaluated in follow-up today with no acute overnight issues noted. Patient has not been sleeping very well per nursing staff and has been up most of the night throughout most of the day. Patient with social work following continuing to work with APS along with guardian in regards to safe discharge planning. Patient is afebrile denies chest pain or shortness of breath reports is tolerating diet and eating although needs encouragement and is continued on fluid retractions. Will follow-up with repeat potassium and replace per protocol if needed. 02/20/2023 Patient is seen and evaluated in follow-up in being closely monitored. Follow- up potassium improved to 4.2 and patient reports is tolerating oral intake. Patient denies chest pain or shortness of breath remains afebrile. Blood pressure stable and will continue current regimen. Patient continues to frequently wash and rub her face multiple times throughout the day per nursing staff and excessively rubbing since her concerns of ALLERGIC reaction. Patient denies any throat swelling, tongue swelling or difficulty breathing. Patient is maintaining oxygen saturations above 95% on room air. Patient is continued on prednisone and will continue to taper. Continue Benadryl as needed. Social work following continuing to work with by mouth guardian office as well as APS and safe discharge planning. 02/21/2023 Patient is seen and evaluated in follow-up today continuing to await for safe discharge planning. Per social work the go guardian is following up with patient's spouse in regard to financial situations as he is currently in a snf in the [facility] and not back home for another 2 weeks. Working on potentially applying for Medicaid for possible [facility]. Patient is afebrile with no reports of chest pain or shortness of breath. Patient is tolerating diet. Patient needs frequently orienting in regards to rubbing and itching her face she continues to wash and scratch at her face multiple times throughout the day. Redness is improving from possible ALLERGIC reaction to lisinopril. Patient is on a prednisone taper and will titrate further. Encourage oral intake and will continue to monitor closely while awaiting for safe discharge planning. 02/22/2023 Patient evaluated today resting in bed with no acute complaints. Pending discharge planning with social work. Potassium improved currently 4.4. 02/23/2023 Patient is evaluated today resting comfortably in bed with no acute complaints. Has been up ambulating in the room. Facial edema and redness has significantly improved patient has completed an oral steroid taper and remains off lisinopril at this time. Blood pressure currently 102/46 amlodipine is cut down. Pending discharge planning with social work and APS. 02/24/2023 Patient is seen and evaluated in follow-up this morning and per social work today is an observed holiday and APS guardian's office are closed. Social work will follow-up in the a.m. regards to possible medication application and discharge planning moving forward. Patient's spouse would like her to return home when he returns from snf was not home. Patient is afebrile with no reports of chest pain or shortness of breath. Patient is tolerating diet with no reports of nausea or vomiting noted. Will continue to monitor closely while working with nursing home social worker, safe discharge plan. 02/25/2023 Patient is seen and evaluated in follow-up today and reports some mild abdominal discomfort likely gastritis and will add Protonix twice daily. Patient continues to await safe discharge planning with social work following and working with legal guardian that was obtained. Attempting to apply for Medicaid for [facility]. Patient is afebrile with no reports of chest pain or shortness of breath noted. Patient is tolerating diet and needs encouragement. Recommend ensure supplements in between meals. Would also encourage and recommend nursing staff walking the patient frequently around the unit daily. Will follow up with social work. 02/26/2023 Patient is seen and evaluated in follow-up reports her abdominal discomfort has improved occasionally have some mild cramping noted on the left side. Patient reports is having bowel movements and passing gas and patient denies any pain or burning or frequency with urination. Patient is afebrile and vital signs are stable. Social work following closely working with guardianship office in attempts to apply for Medicaid and continuing to await safe discharge plan. Patient is becoming increasingly more restless medication and wants to go home. Reinforced to the patient is a very slow process regarding insurance, guardianship, social issues. Patient is very pleasant and cooperative. Review of Systems Constitutional: No reports of fatigue, denied any fever. Cardio vascular: denied any chest pain, palpitations Gastrointestinal: denied any nausea, vomiting, diarrhea, reports some abdominal discomfortOn the left that has improved slightly Pulmonary: Denied any shortness of breath cough Neurologic denied any new focal deficits PHYSICAL EXAMINATION: GENERAL: The patient is alert and oriented x1. Anxious at times. Awake. cooperative. Well developed, well nourished. HEENT: Pupils are round and equally reacting to light. EOMI. No scleral icterus. No conjunctival pallor. Normocephalic, atraumatic. No pharyngeal erythema. No thyromegaly. CARDIOVASCULAR: S1 and S2 present. No murmurs, rubs, or gallops. PULMONARY: Chest is clear to auscultation, no wheezing or crackles. ABDOMEN: Soft, nontender, nondistended, normoactive bowel sounds. No palpable organomegaly. MUSCULOSKELETAL: No joint swelling or deformity. EXTREMITIES: No cyanosis, clubbing, or pedal edema. NEUROLOGICAL: Gross neurological examination did not reveal any focal deficits. Limited neurological exam because of her advanced dementia SKIN: No rashes. Mild redness noted of the face has improved. Assessment: -Angioedema. Patient developed lip swelling overnight. Possibly ALLERGIC reaction to lisinopril. Lisinopril discontinued , improved -Advanced dementia patient is presently not encephalopathic patient confusion is at her baseline. -Acute abdominal pain with dyspepsia, likely gastritis, Improving -Hypokalemia, improved -Hyponatremia, secondary to poor oral intake possible component of excessive water intake, improved -Anxiety disorder -Hypertension -DVT prophylaxis: Lovenox -GI prophylaxis: Protonix -Full Code Plan: Recommend to continue with current medications and management andhave added Protonix twice daily as patient is having an upset stomach. Encourage supplements between meals and oral intake Would recommend walking around the unit frequent times with staff and continued reorientation Social work is following and to discuss with legal guardian about possibly applying for Medicaid application to determine and figure out safe discharge plan to [facility]. whom she normally resides with is currently in a snf as he was hospitalized requiring ECF on discharge. Per social work he reports he would like to take the patient home once he is home and is agreeable to work with APS to evaluate the home. Patient is an elopement risk and at baseline alert and oriented 1 with advanced dementia Recommend continue current medication regimen Patient is having some increased anxiety at times wanting to go home and will add low-dose anxiety med as needed Patient is medically stable for discharge and awaiting to speak further with legal guardian and social work in regards to safe discharge with possible [facility] although needs to apply for Medicaid. Pending at this time. Prognosis guarded The impression and plan of care has been dictated by Pepper Pablo, Nurse Practitioner as directed. Dr. Jimmy MD I have performed a history and examination and MDM of this patient, discussed the same with the dictator, and agree with the dictator's assessment and plan as written ,documented as a scribe. Based on total visit time, I have performed more than 50% of the visit. Objective - Vital Signs Vital signs: Vital Signs Temp 98.2 F 02/26/23 07:16 Pulse 61 02/26/23 07:16 Resp 18 02/26/23 07:16 BP 131/87 02/26/23 07:16 Pulse Ox 100 02/26/23 07:16 FiO2 Intake & Output 02/25/23 02/26/23 02/26/23 18:59 06:59 18:59 Intake Total 120 Output Total 0 Balance 0 120 Weight 60.2 kg Intake: Oral 120 Output: Stool 0 Other: Voiding Method Toilet # Voids 2 1 # Bowel Movements 1 - Labs CBC & Chem 7: 02/17/23 06:38 02/20/23 06:09
[2023-02-26] MEDS: LORazepam 0.5 MG TAB PO PRN (20:46)
[2023-02-27] MEDS: PANTOPRAZOLE 40 MG TABLET PO SCH ×2 (06:11→18:14)
[2023-02-27] MEDS: FAMOTIDINE 20 MG TAB PO SCH (09:46)
[2023-02-27] MEDS: DONEPEZIL 10 MG TAB PO SCH ×2 (09:46→20:30)
[2023-02-27] MEDS: ENOXAPARIN 40 MG/0.4 ML SYRINGE SQ SCH (09:46)
[2023-02-27] MEDS: amLODIPine 2.5 MG TAB PO SCH (09:46)
--- NOTE | 2023-02-27 16:03 | P.PN ---
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 Basic labs are essentially within normal limits. No significant abnormality was evident on chest x-ray and CT of the head 02/07/2023 Pending PT/OT evauation and placement. Hemodynamically stable. Discharge planning in progress with social work. Patient is evaluated today up in the chair with staff at the bedside. Patient is alert x 1 and pleasant with no acute complaints. APS services is following the patient. 02/08/2023 Patient unable to be discharged to subacute rehab yesterday as patient is pending guardianship with APS following and will require ECF on discharge. Patient remains alert x 1, pleasant does have difficulty findings words this is baseline with advanced dementia at baseline. Patient is asking about her today. Patient has no complaints at this time. 02/09/2023 Patient has no acute complaints overnight. Patient has been up ambulating in the room and dressed in street clothes. Patient is asking about discharge. May require legal guardian and also APS following with ECF needed on discharge. Patient has advanced dementia at baseline. 02/10/2023 Patient currently with no acute complaints. Alert x 1 today and pleasant. Pending guardianship and placement currently. Follow up with social work. 02/11/2023 Patient is seen and evaluated in follow-up currently sitting up in bed with no reports of nausea or vomiting noted. Patient reports tolerating diet. Patient denies chest pain or shortness of breath and currently awaiting possible guardianship hearing on Friday. Social work is involved and has been working with arranging for AFC availability as well as APS. Patient continues to be at her baseline alert and oriented 1 and is pleasant and cooperative. Will follow-up with repeat labs in a.m. 02/12/2023 Patient is seen and evaluated in follow-up today patient reports being tired although easily arousable. Patient is pleasantly confused and at her baseline with dementia. Follow-up labs show a potassium of 3.0 and will replace per protocol and repeat labs in the a.m. Patient is afebrile denies chest pain or s hortness of breath. No reports of nausea or vomiting and patient is tolerating diet. Social work following along with APS and patient does have guardianship hearing on Friday. 02/13/2023 Patient is seen and evaluated in follow-up no acute overnight issues noted. Patient has a court hearing tomorrow for guardianship with social work following closely. Plan is for patient to go to AFC once guardianship hearing is settled. Patient is currently afebrile with no reports of chest pain or shortness of breath. Patient is tolerating diet and needs encouragement with oral intake. 02/14/2023 Patient is seen and evaluated in follow-up today currently awaiting a court hearing with social work today for guardianship. APS and social work following closely working on possible AFC for safe discharge planning. Patient is tolerating oral intake needs encouragement she eats very little with no reports of nausea or vomiting noted. Patient denies any chest pain or shortness of breath. Patient has been up and walking to the bathroom independently with no difficulties. Currently awaiting on possible AFC and will await court hearing to determine guardianship. 02/15/2023 Patient is currently lying in the bed. Awake alert but still confused. Able to walk to the bathroom. Denies any complaints of nausea vomiting or diarrhea. No complaints of chest pain or shortness of breath. Patient is awaiting court hearing for guardianship. blood pressure is controlled. No complaints of headache or dizziness or lightheadedness. Laboratory data reviewed. 02/16/2023 Patient is currently lying in the bed. Awake alert but confused. Mental status at baseline. Patient developed lip swelling overnight with redness extending to the face bilaterally. Denies any complaints of shortness of breath. No difficulty swallowing. No nausea vomiting or abdominal pain or diarrhea. Lisinopril is on hold. Patient is not on lisinopril at home. Continue with amlodipine 10 mg daily. Laboratory showed sodium 131 potassium 3.3 chloride 96 bicarb is 27 BUN 10 and creatinine 0.87 and calcium 9.2. 02/17/2023 Patient is seen in follow-up and reports no acute overnight issues. Patient maintained on steroids and lisinopril has been discontinued. Swelling of the face has improved although discontinuous redness. Patient reports she is not using anything other than lipstick Chapstick that she always uses. Patient reports to eating with no difficulties although needs encouragement and patient has been drinking excessive amounts of water per nursing staff. Recommend fluid restrictions and close monitoring. Sodium slightly lower at 129 and will follow-up with repeat labs. Patient is afebrile denies chest pain or palpitations. Patient denies shortness of breath and vital signs have been stable. 02/18/2023 Patient is seen and evaluated in follow-up today and being closely monitored. Patient continues to await guardianship decision on possible AFC and safe discharge planning and social work along with APS continuing to attempt to contact family which have been unsuccessful. Lisinopril being held and is showing improvement in swelling continues with some facial redness otherwise swelling has improved. We'll continue current regimen and monitor blood pressure closely. Potassium is 3.2 today and will replace per protocol and follow-up with repeat labs. Sodium has improved and is currently 133. Encouraged oral intake and will add supplements. 02/19/2023 Patient is seated evaluated in follow-up today with no acute overnight issues noted. Patient has not been sleeping very well per nursing staff and has been up most of the night throughout most of the day. Patient with social work following continuing to work with APS along with guardian in regards to safe discharge planning. Patient is afebrile denies chest pain or shortness of breath reports is tolerating diet and eating although needs encouragement and is continued on fluid retractions. Will follow-up with repeat potassium and replace per protocol if needed. 02/20/2023 Patient is seen and evaluated in follow-up in being closely monitored. Follow- up potassium improved to 4.2 and patient reports is tolerating oral intake. Patient denies chest pain or shortness of breath remains afebrile. Blood pressure stable and will continue current regimen. Patient continues to frequently wash and rub her face multiple times throughout the day per nursing staff and excessively rubbing since her concerns of ALLERGIC reaction. Patient denies any throat swelling, tongue swelling or difficulty breathing. Patient is maintaining oxygen saturations above 95% on room air. Patient is continued on prednisone and will continue to taper. Continue Benadryl as needed. Social work following continuing to work with by mouth guardian office as well as APS and safe discharge planning. 02/21/2023 Patient is seen and evaluated in follow-up today continuing to await for safe discharge planning. Per social work the go guardian is following up with patient's spouse in regard to financial situations as he is currently in a custodial in the [facility] and not back home for another 2 weeks. Working on potentially applying for Medicaid for possible AFC. Patient is afebrile with no reports of chest pain or shortness of breath. Patient is tolerating diet. Patient needs frequently orienting in regards to rubbing and itching her face she continues to wash and scratch at her face multiple times throughout the day. Redness is improving from possible ALLERGIC reaction to lisinopril. Patient is on a prednisone taper and will titrate further. Encourage oral intake and will continue to monitor closely while awaiting for safe discharge planning. 02/22/2023 Patient evaluated today resting in bed with no acute complaints. Pending discharge planning with social work. Potassium improved currently 4.4. 02/23/2023 Patient is evaluated today resting comfortably in bed with no acute complaints. Has been up ambulating in the room. Facial edema and redness has significantly improved patient has completed an oral steroid taper and remains off lisinopril at this time. Blood pressure currently 102/46 amlodipine is cut down. Pending discharge planning with social work and APS. 02/24/2023 Patient is seen and evaluated in follow-up this morning and per social work today is an observed holiday and APS guardian's office are closed. Social work will follow-up in the a.m. regards to possible medication application and discharge planning moving forward. Patient's spouse would like her to return home when he returns from custodial was not home. Patient is afebrile with no reports of chest pain or shortness of breath. Patient is tolerating diet with no reports of nausea or vomiting noted. Will continue to monitor closely while working with social media manager, safe discharge plan. 02/25/2023 Patient is seen and evaluated in follow-up today and reports some mild abdominal discomfort likely gastritis and will add Protonix twice daily. Patient continues to await safe discharge planning with social work following and working with legal guardian that was obtained. Attempting to apply for Medicaid for AFC. Patient is afebrile with no reports of chest pain or shortness of breath noted. Patient is tolerating diet and needs encouragement. Recommend ensure supplements in between meals. Would also encourage and recommend nursing staff walking the patient frequently around the unit daily. Will follow up with social work. 02/26/2023 Patient is seen and evaluated in follow-up reports her abdominal discomfort has improved occasionally have some mild cramping noted on the left side. Patient reports is having bowel movements and passing gas and patient denies any pain or burning or frequency with urination. Patient is afebrile and vital signs are stable. Social work following closely working with guardianship office in attempts to apply for Medicaid and continuing to await safe discharge plan. Patient is becoming increasingly more restless medication and wants to go home. Reinforced to the patient is a very slow process regarding insurance, guardianship, social issues. Patient is very pleasant and cooperative. 02/27/2023 Patient is seen and evaluated in follow-up today currently resting although easily arousable. Patient reports to tolerating diet with no reports of nausea vomiting noted. Patient denies any chest pain or shortness of breath and has been up and ambulating in her room frequently. Social work working diligently with APS along with guardian's office as patient has a legal guardian appointed to her currently working on possible Medicaid application. A few ECF looking into the case and reviewing. Patient is pleasant and cooperative with no reports of pain noted. Will follow up with some labs in the a.m. Review of Systems Constitutional: No reports of fatigue, denied any fever. Cardio vascular: denied any chest pain, palpitations Gastrointestinal: denied any nausea, vomiting, diarrhea Pulmonary: Denied any shortness of breath cough Neurologic denied any new focal deficits PHYSICAL EXAMINATION: GENERAL: The patient is alert and oriented x1. Anxious at times. Awake. cooperative. Well developed, well nourished. HEENT: Pupils are round and equally reacting to light. EOMI. No scleral icterus. No conjunctival pallor. Normocephalic, atraumatic. No pharyngeal erythema. No thyromegaly. CARDIOVASCULAR: S1 and S2 present. No murmurs, rubs, or gallops. PULMONARY: Chest is clear to auscultation, no wheezing or crackles. ABDOMEN: Soft, nontender, nondistended, normoactive bowel sounds. No palpable organomegaly. MUSCULOSKELETAL: No joint swelling or deformity. EXTREMITIES: No cyanosis, clubbing, or pedal edema. NEUROLOGICAL: Gross neurological examination did not reveal any focal deficits. Limited neurological exam because of her advanced dementia SKIN: No rashes. redness noted of the face has improved. Assessment: -Angioedema. Patient developed lip swelling overnight. Possibly ALLERGIC reaction to lisinopril. Lisinopril discontinued , improved -Advanced dementia patient is presently not encephalopathic patient confusion is at her baseline. -Acute abdominal pain with dyspepsia, likely gastritis, Improved -Hypokalemia, improved -Hyponatremia, secondary to poor oral intake possible component of excessive water intake, improved -Anxiety disorder -Hypertension -DVT prophylaxis: Lovenox -GI prophylaxis: Protonix -Full Code Plan: Recommend to continue with current medications and management. Encourage supplements between meals and encouraged oral intake Would recommend walking around the unit frequent times with staff and continued reorientation Social work is following and has discussed guardian about applying for Medicaid application to determine and figure out safe discharge plan to AFC or ECF . ECF at [facility] and [facility] reviewing the case if they can accommodate the patient and will follow-up with social work. whom she normally resides with is currently in a custodial as he was hospitalized requiring ECF on discharge. Per social work he reports he would like to take the patient home once he is home and is agreeable to work with APS to evaluate the home. Will follow-up with repeat labs in the a.m. and continue to monitor closely Patient is an elopement risk and at baseline alert and oriented 1 with advanced dementia Patient is medically stable for discharge and awaiting to speak further with legal guardian and social work in regards to safe discharge with possible AFC versus ECF Prognosis guarded The impression and plan of care has been dictated by Pepper Pablo, Nurse Practitioner as directed. Dr. Jimmy MD I have performed a history and examination and MDM of this patient, discussed the same with the dictator, and agree with the dictator's assessment and plan as written ,documented as a scribe. Based on total visit time, I have performed more than 50% of the visit. Objective - Vital Signs Vital signs: Vital Signs Temp 98.3 F 02/27/23 14:00 Pulse 107 H 02/27/23 14:00 Resp 17 02/27/23 14:00 BP 128/87 02/27/23 14:00 Pulse Ox 99 02/27/23 14:00 FiO2 Intake & Output 02/26/23 02/27/23 02/27/23 18:59 06:59 18:59 Intake Total 620 Balance 620 Weight 60.2 kg Intake: Oral 620 Other: Voiding Method Toilet # Voids 3 3 - Labs CBC & Chem 7: 02/17/23 06:38 02/20/23 06:09
[2023-02-27] MEDS: LORazepam 0.5 MG TAB PO PRN (18:14)
[2023-02-28] MEDS: LORazepam 0.5 MG TAB PO PRN (03:00)
[2023-02-28] MEDS: PANTOPRAZOLE 40 MG TABLET PO SCH (03:00)
[2023-02-28] MEDS: ACETAMINOPHEN TAB 325 MG TAB PO PRN ×2 (03:02→10:16)
[2023-02-28] MEDS: ENOXAPARIN 40 MG/0.4 ML SYRINGE SQ SCH (08:25)
[2023-02-28] MEDS: amLODIPine 2.5 MG TAB PO SCH (08:25)
[2023-02-28] MEDS: FAMOTIDINE 20 MG TAB PO SCH (08:25)
[2023-02-28] MEDS: DONEPEZIL 10 MG TAB PO SCH (08:25)
[2023-02-28 08:45] VITALS: BP 112/69; PULSE 62; RESP 15; TEMP 97.9
[2023-02-28 09:29] LABS: Basophils # (A) 0.03 X 10*3/uL (0.00-0.10); Basophils % (A) 0.4 %; Eosinophils # (A) 0.05 X 10*3/uL (0.04-0.35); Eosinophils % (A) 0.6 %; HCT 37.3 % (37.2-46.3); HGB 12.5 d/dL (12.0-15.0); Lymphocytes # (A) 1.66 X 10*3/uL (0.90-5.00); Lymphocytes % (A) 20.9 %; MCH 28.9 pg (27.0-32.0); MCHC 33.5 d/dL (32.0-37.0); MCV 86.1 FL (80.0-97.0); Mean Platelet Volume 10.4 FL (9.5-12.2); Monocytes # (A) 0.61 X 10*3/uL (0.20-1.00); Monocytes % (A) 7.7 %; NRBC Per 100 WBC 0 X 10*3/uL (0.00-0.01); Neutrophils # (A) 5.56 X 10*3/uL (1.80-7.70); Neutrophils % (A) 69.9 %; Platelet Count 249 X 10*3/uL (140-440); RBC 4.33 X 10*6/uL (4.10-5.20); RDW 12.9 % (11.5-14.5); WBC 7.95 X 10*3/uL (4.50-10.00)
[2023-02-28 09:40] LABS: BUN/Creat Ratio 15.78 Ratio (12.00-20.00); Blood Urea Nitrogen 14.2 mg/dL (9.0-27.0); Calcium 9.1 mg/dL (8.7-10.3); Carbon Dioxide 27.7 mmol/L (21.6-31.8); Chloride 100 mmol/L (96-109); Glucose 82 mg/dL (70-110); Magnesium 2.1 mg/dL (1.5-2.4); Potassium 4.1 mmol/L (3.5-5.5); Sodium 137 mmol/L (135-145)
--- NOTE | 2023-02-28 10:51 | P.PN ---
Subjective 72-year-old pleasant female with advanced dementia probably dementia of Alzheimer's type was brought in by the family members as her was a c aretaker is hospitalized at [facility] patient denied any symptoms at this time patient is unable to provide much of the history patient is alert oriented 1 but pleasant. Basic labs are essentially within normal limits. No significant abnormality was evident on chest x-ray and CT of the head 02/07/2023 Pending PT/OT evauation and placement. Hemodynamically stable. Discharge chichi godinez in progress with social work. Patient is evaluated today up in the chair with staff at the bedside. Patient is alert x 1 and pleasant with no acute complaints. APS services is following the patient. 02/08/2023 Patient unable to be discharged to subacute rehab yesterday as patient is pending guardianship with APS following and will require ECF on discharge. Patient remains alert x 1, pleasant does have difficulty findings words this is baseline with advanced dementia at baseline. Patient is asking about her today. Patient has no complaints at this time. 02/09/2023 Patient has no acute complaints overnight. Patient has been up ambulating in the room and dressed in street clothes. Patient is asking about discharge. May require legal guardian and also APS following with ECF needed on discharge. Patient has advanced dementia at baseline. 02/10/2023 Patient currently with no acute complaints. Alert x 1 today and pleasant. Pending guardianship and placement currently. Follow up with social work. 02/11/2023 Patient is seen and evaluated in follow-up currently sitting up in bed with no reports of nausea or vomiting noted. Patient reports tolerating diet. Patient denies chest pain or shortness of breath and currently awaiting possible guardianship hearing on Friday. Social work is involved and has been working with arranging for AFC availability as well as APS. Patient continues to be at her baseline alert and oriented 1 and is pleasant and cooperative. Will foll ow-up with repeat labs in a.m. 02/12/2023 Patient is seen and evaluated in follow-up today patient reports being tired although easily arousable. Patient is pleasantly confused and at her baseline with dementia. Follow-up labs show a potassium of 3.0 and will replace per protocol and repeat labs in the a.m. Patient is afebrile denies chest pain or shortness of breath. No reports of nausea or vomiting and patient is tolerating diet. Social work following along with APS and patient does have guardianship hearing on Friday. 02/13/2023 Patient is seen and evaluated in follow-up no acute overnight issues noted. Patient has a court hearing tomorrow for guardianship with social work following closely. Plan is for patient to go to AFC once guardianship hearing is settled. Patient is currently afebrile with no reports of chest pain or shortness of breath. Patient is tolerating diet and needs encouragement with oral intake. 02/14/2023 Patient is seen and evaluated in follow-up today currently awaiting a court hearing with social work today for guardianship. APS and social work following closely working on possible AFC for safe discharge planning. Patient is tolerating oral intake needs encouragement she eats very little with no reports of nausea or vomiting noted. Patient denies any chest pain or shortness of breath. Patient has been up and walking to the bathroom independently with no difficulties. Currently awaiting on possible AFC and will await court hearing to determine guardianship. 02/15/2023 Patient is currently lying in the bed. Awake alert but still confused. Able to walk to the bathroom. Denies any complaints of nausea vomiting or diarrhea. No complaints of chest pain or shortness of breath. Patient is awaiting court hearing for guardianship. blood pressure is controlled. No complaints of headache or dizziness or lightheadedness. Laboratory data reviewed. 02/16/2023 Patient is currently lying in the bed. Awake alert but confused. Mental status at baseline. Patient developed lip swelling overnight with redness extending to the face sonia aterally. Denies any complaints of shortness of breath. No difficulty swallowing. No nausea vomiting or abdominal pain or diarrhea. Lisinopril is on hold. Patient is not on lisinopril at home. Continue with amlodipine 10 mg daily. Laboratory showed sodium 131 potassium 3.3 chloride 96 bicarb is 27 BUN 10 and creatinine 0.87 and calcium 9.2. 02/17/2023 Patient is seen in follow-up and reports no acute overnight issues. Patient maintained on steroids and lisinopril has been discontinued. Swelling of the face has improved although discontinuous redness. Patient reports she is not using anything other than lipstick Chapstick that she always uses. Patient reports to eating with no difficulties although needs encouragement and patient has been drinking excessive amounts of water per nursing staff. Recommend fluid restrictions and close monitoring. Sodium slightly lower at 129 and will follow-up with repeat labs. Patient is afebrile denies chest pain or palpitations. Patient denies shortness of breath and vital signs have been stable. 02/18/2023 Patient is seen and evaluated in follow-up today and being closely monitored. Patient continues to await guardianship decision on possible AFC and safe discharge planning and social work along with APS continuing to attempt to c ontact family which have been unsuccessful. Lisinopril being held and is showing improvement in swelling continues with some facial redness otherwise swelling has improved. We'll continue current regimen and monitor blood pressure closely. Potassium is 3.2 today and will replace per protocol and follow-up with repeat labs. Sodium has improved and is currently 133. Encouraged oral intake and will add supplements. 02/19/2023 Patient is seated evaluated in follow-up today with no acute overnight issues noted. Patient has not been sleeping very well per nursing staff and has been up most of the night throughout most of the day. Patient with social work following continuing to work with APS along with guardian in regards to safe discharge planning. Patient is afebrile denies chest pain or shortness of breath reports is tolerating diet and eating although needs encouragement and is continued on fluid retractions. Will follow-up with repeat potassium and replace per protocol if needed. 02/20/2023 Patient is seen and evaluated in follow-up in being closely monitored. Follow- up potassium improved to 4.2 and patient reports is tolerating oral intake. Patient denies chest pain or shortness of breath remains afebrile. Blood pressure stable and will continue current regimen. Patient continues to frequently wash and rub her face multiple times throughout the day per nursing staff and excessively rubbing since her concerns of ALLERGIC reaction. Patient denies any throat swelling, tongue swelling or difficulty breathing. Patient is maintaining oxygen saturations above 95% on room air. Patient is continued on prednisone and will continue to taper. Continue Benadryl as needed. Social work following continuing to work with by mouth guardian office as well as APS and safe discharge planning. 02/21/2023 Patient is seen and evaluated in follow-up today continuing to await for safe discharge planning. Per social work the go guardian is following up with patient's spouse in regard to financial situations as he is currently in a [facility] in the [facility] and not back home for another 2 weeks. Working on potentially applying for Medicaid for possible AFC. Patient is afebrile with no reports of chest pain or shortness of breath. Patient is tolerating diet. Patient needs frequently orienting in regards to rubbing and itching her face she continues to wash and scratch at her face multiple times throughout the day. Redness is improving from possible ALLERGIC reaction to lisinopril. Patient is on a prednisone taper and will titrate further. Encourage oral intake and will continue to monitor closely while awaiting for safe discharge planning. 02/22/2023 Patient evaluated today resting in bed with no acute complaints. Pending discharge planning with social work. Potassium improved currently 4.4. 02/23/2023 Patient is evaluated today resting comfortably in bed with no acute complaints. Has been up ambulating in the room. Facial edema and redness has significantly improved patient has completed an oral steroid taper and remains off lisinopril at this time. Blood pressure currently 102/46 amlodipine is cut down. Pending discharge planning with social work and APS. 02/24/2023 Patient is seen and evaluated in follow-up this morning and per social work today is an observed holiday and APS guardian's office are closed. Social work will follow-up in the a.m. regards to possible medication application and discharge planning moving forward. Patient's spouse would like her to return home when he returns from mcc was not home. Patient is afebrile with no reports of chest pain or shortness of breath. Patient is tolerating diet with no reports of nausea or vomiting noted. Will continue to monitor closely while working with rn social work, safe discharge plan. 02/25/2023 Patient is seen and evaluated in follow-up today and reports some mild abdominal discomfort likely gastritis and will add Protonix twice daily. Patient continues to await safe discharge planning with social work following and working with legal guardian that was obtained. Attempting to apply for Medicaid for AFC. Patient is afebrile with no reports of chest pain or shortness of breath noted. Patient is tolerating diet and needs encouragement. Recommend ensure supplements in between meals. Would also encourage and recommend nursing staff walking the patient frequently around the unit daily. Will follow up with social work. 02/26/2023 Patient is seen and evaluated in follow-up reports her abdominal discomfort has improved occasionally have some mild cramping noted on the left side. Patient reports is having bowel movements and passing gas and patient denies any pain or burning or frequency with urination. Patient is afebrile and vital signs are stable. Social work following closely working with guardianship office in [place] to apply for Medicaid and continuing to await safe discharge plan. Patient is becoming increasingly more restless medication and wants to go home. Reinforced to the patient is a very slow process regarding insurance, guardianship, social issues. Patient is very pleasant and cooperative. 02/27/2023 02/28/2023 Patient pending placement She has angioedema secondary to lisinopril which was held and discontinued. 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 She has little insight into her illness. Vital dolly and CBC and BMP from today are normal Objective - Vital Signs Vital signs: Vital Signs Temp 97.9 F 02/28/23 07:06 Pulse 62 02/28/23 07:06 Resp 15 02/28/23 07:06 BP 112/69 02/28/23 07:06 Pulse Ox 99 02/28/23 07:06 FiO2 Intake & Output 02/27/23 02/28/23 02/28/23 18:59 06:59 18:59 Intake Total 500 Balance 500 Weight 60.4 kg Intake: Oral 500 Other: Voiding Method Toilet # Voids 4 3 - Exam -GENERAL: The patient is alert and oriented x0, not in any acute distress. Well developed, well nourished. HEENT: Pupils are round and equally reacting to light. EOMI. No scleral icterus. No conjunctival pallor. Normocephalic, atraumatic. No pharyngeal erythema. No thyromegaly. CARDIOVASCULAR: S1 and S2 present. No murmurs, rubs, or gallops. PULMONARY: Chest is clear to auscultation, no wheezing , no crackles. ABDOMEN: Soft, nontender, nondistended, normoactive bowel sounds. No palpable organomegaly. MUSCULOSKELETAL: No joint swelling or deformity. EXTREMITIES: No cyanosis, clubbing, or pedal edema. NEUROLOGICAL: Gross neurological examination did not reveal any focal deficits. SKIN: No rashes. no petechiae. - Labs CBC & Chem 7: 02/28/23 06:11 02/28/23 06:11 Assessment and Plan Assessment: -Angioedema. Patient developed lip swelling overnight. Possibly ALLERGIC reaction to lisinopril. Lisinopril discontinued , improved -Advanced dementia patient is presently not encephalopathic patient confusion is at her baseline. -Acute abdominal pain with dyspepsia, likely gastritis, Improved -Hypokalemia, improved -Hyponatremia, secondary to poor oral intake possible component of excessive water intake, improved -Anxiety disorder -Hypertension Plan: interior surface insulation worker on the case for placement Continue monitoring Labs and medication were reviewed.. Continue same treatment. Continue with symptomatic treatment. Resume home medication. Monitor labs and vitals. DVT and GI prophylaxis. Further recommendations as per clinical course of the patient DVT prophylaxis: Subcutaneous Lovenox GI Prophylaxis: Pepcid PT/OT: Pending placement Prognosis is guarded
== END 2023-02-28 15:24 | DRG 57 ==
LOC: EC 13:37 → EEVIPCON 02-06 00:20 → 4SSUR 02-06 00:20
PROVIDERS: ADMIT Hospitalist; ATTEND Hospitalist
DX: G30.9 Alzheimer's disease, unspecified (principal); E87.1 Hypo-osmolality and hyponatremia; F02.811 Dementia in other diseases classified elsewhere, unspecified severity, with agitation; F02.84 Dementia in other diseases classified elsewhere, unspecified severity, with anxiety; I10 Essential (primary) hypertension; T78.3XXA Angioneurotic edema, initial encounter; E87.6 Hypokalemia; T46.4X5A Adverse effect of angiotensin-converting-enzyme inhibitors, initial encounter; K29.70 Gastritis, unspecified, without bleeding; K30 Functional dyspepsia; Z74.8 Other problems related to care provider dependency; Z88.8 Allergy status to other drugs, medicaments and biological substances; Z79.899 Other long term (current) drug therapy; Z75.1 Person awaiting admission to adequate facility elsewhere
CPT/HCPCS: 36415; 70450; 71046; 80048; 80053; 81003; 83735; 84132; 85025; 93005; 99285